=== PATIENT | female | born 1940 | race Caucasian/White ===

== ENCOUNTER 2017-10-28 13:43 | Inpatient (IN) | payer MEDICARE ==
[2017-10-28] MEDS ORDERED: SODIUM CHLORIDE 0.9% 1,000 ML IV STA (14:07)
--- NOTE | 2017-10-28 14:09 | ED ---
General Adult HPI - General Chief complaint: Recheck/Abnormal Lab/Rx Stated complaint: Ca PATIENT LOW BP, HIGH HEART RATE Time Seen by Provider: 10/28/17 14:01 Source: patient, family, RN notes reviewed Mode of arrival: wheelchair Limitations: no limitations - History of Present Illness Initial comments: Patient is a pleasant 76-year-old female presenting to the emergency department for hypotension. Patient went to her oncologist today and had blood pressure of 80. After fluids patient's blood pressure remained 90 systolic. Patient has been short of breath. Patient has been easily fatigued. No history of cardiac arrhythmia. Patient does have a history of CLL and is currently under treatment for this. - Related Data Home Medications Medication Instructions Recorded Confirmed Allopurinol [Allopurinol] 100 mg PO HS 07/20/14 10/28/17 Calcium Carbonate/Vitamin D3 1 tab PO DAILY 07/20/14 10/28/17 [Caltrate 600 Plus D3 Tablet] Cholecalciferol [Vitamin D3] 1,000 unit PO DAILY 07/20/14 10/28/17 Ferrous Sulfate [Feosol] 325 mg PO DAILY 07/20/14 10/28/17 LORazepam [Ativan] 0.5 mg PO BID PRN 07/20/14 10/28/17 Lutein 10 mg PO DAILY 07/20/14 10/28/17 Meclizine [Antivert] 25 mg PO TID PRN 07/20/14 10/28/17 Multivitamins, Thera [Multivitamin] 1 tab PO DAILY 07/20/14 10/28/17 Omeprazole [PriLOSEC] 20 mg PO DAILY 07/20/14 10/28/17 amLODIPine BESYLATE [Amlodipine 5 mg PO DAILY 07/20/14 10/28/17 Besylate] Citalopram Hydrobromide [CeleXA] 20 mg PO DAILY 10/28/17 10/28/17 Imbruvica 140mg 420 mg PO DAILY 10/28/17 10/28/17 Montelukast [Singulair] 10 mg PO HS 10/28/17 10/28/17 Allergies Allergy/AdvReac Type Severity Reaction Status Date / Time codeine Allergy Confusion Verified 10/28/17 15:03 morphine Allergy Confusion Verified 10/28/17 15:03 Penicillins AdvReac Rash/Hives Verified 10/28/17 15:03 Review of Systems ROS Statement: Those systems with pertinent positive or pertinent negative responses have been documented in the HPI. ROS Other: All systems not noted in ROS Statement are negative. Constitutional: Denies: fever Eyes: Denies: eye pain ENT: Denies: ear pain Respiratory: Reports: cough, dyspnea Cardiovascular: Denies: chest pain Endocrine: Reports: fatigue Gastrointestinal: Denies: abdominal pain Genitourinary: Denies: dysuria Musculoskeletal: Denies: back pain Skin: Denies: rash Neurological: Denies: weakness Past Medical History Past Medical History: Cancer, Hypertension, Osteoarthritis (OA) Additional Past Medical History / Comment(s): itp,cll History of Any Multi-Drug Resistant Organisms: None Reported Past Surgical History: Appendectomy, Bariatric Surgery, Cholecystectomy, Hernia Repair, Hysterectomy, Tubal Ligation Past Anesthesia/Blood Transfusion Reactions: No Reported Reaction Past Psychological History: Depression Smoking Status: Former smoker Past Alcohol Use History: None Reported Past Drug Use History: None Reported General Exam Limitations: no limitations General appearance: alert, in no apparent distress Head exam: Present: atraumatic Eye exam: Present: normal appearance, PERRL ENT exam: Present: normal oropharynx Neck exam: Present: normal inspection Respiratory exam: Present: decreased breath sounds (Right base) Cardiovascular Exam: Present: tachycardia, irregular rhythm Expanded Peripheral pulses: 2+: Radial (R), Radial (L), Posterior Tibialis (R), Posterior Tibialis (L) GI/Abdominal exam: Present: soft. Absent: tenderness Extremities exam: Present: normal inspection. Absent: pedal edema, calf tenderness Neurological exam: Present: alert Psychiatric exam: Present: normal affect, normal mood Skin exam: Present: normal color Course Vital Signs 10/28/17 10/28/17 10/28/17 13:44 14:36 14:40 Temperature 98.5 F Pulse Rate 132 H 122 H Respiratory 16 18 18 Rate Blood Pressure 131/83 123/75 O2 Sat by Pulse 95 97 Oximetry 10/28/17 15:42 Temperature Pulse Rate 125 H Respiratory 20 Rate Blood Pressure 137/84 O2 Sat by Pulse 96 Oximetry EKG Findings - EKG Comments: EKG Findings:: A. fib with RVR, rate 118. QRS 94. QT 336. QTc 470. Normal axis. T-wave inversion in inferior. Q wave in V1. Lateral ST depression. Medical Decision Making - Medical Decision Making Patient reevaluated and resting comfortably in bed. Patient and family updated on results and plan. Dr. Reyes has been paged for admission for Dr. Yuen. Cardiology will be consulted for new onset atrial fibrillation. - Lab Data Result diagrams: 10/28/17 14:30 10/28/17 14:30 Lab Results 10/28/17 10/28/17 10/28/17 Range/Units 14:30 14:30 14:30 WBC 14.1 H (3.8-10.6) k/uL RBC 3.19 L (3.80-5.40) m/uL Hgb 10.0 L (11.4-16.0) gm/dL Hct 32.0 L (34.0-46.0) % MCV 100.4 H (80.0-100.0) fL MCH 31.2 (25.0-35.0) pg MCHC 31.1 (31.0-37.0) g/dL RDW 14.8 (11.5-15.5) % Plt Count 172 (150-450) k/uL Neutrophils % (Manual) 16 % Lymphocytes % (Manual) 79 % Monocytes % (Manual) 5 % Neutrophils # (Manual) 2.26 (1.3-7.7) k/uL Lymphocytes # (Manual) 11.14 H (1.0-4.8) k/uL Monocytes # (Manual) 0.71 (0-1.0) k/uL Nucleated RBCs 0 (0-0) /100 WBC Polychromasia Present Hypochromasia Slight Poikilocytosis Slight Macrocytosis Slight PT (9.0-12.0) sec INR (<1.2) APTT (22.0-30.0) sec Sodium 143 (137-145) mmol/L Potassium 3.2 L (3.5-5.1) mmol/L Chloride 111 H (98-107) mmol/L Carbon Dioxide 25 (22-30) mmol/L Anion Gap 7 mmol/L BUN 23 H (7-17) mg/dL Creatinine 1.13 H (0.52-1.04) mg/dL Est GFR (MDRD) Af Amer 57 (>60 ml/min/1.73 sqM) Est GFR (MDRD) Non-Af 47 (>60 ml/min/1.73 sqM) Glucose 119 H (74-99) mg/dL Calcium 8.6 (8.4-10.2) mg/dL Total Bilirubin 2.4 H (0.2-1.3) mg/dL AST 16 (14-36) U/L ALT 19 (9-52) U/L Alkaline Phosphatase 71 (38-126) U/L Total Creatine Kinase <20 L (30-135) U/L CK-MB (CK-2) 0.4 (0.0-2.4) ng/mL CK-MB (CK-2) Rel Index Troponin I 0.016 (0.000-0.034) ng/mL NT-Pro-B Natriuret Pep pg/mL Total Protein 4.8 L (6.3-8.2) g/dL Albumin 2.9 L (3.5-5.0) g/dL 10/28/17 10/28/17 Range/Units 14:30 14:30 WBC (3.8-10.6) k/uL RBC (3.80-5.40) m/uL Hgb (11.4-16.0) gm/dL Hct (34.0-46.0) % MCV (80.0-100.0) fL MCH (25.0-35.0) pg MCHC (31.0-37.0) g/dL RDW (11.5-15.5) % Plt Count (150-450) k/uL Neutrophils % (Manual) % Lymphocytes % (Manual) % Monocytes % (Manual) % Neutrophils # (Manual) (1.3-7.7) k/uL Lymphocytes # (Manual) (1.0-4.8) k/uL Monocytes # (Manual) (0-1.0) k/uL Nucleated RBCs (0-0) /100 WBC Polychromasia Hypochromasia Poikilocytosis Macrocytosis PT 11.0 (9.0-12.0) sec INR 1.1 (<1.2) APTT 22.1 (22.0-30.0) sec Sodium (137-145) mmol/L Potassium (3.5-5.1) mmol/L Chloride (98-107) mmol/L Carbon Dioxide (22-30) mmol/L Anion Gap mmol/L BUN (7-17) mg/dL Creatinine (0.52-1.04) mg/dL Est GFR (MDRD) Af Amer (>60 ml/min/1.73 sqM) Est GFR (MDRD) Non-Af (>60 ml/min/1.73 sqM) Glucose (74-99) mg/dL Calcium (8.4-10.2) mg/dL Total Bilirubin (0.2-1.3) mg/dL AST (14-36) U/L ALT (9-52) U/L Alkaline Phosphatase (38-126) U/L Total Creatine Kinase (30-135) U/L CK-MB (CK-2) (0.0-2.4) ng/mL CK-MB (CK-2) Rel Index Troponin I (0.000-0.034) ng/mL NT-Pro-B Natriuret Pep 874 pg/mL Total Protein (6.3-8.2) g/dL Albumin (3.5-5.0) g/dL - Radiology Data Radiology results: image reviewed (Two-view chest x-ray shows moderate to large right-sided effusion.) Critical Care Time Critical Care Time: Yes Total Critical Care Time: 31 Disposition Clinical Impression: Atrial fibrillation with RVR Disposition: ADMITTED IP TO THIS [facility] Referrals: Jake Yuen MD [Primary Care Provider] - 1-2 days Decision Time: 15:48
--- NOTE | 2017-10-28 14:51 | XR ---
EXAMINATION TYPE: XR chest 2V DATE OF EXAM: 10/28/2017 COMPARISON: None HISTORY: 76-year-old female difficulty breathing TECHNIQUE: PA and lateral views FINDINGS: Right heart margin obscured by adjacent pleural parenchymal disease. There is a moderate to large rig ht-sided pleural effusion. Left lung and pleural space appear clear. IMPRESSION: Moderate to large right-sided pleural effusion. There could be underlying adjacent atelectasis and/or consolidation.
[2017-10-28 15:03] LABS: Hypochromasia Slight; MCH 31.2 pg (25.0-35.0); MCHC 31.1 g/dL (31.0-37.0); MCV 100.4 fL (80.0-100.0); Macrocytosis Slight; Platelet Count 172 k/uL (150-450); Poikilocytosis Slight; RBC 3.19 m/uL (3.80-5.40); RDW 14.8 % (11.5-15.5); WBC 14.1 k/uL (3.8-10.6)
[2017-10-28 15:07] LABS: Albumin 2.9 g/dL (3.5-5.0); Calcium 8.6 mg/dL (8.4-10.2); Potassium 3.2 mmol/L (3.5-5.1); Total Bilirubin 2.4 mg/dL (0.2-1.3); Total Protein 4.8 g/dL (6.3-8.2)
[2017-10-28 15:08] LABS: Creatine Kinase <20 U/L (30-135)
[2017-10-28 15:14] LABS: INR 1.1 (<1.2); Partial Thromboplastin Time 22.1 sec (22.0-30.0)
[2017-10-28 15:21] LABS: Creatine Kinase MB 0.4 ng/mL (0.0-2.4); Troponin I 0.016 ng/mL (0.000-0.034)
[2017-10-28 15:35] LABS: Lymphocytes # (M) 11.14 k/uL (1.0-4.8); Monocytes # (M) 0.71 k/uL (0-1.0); Neutrophils # (M) 2.26 k/uL (1.3-7.7); Neutrophils % (M) 16 %; Nucleated Red Blood Cells 0 /100 WBC (0-0); Polychromasia Present; Total Cells Counted 100
[2017-10-28] MEDS ORDERED: DILTIAZEM 125 MG in SODIUM CHLORIDE 0.9% 100 ML IV ONE (15:47)
[2017-10-28] MEDS ORDERED: NALOXONE 0.4 MG/ML 1 ML VIAL IV PRN (15:49)
[2017-10-28] MEDS: SODIUM CHLORIDE 0.9% 1,000 ML IV SCH (16:09)
[2017-10-28] MEDS ORDERED: MECLIZINE 25 MG TAB PO PRN (19:11)
[2017-10-28] MEDS ORDERED: Potassium Replacement Protocol 1 EACH MISC MISCELLANE PRN (19:21)
[2017-10-28] MEDS: MONTELUKAST 10 MG TAB PO SCH (20:10)
[2017-10-28] MEDS: LORazepam 0.5 MG TAB PO PRN (20:11)
[2017-10-28] MEDS: POTASSIUM CHLORIDE ER 20 MEQ TAB.ER PO SCH ×2 (20:11→22:36)
[2017-10-28] MEDS: ALLOPURINOL 100 MG TAB PO SCH (20:11)
[2017-10-29 03:47] LABS: Calcium 8.4 mg/dL (8.4-10.2); Potassium 3.3 mmol/L (3.5-5.1)
[2017-10-29] MEDS ORDERED: POTASSIUM CHLORIDE ER 20 MEQ TAB.ER PO ONE (05:30)
[2017-10-29] MEDS: PANTOPRAZOLE 40 MG TABLET PO SCH (06:19)
[2017-10-29] MEDS ORDERED: IMBRUVICA PO SCH (09:00)
[2017-10-29] MEDS ORDERED: NON-FORMULARY DRUG (Lutein [Lutein] 10 MG) PO SCH (09:00)
[2017-10-29] MEDS ORDERED: POTASSIUM CHLORIDE ER 20 MEQ TAB.ER PO STA (09:12)
--- NOTE | 2017-10-29 09:40 | US ---
EXAMINATION TYPE: US chest DATE OF EXAM: 10/29/2017 COMPARISON: 10/28/2017 CLINICAL HISTORY: Markings for thoracentesis by pulmonary staff. EXAM MEASUREMENTS: Right Pleural Effusion fluid pocket: 7.9 cm Right skin to fluid thickness: 2.0 cm Right side marked for possible thoracentesis outside the dept. Pulmonologists are able to review the images in the patient?s EMR. IMPRESSIONS: Redemonstration of a moderate to large right pleural effusion marked for thoracentesis.
[2017-10-29] MEDS: amLODIPine 5 MG TAB PO SCH (10:20)
[2017-10-29] MEDS: CITALOPRAM HYDROBROMIDE 20 MG TAB PO SCH (10:20)
--- NOTE | 2017-10-29 12:20 | P.CNPUL ---
History of Present Illness Consult date: 10/29/17 Requesting physician: Franck Reyes Reason for consult: dyspnea, abnormal CXR/CT Chief complaint: Shortness of breath, fatigue, weakness History of present illness: This is a very pleasant 76-year-old female patient who is with Dr. Yuen as her primary care physician. She has a history of hypertension, osteoarthritis, depression, previous smoking history. She also has a history of chronic lymphocytic leukemia and follows with Dr. Scherer for the same. She is on Imbruvica. She was seen yesterday at the oncology office and was found to be quite hypotensive. She was given a liter of fluid resuscitation without much improvement. She was quite fatigued and weak. She's also been having ongoing issues with shortness of breath. Her chest x-ray showed moderate to large right -sided pleural effusion with atelectasis. She was being set up for an outpatient thoracentesis along with IVIG treatment for next week however based on yesterday's finding she was admitted to the hospital. She was also found to be in atrial fibrillation with a rapid ventricular response which was new for the patient. She has since converted to sinus rhythm post-Cardizem drip. We are consulted for the large pleural effusion. An ultrasound of the chest shows a right-sided pocket of 7.9 cm. He is seen today in consultation on the active care unit. She is awake and alert in no acute distress. She is doing quite a bit better today as compared to yesterday. She is feeling stronger. She does have ongoing issues with shortness of breath on exertion. He is maintaining good O2 saturations in the 90s on 2 L/m per nasal cannula. Her blood pressure has recovered. She is hemodynamically stable. Afebrile. Results revealed WBC 14.1. Hemoglobin 10.0. Platelet count 172,000. Creatinine 1.20. ProBNP 874. Troponins negative 3. Review of Systems Constitutional: Reports fatigue, Reports malaise, Reports weakness Eyes: denies blurred vision, denies decreased vision Ears, nose, mouth and throat: Denies headache, Denies sore throat Cardiovascular: Reports irregular heart beat, Reports palpitations, Reports shortness of breath Respiratory: Reports congestion, Reports cough with sputum, Reports dyspnea Gastrointestinal: Denies abdominal pain, Denies diarrhea, Denies nausea, Denies vomiting Genitourinary: Denies dysuria, Denies hematuria Musculoskeletal: Denies myalgias Integumentary: Denies pruritus, Denies rash Neurological: Denies numbness, Denies weakness Psychiatric: Reports depression Past Medical History Past Medical History: Cancer, Hypertension, Osteoarthritis (OA) Additional Past Medical History / Comment(s): itp,cll, gastric bypass History of Any Multi-Drug Resistant Organisms: None Reported Past Surgical History: Appendectomy, Bariatric Surgery, Cholecystectomy, Hernia Repair, Tubal Ligation Past Anesthesia/Blood Transfusion Reactions: No Reported Reaction Past Psychological History: Depression Smoking Status: Former smoker Past Alcohol Use History: None Reported Past Drug Use History: None Reported - Past Family History Mother Family Medical History: Chest Pain / Angina, Myocardial Infarction (DC) Father Family Medical History: Chest Pain / Angina, Coronary Artery Disease (CAD), Myocardial Infarction (DC) Sister(s) Additional Family Medical History / Comment(s): kidney disease- hemodialysis Medications and Allergies Home Medications Medication Instructions Recorded Confirmed Type Allopurinol [Allopurinol] 100 mg PO HS 07/20/14 10/28/17 History Calcium Carbonate/Vitamin D3 1 tab PO DAILY 07/20/14 10/28/17 History [Caltrate 600 Plus D3 Tablet] Cholecalciferol [Vitamin D3] 1,000 unit PO DAILY 07/20/14 10/28/17 History Ferrous Sulfate [Feosol] 325 mg PO DAILY 07/20/14 10/28/17 History LORazepam [Ativan] 0.5 mg PO BID PRN 07/20/14 10/28/17 History Lutein 10 mg PO DAILY 07/20/14 10/28/17 History Meclizine [Antivert] 25 mg PO TID PRN 07/20/14 10/28/17 History Multivitamins, Thera [Multivitamin] 1 tab PO DAILY 07/20/14 10/28/17 History Omeprazole [PriLOSEC] 20 mg PO DAILY 07/20/14 10/28/17 History amLODIPine BESYLATE [Amlodipine 5 mg PO DAILY 07/20/14 10/28/17 History Besylate] Citalopram Hydrobromide [CeleXA] 20 mg PO DAILY 10/28/17 10/28/17 History Imbruvica 140mg 420 mg PO DAILY 10/28/17 10/28/17 History Montelukast [Singulair] 10 mg PO HS 10/28/17 10/28/17 History Allergies Allergy/AdvReac Type Severity Reaction Status Date / Time codeine Allergy Confusion Verified 10/28/17 15:03 morphine Allergy Confusion Verified 10/28/17 15:03 Penicillins AdvReac Rash/Hives Verified 10/28/17 15:03 Physical Exam Vitals: Vital Signs Temp Pulse Pulse Resp BP BP Pulse Ox 10/29/17 08:00 95 20 146/63 96 10/29/17 04:00 98.1 F 77 18 113/62 95 10/29/17 00:00 97.7 F 84 18 127/62 94 L 10/28/17 20:00 98.1 F 88 18 101/51 95 10/28/17 19:13 97.4 F L 106 H 18 117/64 96 10/28/17 16:45 97.8 F 110 H 20 125/63 96 10/28/17 15:42 125 H 20 137/84 96 10/28/17 14:40 18 10/28/17 14:36 122 H 18 123/75 97 10/28/17 13:44 98.5 F 132 H 16 131/83 95 Intake and Output 10/28/17 10/29/17 10/29/17 22:59 06:59 14:59 Intake Total 424.667 700 Output Total 300 225 Balance 124.667 475 Intake: Amount of Fluid Infused ( 300 ml) Intake, IV Titration 4.667 700 Amount Diltiazem 125 mg In 4.667 Sodium Chloride 0.9% 100 ml @ 5 MG/HR 5 mls/hr IV .Q24H [facility] Rx#:[id number] Sodium Chloride 0.9% 1, 700 000 ml @ 20 mls/hr IV . Q24H [facility] Rx#:[id number] Oral 120 Output: Urine 300 225 Other: Voiding Method Toilet Toilet Toilet # Bowel Movements 1 Weight 68 kg 70.1 kg GENERAL EXAM: Pale, cachectic. Alert, fairly comfortable in no apparent distress. HEAD: Normocephalic. EYES: Normal reaction of pupils, equal size. NOSE: Clear with pink turbinates. THROAT: No erythema or exudates. NECK: No masses, no JVD. CHEST: No chest wall deformity. LUNGS: Diminished in the right lung. CVS: S1 and S2 normal with no audible murmur, regular rhythm. ABDOMEN: No hepatosplenomegaly, normal bowel sounds, no guarding or rigidity. SPINE: Kyphoscoliosis SKIN: No rashes CENTRAL NERVOUS SYSTEM: No focal deficits, tone is normal in all 4 extremities. EXTREMITIES: There is no peripheral edema. No clubbing, no cyanosis. Peripheral pulses are intact. Results - Laboratory Findings CBC and BMP: 10/28/17 14:30 10/29/17 08:10 PT/INR, D-dimer PT 11.0 sec (9.0-12.0) 10/28/17 14:30 INR 1.1 (<1.2) 10/28/17 14:30 Abnormal lab findings: Abnormal Labs 10/28/17 10/28/17 10/28/17 14:30 14:30 14:30 WBC 14.1 H RBC 3.19 L Hgb 10.0 L Hct 32.0 L MCV 100.4 H Lymphocytes # (Manual) 11.14 H Potassium 3.2 L Chloride 111 H BUN 23 H Creatinine 1.13 H Glucose 119 H Total Bilirubin 2.4 H Total Creatine Kinase <20 L Total Protein 4.8 L Albumin 2.9 L 10/29/17 10/29/17 02:37 08:10 WBC RBC Hgb Hct MCV Lymphocytes # (Manual) Potassium 3.3 L 3.3 L Chloride 114 H BUN 23 H Creatinine 1.20 H Glucose Total Bilirubin Total Creatine Kinase Total Protein Albumin - Diagnostic Findings Chest x-ray: image reviewed Assessment and Plan Assessment: Impression: #1 Hypotension secondary to dehydration. Recovered. #2 Acute hypoxic respiratory failure secondary to large right pleural effusion. #3 Chronic lymphocytic leukemia currently receiving Imbruvica. #4 new-onset atrial fibrillation, currently in normal sinus rhythm. #5 History of arthritis. #6 History of hypertension. Plan: The patient was seen and evaluated by Dr. Chavez. We'll go ahead and plan for a right-sided thoracentesis. We'll send the fluid for cytology and analysis. She is otherwise stable from the pulmonary standpoint. We'll continue to follow and make further recommendations based on her clinical status. I, the cosigning physician, performed a history & physical examination of the patient. Lungs sounds are distant the right Maintaining good O2 saturations in the 90s on liters per minute per nasal cannula. I discussed the assessment and plan of care with my nurse practitioner, Rachel Rojas. I attest to the above note as dictated by her. Time with Patient: Greater than 30
--- NOTE | 2017-10-29 12:35 | P.CRDCN ---
History of Present Illness Consult date: 10/29/17 Requesting physician: Franck Reyes Reason for Consult (text): Atrial fibrillation Chief complaint: hypotension History of present illness: This is a pleasant 76-year-old female with history of CLL, hypertension and history of thrombocytopenia a few years ago. She has been apparently dealing with some pneumonia over the last several weeks and receiving antibiotics and steroids as an outpatient. Was sent to the emergency department after presenting to her oncologist's office and noted to have hypotension and elevated heart rate. She was bolused with normal saline while at her oncologist 's office with mild improvement in blood pressure. Upon arrival, she was found to be in atrial fibrillation with rapid ventricular response. Laboratory values are reviewed and showed a hemoglobin of 10, platelet count of 172,000, creatinine 1.2 and NT proBNP of 874 and troponins negative 3. Chest x-ray showed moderate to large right-sided pleural effusion. She subsequently underwent ultrasound of the chest that showed a 7.9 cm right sided fluid pocket which was marked for thoracentesis. She will likely be undergoing thoracentesis today by pulmonary. She's been on a Cardizem drip at 5 mg an hour. She has converted to sinus rhythm. Upon examination, patient complains of shortness of breath and difficulty taking a breath in. Her blood pressure has improved. She has no complaints of chest discomfort or palpitations at this time. She has noticed her heart racing over the last several weeks. Past Medical History Past Medical History: Cancer, Hypertension, Osteoarthritis (OA) Additional Past Medical History / Comment(s): itp,cll, gastric bypass History of Any Multi-Drug Resistant Organisms: None Reported Past Surgical History: Appendectomy, Bariatric Surgery, Cholecystectomy, Hernia Repair, Tubal Ligation Past Anesthesia/Blood Transfusion Reactions: No Reported Reaction Past Psychological History: Depression Smoking Status: Former smoker Past Alcohol Use History: None Reported Past Drug Use History: None Reported - Past Family History Mother Family Medical History: Chest Pain / Angina, Myocardial Infarction ([place]) Father Family Medical History: Chest Pain / Angina, Coronary Artery Disease (CAD), Myocardial Infarction ([place]) Sister(s) Additional Family Medical History / Comment(s): kidney disease- hemodialysis Medications and Allergies Home Medications Medication Instructions Recorded Confirmed Type Allopurinol [Allopurinol] 100 mg PO HS 07/20/14 10/28/17 History Calcium Carbonate/Vitamin D3 1 tab PO DAILY 07/20/14 10/28/17 History [Caltrate 600 Plus D3 Tablet] Cholecalciferol [Vitamin D3] 1,000 unit PO DAILY 07/20/14 10/28/17 History Ferrous Sulfate [Feosol] 325 mg PO DAILY 07/20/14 10/28/17 History LORazepam [Ativan] 0.5 mg PO BID PRN 07/20/14 10/28/17 History Lutein 10 mg PO DAILY 07/20/14 10/28/17 History Meclizine [Antivert] 25 mg PO TID PRN 07/20/14 10/28/17 History Multivitamins, Thera [Multivitamin] 1 tab PO DAILY 07/20/14 10/28/17 History Omeprazole [PriLOSEC] 20 mg PO DAILY 07/20/14 10/28/17 History amLODIPine BESYLATE [Amlodipine 5 mg PO DAILY 07/20/14 10/28/17 History Besylate] Citalopram Hydrobromide [CeleXA] 20 mg PO DAILY 10/28/17 10/28/17 History Imbruvica 140mg 420 mg PO DAILY 10/28/17 10/28/17 History Montelukast [Singulair] 10 mg PO HS 10/28/17 10/28/17 History Allergies Allergy/AdvReac Type Severity Reaction Status Date / Time codeine Allergy Confusion Verified 10/28/17 15:03 morphine Allergy Confusion Verified 10/28/17 15:03 Penicillins AdvReac Rash/Hives Verified 10/28/17 15:03 Physical Exam Vitals: Vital Signs Temp Pulse Pulse Resp BP BP Pulse Ox 10/29/17 08:00 95 20 146/63 96 10/29/17 04:00 98.1 F 77 18 113/62 95 10/29/17 00:00 97.7 F 84 18 127/62 94 L 10/28/17 20:00 98.1 F 88 18 101/51 95 10/28/17 19:13 97.4 F L 106 H 18 117/64 96 10/28/17 16:45 97.8 F 110 H 20 125/63 96 10/28/17 15:42 125 H 20 137/84 96 10/28/17 14:40 18 10/28/17 14:36 122 H 18 123/75 97 02/22/18 13:44 98.5 F 132 H 16 131/83 95 Intake and Output 10/28/17 10/29/17 10/29/17 22:59 06:59 14:59 Intake Total 424.667 700 Output Total 300 225 Balance 124.667 475 Intake: Amount of Fluid Infused ( 300 ml) Intake, IV Titration 4.667 700 Amount Diltiazem 125 mg In 4.667 Sodium Chloride 0.9% 100 ml @ 5 MG/HR 5 mls/hr IV .Q24H [facility] Rx#:[id number] Sodium Chloride 0.9% 1, 700 000 ml @ 20 mls/hr IV . Q24H [facility] Rx#:[id number] Oral 120 Output: Urine 300 225 Other: Voiding Method Toilet Toilet Toilet # Bowel Movements 1 Weight 68 kg 70.1 kg PHYSICAL EXAMINATION: HEENT: Head is atraumatic, normocephalic. Pupils equal, round. Neck is supple. There is no elevated jugular venous pressure. HEART EXAMINATION: Heart sounds regular, S1 and S2 normal. No murmur or gallop heard. CHEST EXAMINATION: Lungs reveal diminished air entry to right lower lobe. No chest wall tenderness is noted on palpation or with deep breathing. ABDOMEN: Soft, nontender. Bowel sounds are heard. No organomegaly noted. EXTREMITIES: 2+ peripheral pulses with no evidence of peripheral edema and no calf tenderness noted. NEUROLOGIC patient is awake, alert and oriented x3. . Results 10/28/17 14:30 10/29/17 08:10 Cardiac Enzymes 10/28/17 10/28/17 10/28/17 Range/Units 14:30 14:30 20:17 AST 16 (14-36) U/L CK-MB (CK-2) 0.4 (0.0-2.4) ng/mL Troponin I 0.016 0.015 (0.000-0.034) ng/mL 10/29/17 Range/Units 02:37 AST (14-36) U/L CK-MB (CK-2) (0.0-2.4) ng/mL Troponin I 0.016 (0.000-0.034) ng/mL Coagulation 10/28/17 Range/Units 14:30 PT 11.0 (9.0-12.0) sec APTT 22.1 (22.0-30.0) sec CBC 10/28/17 Range/Units 14:30 WBC 14.1 H (3.8-10.6) k/uL RBC 3.19 L (3.80-5.40) m/uL Hgb 10.0 L (11.4-16.0) gm/dL Hct 32.0 L (34.0-46.0) % Plt Count 172 (150-450) k/uL Comprehensive Metabolic Panel 10/28/17 10/29/17 10/29/17 Range/Units 14:30 02:37 08:10 Sodium 143 144 (137-145) mmol/L Potassium 3.2 L 3.3 L 3.3 L (3.5-5.1) mmol/L Chloride 111 H 114 H (98-107) mmol/L Carbon Dioxide 25 26 (22-30) mmol/L BUN 23 H 23 H (7-17) mg/dL Creatinine 1.13 H 1.20 H (0.52-1.04) mg/dL Glucose 119 H 82 (74-99) mg/dL Calcium 8.6 8.4 (8.4-10.2) mg/dL AST 16 (14-36) U/L ALT 19 (9-52) U/L Alkaline Phosphatase 71 (38-126) U/L Total Protein 4.8 L (6.3-8.2) g/dL Albumin 2.9 L (3.5-5.0) g/dL Current Medications Generic Name Dose Route Start Last Admin Trade Name Freq PRN Reason Stop Dose Admin Allopurinol 100 mg 10/28/17 21:00 10/28/17 20:11 Zyloprim PO 100 mg HS [facility] Administration Amlodipine Besylate 5 mg 10/29/17 09:00 10/29/17 10:20 Norvasc PO 5 mg DAILY [facility] Administration Calcium Carbonate 1 each 10/29/17 12:00 Oscal 500+D PO DAILY@1200 [facility] Cholecalciferol 1,000 unit 10/29/17 12:00 Vitamin D3 PO 1200 [facility] Citalopram Hydrobromide 20 mg 10/29/17 09:00 10/29/17 10:20 Celexa PO 20 mg DAILY [facility] Administration Ferrous Sulfate 325 mg 10/29/17 12:00 Feosol PO 1200 [facility] Sodium Chloride 1,000 mls @ 20 mls/hr 10/28/17 16:00 10/28/17 16:09 Saline 0.9% IV 20 mls/hr .Q24H [facility] Administration Lorazepam 0.5 mg 10/28/17 19:11 10/28/17 20:11 Ativan PO 0.5 mg BID PRN Administration Anxiety Meclizine HCl 25 mg 10/28/17 19:11 Antivert PO TID PRN Motion Sickness Miscellaneous Information 1 each 10/28/17 19:21 Potassium Per Protocol MISCELLANE DAILY PRN Per Protocol Protocol Montelukast Sodium 10 mg 10/28/17 21:00 10/28/17 20:10 Singulair PO 10 mg HS [facility] Administration Multivitamins 1 each 10/29/17 12:00 Theragran PO 1200 [facility] Naloxone HCl 0.2 mg 10/28/17 15:49 Narcan IV Q2M PRN Opioid Reversal Non-Formulary Medication 420 mg 10/29/17 09:00 10/29/17 10:25 Imbruvica 140mg PO Not Given DAILY [facility] Pantoprazole Sodium 40 mg 10/29/17 07:30 10/29/17 06:19 Protonix PO 40 mg [id number] [facility] Administration Intake and Output 10/28/17 10/29/17 10/29/17 22:59 06:59 14:59 Intake Total 424.667 700 Output Total 300 225 Balance 124.667 475 Intake: Amount of Fluid Infused ( 300 ml) Intake, IV Titration 4.667 700 Amount Diltiazem 125 mg In 4.667 Sodium Chloride 0.9% 100 ml @ 5 MG/HR 5 mls/hr IV .Q24H [facility] Rx#:[id number] Sodium Chloride 0.9% 1, 700 000 ml @ 20 mls/hr IV . Q24H [facility] Rx#:[id number] Oral 120 Output: Urine 300 225 Other: Voiding Method Toilet Toilet Toilet # Bowel Movements 1 Weight 68 kg 70.1 kg 10/28/17 14:30 10/29/17 08:10 EKG Interpretations (text) Initially showed atrial fibrillation with rapid ventricular response, subsequent EKG shows sinus rhythm with nonspecific ST-T wave abnormalities. Assessment and Plan Assessment: #1 new onset atrial fibrillation with rapid ventricular response, paroxysmal, currently maintaining sinus rhythm #2 hypotension, improved #3 acute hypoxic respiratory failure secondary to moderate to large right pleural effusion #4 chronic lymphocytic leukemia currently receiving treatment with imbruvica #5 history of hypertension Plan: From cardiology perspective, we'll discontinue IV Cardizem. We'll start the patient on metoprolol which is to be held if systolic blood pressures less than 100 mmHg. We will hold off on anticoagulation at this time due to pending thoracentesis. We will continue to follow the patient provide further recommendations accordingly. [facility] [employer] note has been reviewed, I agree with a documented findings and plan of care. Patient was seen and examined.
[2017-10-29] MEDS: CALCIUM CARB-VIT D 500MG-200UN 1 EACH TAB PO SCH (13:19)
[2017-10-29] MEDS: FERROUS SULFATE 325 MG TAB PO SCH (13:19)
[2017-10-29] MEDS: MULTIVITAMINS, THERA 1 EACH TAB PO SCH (13:19)
[2017-10-29] MEDS: CHOLECALCIFEROL 1,000 UNIT TAB PO SCH (13:19)
--- NOTE | 2017-10-29 14:53 | XR ---
EXAMINATION TYPE: XR chest 1V portable DATE OF EXAM: 10/29/2017 COMPARISON: 10/28/2017 HISTORY: Status post right-sided thoracentesis TECHNIQUE: Single frontal view of the chest is obtained. FINDINGS: There is elevation of the right minor fissure with intrafissural fluid and perifissural co nsolidation emanating from the right hilum. There is additionally elevation of the right hemidiaphrag m but improvement in the previously seen moderate pleural effusion, now small. Remainder the lungs ar e clear. No left-sided pleural effusion. No pneumothorax. Cardiac silhouette is within normal limits. Osseous structures appear intact. IMPRESSION: 1. No postprocedural pneumothorax. 2. Improved degree of right-sided pleural effusion, now small with right hemidiaphragm elevation. Com ponent of this could also relate to a subpulmonic effusion. 3. Right perihilar airspace disease with elevation of the right minor fissure favored to represent at electasis and interfissural fluid.
[2017-10-29 15:36] LABS: Appearance,BF Bloody; Nucleated Cells, Body Fluid 1300 /uL; RBC, Body Fluid 47700 /uL
--- NOTE | 2017-10-29 15:48 | P.HPIM ---
History of Present Illness H&P Date: 10/29/17 Chief Complaint: Weakness This is a 76-year-old female patient of Dr. Yuen and Dr. Garcia with past medical history significant for CLL, hypertension, osteoarthritis, ITP. A Chin gives history that she has been treated for pneumonia about [address] Yuen and placed on antibiotic. She underwent a CAT scan at [facility] and was then placed on another course of antibiotics and also steroids. During this time she also was started on water pills possibly by Dr. Garcia. She was known to have a right-sided pleural effusion. Patient was at Dr. Garcia's office yesterday and her blood pressure was low. She received IV fluids the blood pressure continued to be low and she was sent to emergency center for evaluation. Patient states that she did have a cough that was nonproductive but this is resolved. She does complain of weakness but no lightheadedness or dizziness. She denies any dysuria. She states that she cannot get enough air and she has been very short of breath. She had a chest x-ray that shows moderate to large right-sided pleural effusion. There could be underlying adjacent atelectasis and/or consolidation. White count was 14.1, hemoglobin 10, platelet count 172, potassium 3.2, BUN 23 and creatinine 1.13. Troponin was 0.016. Total bilirubin 2.4 and liver enzymes within normal limits. ProBNP 874. Patient was found to be in atrial fibrillation with RVR running in the 120s which is new onset. Daughter states the patient has had a 30 pound weight loss since August. She has not eating well and in general not feeling good. Ensure has been ordered. Patient is also scheduled for IVIG next week which she receives about 2 times per year. Review of Systems All systems: negative Constitutional: Reports anorexia, Reports fatigue, Reports poor appetite, Reports weakness, Reports weight loss, Denies chills, Denies fever, Denies weight gain Eyes: denies blurred vision, denies pain Ears, nose, mouth and throat: Denies headache, Denies sore throat Cardiovascular: Reports decreased exercise tolerance, Reports dyspnea on exertion, Reports shortness of breath, Denies chest pain, Denies leg edema, Denies lightheadedness, Denies syncope Respiratory: Reports cough, Reports dyspnea, Denies cough with sputum, Denies excessive sputum, Denies hemoptysis, Denies home oxygen, Denies wheezing Gastrointestinal: Denies abdominal pain, Denies diarrhea, Denies nausea, Denies vomiting Genitourinary: Denies dysuria, Denies hematuria Musculoskeletal: Denies myalgias Integumentary: Denies pruritus, Denies rash Neurological: Denies numbness, Denies weakness Psychiatric: Denies anxiety, Denies depression Endocrine: Denies fatigue, Denies weight change Past Medical History Past Medical History: Cancer, Hypertension, Osteoarthritis (OA) Additional Past Medical History / Comment(s): itp,cll, gastric bypass History of Any Multi-Drug Resistant Organisms: None Reported Past Surgical History: Appendectomy, Bariatric Surgery, Cholecystectomy, Hernia Repair, Tubal Ligation Past Anesthesia/Blood Transfusion Reactions: No Reported Reaction Past Psychological History: Depression Smoking Status: Former smoker Past Alcohol Use History: None Reported Additional Past Alcohol Use History / Comment(s): Patient was a smoker in the past and quit 20-30 years ago. No marijuana, street drug or alcohol use. She lives at home and her 2 adult sons live with her one has history of cerebral palsy. Past Drug Use History: None Reported - Past Family History Mother Family Medical History: Chest Pain / Angina, Myocardial Infarction ([place]) Additional Family Medical History / Comment(s): Mother at age 86 from heart failure. Father Family Medical History: Chest Pain / Angina, Coronary Artery Disease (CAD), Myocardial Infarction ([place]) Additional Family Medical History / Comment(s): Father at age 76 from a myocardial infarction. Sister(s) Additional Family Medical History / Comment(s): One sister from end-stage renal disease on hemodialysis. One sister from valvular cancer. Brother(s) Additional Family Medical History / Comment(s): Patient has one brother with coronary artery disease and Alzheimer's dementia. Medications and Allergies Home Medications Medication Instructions Recorded Confirmed Type Allopurinol [Allopurinol] 100 mg PO HS 07/20/14 10/28/17 History Calcium Carbonate/Vitamin D3 1 tab PO DAILY 07/20/14 10/28/17 History [Caltrate 600 Plus D3 Tablet] Cholecalciferol [Vitamin D3] 1,000 unit PO DAILY 07/20/14 10/28/17 History Ferrous Sulfate [Feosol] 325 mg PO DAILY 07/20/14 10/28/17 History LORazepam [Ativan] 0.5 mg PO BID PRN 07/20/14 10/28/17 History Lutein 10 mg PO DAILY 07/20/14 10/28/17 History Meclizine [Antivert] 25 mg PO TID PRN 07/20/14 10/28/17 History Multivitamins, Thera [Multivitamin] 1 tab PO DAILY 07/20/14 10/28/17 History Omeprazole [PriLOSEC] 20 mg PO DAILY 07/20/14 10/28/17 History amLODIPine BESYLATE [Amlodipine 5 mg PO DAILY 07/20/14 10/28/17 History Besylate] Citalopram Hydrobromide [CeleXA] 20 mg PO DAILY 10/28/17 10/28/17 History Imbruvica 140mg 420 mg PO DAILY 10/28/17 10/28/17 History Montelukast [Singulair] 10 mg PO HS 10/28/17 10/28/17 History Allergies Allergy/AdvReac Type Severity Reaction Status Date / Time codeine Allergy Confusion Verified 10/28/17 15:03 morphine Allergy Confusion Verified 10/28/17 15:03 Penicillins AdvReac Rash/Hives Verified 10/28/17 15:03 Physical Exam Vitals: Vital Signs Temp Pulse Pulse Resp BP BP Pulse Ox 10/29/17 08:00 95 20 146/63 96 10/29/17 04:00 98.1 F 77 18 113/62 95 10/29/17 00:00 97.7 F 84 18 127/62 94 L 10/28/17 20:00 98.1 F 88 18 101/51 95 10/28/17 19:13 97.4 F L 106 H 18 117/64 96 10/28/17 16:45 97.8 F 110 H 20 125/63 96 10/28/17 15:42 125 H 20 137/84 96 10/28/17 14:40 18 10/28/17 14:36 122 H 18 123/75 97 Intake and Output 10/28/17 10/29/17 10/29/17 22:59 06:59 14:59 Intake Total 424.667 700 240 Output Total 300 225 Balance 124.667 475 240 Intake: Amount of Fluid Infused ( 300 ml) Intake, IV Titration 4.667 700 Amount Diltiazem 125 mg In 4.667 Sodium Chloride 0.9% 100 ml @ 5 MG/HR 5 mls/hr IV .Q24H [facility] Rx#:[id number] Sodium Chloride 0.9% 1, 700 000 ml @ 20 mls/hr IV . Q24H [facility] Rx#:[id number] Oral 120 240 Output: Urine 300 225 Other: Voiding Method Toilet Toilet Toilet # Bowel Movements 1 Weight 68 kg 70.1 kg 70.1 kg Patient Weight 10/30/17 06:59 Weight 70.1 kg - Constitutional General appearance: average body habitus, cooperative, no disheveled, no mild distress, no morbidly obese, no acute distress, no obese, no severe distress, no thin - EENT Eyes: anicteric sclerae, PERRLA - Respiratory Respiratory: right: diminished, negative: wheezing - Cardiovascular Rhythm: regular Heart sounds: normal: S1, S2 Abnormal Heart Sounds: no systolic murmur, no diastolic murmur - Gastrointestinal General gastrointestinal: no absent bowel sounds, no decreased bowel sounds, no distended, no hepatomegaly, no hyperactive bowel sounds, normal bowel sounds, no organomegaly, no rigid, no scaphoid, soft, no splenomegaly, no tenderness, no umbilical hernia, no ventral hernia - Integumentary Integumentary: normal - Neurologic Neurologic: CNII-XII intact - Musculoskeletal Musculoskeletal: generalized weakness - Psychiatric Psychiatric: A&O x's 3, appropriate affect, intact judgment & insight Results CBC & Chem 7: 10/28/17 14:30 10/29/17 12:33 Labs: Abnormal Lab Results - Last 24 Hours (Table) 10/28/17 10/28/17 10/28/17 Range/Units 14:30 14:30 14:30 WBC 14.1 H (3.8-10.6) k/uL RBC 3.19 L (3.80-5.40) m/uL Hgb 10.0 L (11.4-16.0) gm/dL Hct 32.0 L (34.0-46.0) % MCV 100.4 H (80.0-100.0) fL Lymphocytes # (Manual) 11.14 H (1.0-4.8) k/uL Potassium 3.2 L (3.5-5.1) mmol/L Chloride 111 H (98-107) mmol/L BUN 23 H (7-17) mg/dL Creatinine 1.13 H (0.52-1.04) mg/dL Glucose 119 H (74-99) mg/dL Total Bilirubin 2.4 H (0.2-1.3) mg/dL Total Creatine Kinase <20 L (30-135) U/L Total Protein 4.8 L (6.3-8.2) g/dL Albumin 2.9 L (3.5-5.0) g/dL 10/29/17 10/29/17 Range/Units 02:37 08:10 WBC (3.8-10.6) k/uL RBC (3.80-5.40) m/uL Hgb (11.4-16.0) gm/dL Hct (34.0-46.0) % MCV (80.0-100.0) fL Lymphocytes # (Manual) (1.0-4.8) k/uL Potassium 3.3 L 3.3 L (3.5-5.1) mmol/L Chloride 114 H (98-107) mmol/L BUN 23 H (7-17) mg/dL Creatinine 1.20 H (0.52-1.04) mg/dL Glucose (74-99) mg/dL Total Bilirubin (0.2-1.3) mg/dL Total Creatine Kinase (30-135) U/L Total Protein (6.3-8.2) g/dL Albumin (3.5-5.0) g/dL Thrombosis Risk Factor Assmnt - DVT/VTE Prophylaxis DVT/VTE Prophylaxis: Pharmacologic Prophylaxis ordered - Choose All That Apply Each Risk Factor Represents 3 Points: Age 75 years or older Thrombosis Risk Factor Assessment Total Risk Factor Score: 3 Thrombosis Risk Factor Assessment Level: Moderate Risk Assessment and Plan Plan: 1. Hypotension secondary to a combination of dehydration and atrial fibrillation with RVR. 2. New onset atrial fibrillation with rapid ventricular response, converted to sinus rhythm. Cardiology consult is appreciated. IV Cardizem discontinued. Patient started on Lopressor. No anticoagulation in case patient needs thoracentesis.. 3. Acute hypoxic respiratory failure secondary to a large right-sided pleural effusion. Consult with Dr. Chavez. Patient underwent ultrasound for right- sided thoracentesis. Continue oxygen therapy. 4. Chronic lymphocytic leukemia under the care of Dr Garcia. Patient is on Imbruvica. 5. Gastroesophageal reflux disease and GI prophylaxis. Continue omeprazole. 6. Hypertension. Continue amlodipine 5 mg daily. 7. Anemia of chronic disease. Continue ferrous sulfate. 8. Gout. Continue allopurinol. 9. General anxiety disorder and recurrent depression. Continue Ativan as needed and Celexa 20 mg daily. 10. DVT prophylaxis. KAMERON estrada and SCDs. Patient will be admitted to the hospital for a minimum of 2 night stay. Discharge plan: Return home, patient may benefit from home care. Impression and plan of care have been directed as dictated by the signing physician. Maggi Watson nurse practitioner acting as scribe for signing physician.
[2017-10-29 16:01] LABS: Mononuclear WBC,Body Fluid 100 %; Total Cells Counted,Body Fluid 100
[2017-10-29] MEDS: IMBRUVICA PO SCH (17:20)
[2017-10-29] MEDS: SODIUM CHLORIDE 0.9% 1,000 ML IV SCH (17:27)
[2017-10-29 18:59] LABS: Total Protein, Body Fluid 2800 mg/dL
[2017-10-29] MEDS: ALLOPURINOL 100 MG TAB PO SCH (20:23)
[2017-10-29] MEDS: METOPROLOL TARTRATE 12.5 MG TAB PO SCH (20:23)
[2017-10-29] MEDS: LORazepam 0.5 MG TAB PO PRN (20:23)
[2017-10-29] MEDS: MONTELUKAST 10 MG TAB PO SCH (20:24)
--- NOTE | 2017-10-29 21:24 | PCN ---
PROCEDURE NOTE OPERATIVE REPORT: Right-sided thoracentesis. PREOPERATIVE DIAGNOSIS: Large right pleural effusion. POSTOPERATIVE DIAGNOSIS: Large right sided pleural effusion. ANESTHESIA: Used 3 mL 1% lidocaine. PROCEDURE: Patient was placed in a sitting upright position, the area below the right scapula was prepared in a sterile fashion and drapes were applied. The area at the level of the 8th intercostal space and tip of the scapula was locally anesthetized and it was earlier localized by ultrasound guidance. 26-gauge needle was inserted at the same site, advanced into the pleural space until the fluid was localized with the needle. Then a stab wound was made in the skin with a 11 scalpel. A standard thoracentesis catheter and needle were used, advanced into the same site in this stab wound area and advanced into the pleural space until fluid was obtained. Then, the catheter was advanced over the needle into the pleural space, and the needle was pulled out of the pleural space. The free-flowing fluid which was serosanguineous was removed, and a total of 2000 mL of serosanguineous fluid was removed from the right pleural space. A chest x-ray postoperatively showed no evidence of complications, there was evidence of a fluid in the right minor fissure or possibly atelectasis in the right upper lobe area. Again, no evidence of pneumothorax and no immediate complications. Procedure was well tolerated. Fluid was sent for different diagnostic studies. MMODL / IJN: [id number] /
[2017-10-30] MEDS: PANTOPRAZOLE 40 MG TABLET PO SCH (05:53)
[2017-10-30 06:09] LABS: HCT 27.7 % (34.0-46.0); Hypochromasia Marked; MCH 31.1 pg (25.0-35.0); MCHC 30.3 g/dL (31.0-37.0); MCV 102.8 fL (80.0-100.0); Macrocytosis Slight; Mean Platelet Volume 8.9; Platelet Count 139 k/uL (150-450); Poikilocytosis Slight; RDW 14.7 % (11.5-15.5); WBC 15.7 k/uL (3.8-10.6)
[2017-10-30 06:26] LABS: Anion Gap 3 mmol/L; Blood Urea Nitrogen 19 mg/dL (7-17); Calcium 8.5 mg/dL (8.4-10.2); Carbon Dioxide 25 mmol/L (22-30); Chloride 114 mmol/L (98-107); Glucose 80 mg/dL (74-99); Potassium 3.8 mmol/L (3.5-5.1); Sodium 142 mmol/L (137-145)
[2017-10-30 06:31] LABS: HGB 8.4 gm/dL (11.4-16.0)
[2017-10-30] MEDS: IMBRUVICA PO SCH (08:20)
[2017-10-30] MEDS: METOPROLOL TARTRATE 12.5 MG TAB PO SCH ×2 (08:20→21:12)
[2017-10-30] MEDS: CITALOPRAM HYDROBROMIDE 20 MG TAB PO SCH (08:20)
[2017-10-30] MEDS: amLODIPine 5 MG TAB PO SCH (08:20)
--- NOTE | 2017-10-30 08:46 | ECHOF ---
Referral Reason:atrial fibrillation MEASUREMENTS -------- HEIGHT: 167.6 cm WEIGHT: 69.9 kg BP: 146/63 RVIDd: 3.1 cm (< 3.3) IVSd: 1.2 cm (0.6 - 1.1) LVIDd: 4.0 cm (3.9 - 5.3) LVPWd: 1.0 cm (0.6 - 1.1) IVSs: 1.5 cm LVIDs: 2.6 cm LVPWs: 1.5 cm LA Diam: 3.2 cm (2.7 - 3.8) LAESV Index (A-L): 19.32 ml/m Ao Diam: 2.9 cm (2.0 - 3.7) AV Cusp: 2.1 cm (1.5 - 2.6) MV EXCURSION: 14.577 mm (> 18.000) MV EF SLOPE: 46 mm/s (70 - 150) EPSS: 0.4 cm MV E Glen: 0.96 m/s MV DecT: 233 ms MV A Glen: 1.01 m/s MV E/A Ratio: 0.95 RAP: 5.00 mmHg RVSP: 41.00 mmHg FINDINGS -------- Sinus rhythm. This was a technically good study. The left ventricular size is normal. There is borderline concentric left ventricular hypertrophy. Overall left ventricular systolic function is normal with, an EF between 60 - 65 %. The right ventricle is normal in size. Normal LA size by volume 22+/-6 ml/m2. The right atrium is normal in size. There is mild aortic valve sclerosis. Moderate mitral annular calcification present. There is trace mitral regurgitation. Mild tricuspid regurgitation present. There is mild pulmonary hypertension. The right ventricular systolic pressure, as measured by Doppler, is 41.00mmHg. Trace/mild (physiologic) pulmonic regurgitation. The aortic root size is normal. Normal inferior vena cava with normal inspiratory collapse consistent with estimated right atrial pre ssure of 5 mmHg. There is no pericardial effusion. Pleural effusion noted CONCLUSIONS -------- 1. Sinus rhythm. 2. This was a technically good study. 3. The left ventricular size is normal. 4. There is borderline concentric left ventricular hypertrophy. 5. Overall left ventricular systolic function is normal with, an EF between 60 - 65 %. 6. The right ventricle is normal in size. 7. Normal LA size by volume 22+/-6 ml/m2. 8. The right atrium is normal in size. 9. There is mild aortic valve sclerosis. 10. Moderate mitral annular calcification present. 11. There is trace mitral regurgitation. 12. Mild tricuspid regurgitation present. 13. There is mild pulmonary hypertension. 14. The right ventricular systolic pressure, as measured by Doppler, is 41.00mmHg. 15. Trace/mild (physiologic) pulmonic regurgitation. 16. The aortic root size is normal. 17. Normal inferior vena cava with normal inspiratory collapse consistent with estimated right atrial pressure of 5 mmHg. 18. There is no pericardial effusion. 19. Pleural effusion noted RETAIL CUSTOMER SERVICE SPECIALIST: Sultana Monsivais RDCS
[2017-10-30] MEDS: CHOLECALCIFEROL 1,000 UNIT TAB PO SCH (11:24)
[2017-10-30] MEDS: FERROUS SULFATE 325 MG TAB PO SCH (11:24)
[2017-10-30] MEDS: CALCIUM CARB-VIT D 500MG-200UN 1 EACH TAB PO SCH (11:24)
[2017-10-30] MEDS: MULTIVITAMINS, THERA 1 EACH TAB PO SCH (11:24)
--- NOTE | 2017-10-30 12:05 | P.CONS ---
History of Present Illness - Reason for Consult Consult date: 10/29/17 On Imbruvica Requesting physician: Nael Pantoja - Chief Complaint SOB, Tachycardia - History of Present Illness This is a very nice lady who diagnosed with CLL in 2003,she was initially on observation untill February of 2008 when she had progressive leukocytosis and was treated with 6 cycles of CVP.She did well until ,when she had worsening lymphocytosis and was treated with fludarabine and Cytoxan for 3 cycles only,last treatment was in (had Rituxan the first cycle then was discontinued due to infusion reaction,however,she received the full dose of it after medicating her and reducing the infusion rate of rituxan)).She had a very good response to it,her CBC in were normal. She had repeat CBC in which revealed total white cells of 42K, normal hemoglobin and mild stable thrombocytopenia. 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 However,repeat CBC on 02/14/2013 revealed platelets counts of 73K and on 2012 were 41K. She started teanda/rituxan on 03/14/2013,we had to slow down the rituxan infusion due to infusion reaction which was managed by slowing down the infusion rate and steroids. No more infusion reaction with further rituxan therapy. She completed 6 cycles on 07/31/2013,tolerating them well and her platelets counts significantly improved. She started ibrutinib on 07/03/2014. On 10/28/17 Se presesnted to office for follow-up, She was seen by the DIGITAL MEDIA PLANNER in office. She was subsequently sent to the ED with tachycardia, increased respiratory effort, fevers, hypotension. Review of Systems A 14 point review of systems assessed and completed and all negative except HPI Constitutional: Reports fatigue, Reports weakness Past Medical History Past Medical History: Cancer, Hypertension, Osteoarthritis (OA) Additional Past Medical History / Comment(s): itp,cll, gastric bypass History of Any Multi-Drug Resistant Organisms: None Reported Past Surgical History: Appendectomy, Bariatric Surgery, Cholecystectomy, Hernia Repair, Tubal Ligation Past Anesthesia/Blood Transfusion Reactions: No Reported Reaction Past Psychological History: Depression Smoking Status: Former smoker Past Alcohol Use History: None Reported Past Drug Use History: None Reported - Past Family History Mother Family Medical History: Chest Pain / Angina, Myocardial Infarction ([place]) Father Family Medical History: Chest Pain / Angina, Coronary Artery Disease (CAD), Myocardial Infarction ([place]) Sister(s) Additional Family Medical History / Comment(s): kidney disease- hemodialysis Brother(s) Additional Family Medical History / Comment(s): Patient has one brother with coronary artery disease and Alzheimer's dementia. Medications and Allergies Home Medications Medication Instructions Recorded Confirmed Type Allopurinol [Allopurinol] 100 mg PO HS 07/20/14 10/28/17 History Calcium Carbonate/Vitamin D3 1 tab PO DAILY 07/20/14 10/28/17 History [Caltrate 600 Plus D3 Tablet] Cholecalciferol [Vitamin D3] 1,000 unit PO DAILY 07/20/14 10/28/17 History Ferrous Sulfate [Feosol] 325 mg PO DAILY 07/20/14 10/28/17 History LORazepam [Ativan] 0.5 mg PO BID PRN 07/20/14 10/28/17 History Lutein 10 mg PO DAILY 07/20/14 10/28/17 History Meclizine [Antivert] 25 mg PO TID PRN 07/20/14 10/28/17 History Multivitamins, Thera [Multivitamin] 1 tab PO DAILY 07/20/14 10/28/17 History Omeprazole [PriLOSEC] 20 mg PO DAILY 07/20/14 10/28/17 History amLODIPine BESYLATE [Amlodipine 5 mg PO DAILY 07/20/14 10/28/17 History Besylate] Citalopram Hydrobromide [CeleXA] 20 mg PO DAILY 10/28/17 10/28/17 History Imbruvica 140mg 420 mg PO DAILY 10/28/17 10/28/17 History Montelukast [Singulair] 10 mg PO HS 10/28/17 10/28/17 History Allergies Allergy/AdvReac Type Severity Reaction Status Date / Time codeine Allergy Confusion Verified 10/28/17 15:03 morphine Allergy Confusion Verified 10/28/17 15:03 Penicillins AdvReac Rash/Hives Verified 10/28/17 15:03 Physical Exam Vitals: Vital Signs Temp Pulse Pulse Resp BP BP Pulse Ox 10/29/17 08:00 95 20 146/63 96 10/29/17 04:00 98.1 F 77 18 113/62 95 10/29/17 00:00 97.7 F 84 18 127/62 94 L 10/28/17 20:00 98.1 F 88 18 101/51 95 10/28/17 19:13 97.4 F L 106 H 18 117/64 96 10/28/17 16:45 97.8 F 110 H 20 125/63 96 10/28/17 15:42 125 H 20 137/84 96 10/28/17 14:40 18 10/28/17 14:36 122 H 18 123/75 97 Intake and Output 10/28/17 10/29/17 10/29/17 22:59 06:59 14:59 Intake Total 424.667 700 480 Output Total 300 225 Balance 124.667 475 480 Intake: Amount of Fluid Infused ( 300 ml) Intake, IV Titration 4.667 700 Amount Diltiazem 125 mg In 4.667 Sodium Chloride 0.9% 100 ml @ 5 MG/HR 5 mls/hr IV .Q24H ONE Rx#:[id number] Sodium Chloride 0.9% 1, 700 000 ml @ 20 mls/hr IV . Q24H FRANCK Rx#:[id number] Oral 120 480 Output: Urine 300 225 Other: Voiding Method Toilet Toilet Toilet # Bowel Movements 1 Weight 68 kg 70.1 kg 70.1 kg Patient Weight 10/30/17 06:59 Weight 70.1 kg - Constitutional General appearance: cooperative, obese - EENT Eyes: EOMI, PERRLA, dentition normal, normal appearance ENT: hearing grossly normal, normal oropharynx - Neck Supple, Trachea midline, Cervical lymphadenopathy, small shotty nodes, also inguinal nodes on palpation Neck: lymphadenopathy (somewhat diffuse, b/l cervical chains, sc areas, R > L, largest 1 cm. ) Thyroid: bilateral: normal size - Respiratory Mild increased respiratory effort Respiratory: right: diminished - Cardiovascular Rhythm: regular Heart sounds: normal: S1, S2 leg Peripheral Edema: bilateral: Trace - Gastrointestinal General gastrointestinal: normal bowel sounds, soft - Integumentary Integumentary: normal, pale - Neurologic No Focal Defects, strength even Neurologic: CNII-XII intact (b/l shotty inguinal nodes) - Musculoskeletal Musculoskeletal: gait normal, generalized weakness - Psychiatric Psychiatric: A&O x's 3, appropriate affect, intact judgment & insight Results CBC & Chem 7: 10/30/17 05:24 10/30/17 05:24 Labs: Abnormal Lab Results - Last 24 Hours (Table) 10/28/17 10/28/17 10/28/17 Range/Units 14:30 14:30 14:30 WBC 14.1 H (3.8-10.6) k/uL RBC 3.19 L (3.80-5.40) m/uL Hgb 10.0 L (11.4-16.0) gm/dL Hct 32.0 L (34.0-46.0) % MCV 100.4 H (80.0-100.0) fL Lymphocytes # (Manual) 11.14 H (1.0-4.8) k/uL Potassium 3.2 L (3.5-5.1) mmol/L Chloride 111 H (98-107) mmol/L BUN 23 H (7-17) mg/dL Creatinine 1.13 H (0.52-1.04) mg/dL Glucose 119 H (74-99) mg/dL Total Bilirubin 2.4 H (0.2-1.3) mg/dL Total Creatine Kinase <20 L (30-135) U/L Total Protein 4.8 L (6.3-8.2) g/dL Albumin 2.9 L (3.5-5.0) g/dL 10/29/17 10/29/17 Range/Units 02:37 08:10 WBC (3.8-10.6) k/uL RBC (3.80-5.40) m/uL Hgb (11.4-16.0) gm/dL Hct (34.0-46.0) % MCV (80.0-100.0) fL Lymphocytes # (Manual) (1.0-4.8) k/uL Potassium 3.3 L 3.3 L (3.5-5.1) mmol/L Chloride 114 H (98-107) mmol/L BUN 23 H (7-17) mg/dL Creatinine 1.20 H (0.52-1.04) mg/dL Glucose (74-99) mg/dL Total Bilirubin (0.2-1.3) mg/dL Total Creatine Kinase (30-135) U/L Total Protein (6.3-8.2) g/dL Albumin (3.5-5.0) g/dL Comments: chest US report reviewed Chest x-ray: report reviewed Assessment and Plan (1) CLL (chronic lymphocytic leukemia) Narrative/Plan: 1. With evidence of new increased areas of lymphadenopathy on exam and large right pleural effusion there is concern for progressed disease. 2. Hold imbruvica at this time 3. If any concern for active infection IVIG can be given as her immune IGG levels are low 4. Await Cytology, Flow, LDH, ALbumin, And other pleural fluid studies to result. 5. She will follow-up once stable to discuss plan for continued therapy, depending on CLL status Current Visit: Yes Status: Acute Code(s): C91.90 - LYMPHOID LEUKEMIA, UNSPECIFIED NOT HAVING ACHIEVED REMISSION SNOMED Code(s): 01872918 (2) Pleural effusion Narrative/Plan: S/p thoracentesis of 2.2 L. This is concerning for CLL progression. This is likely the cause of her presenting symptoms, which have improved markedly with thoracentesis. - await results of pleural fluid studies - Flow cytometry will be added on the pleural fluid. Pathology lab was contacted - monitor for recurrence. Current Visit: Yes Status: Acute Code(s): J90 - PLEURAL EFFUSION, NOT ELSEWHERE CLASSIFIED SNOMED Code(s): 16615108 (3) Anemia Narrative/Plan: Etiology is not definite at this time. There is no evidence of bleeding. This could be due to CLL progression. I will check labs to r/o hemolysis. Hgb is in a safe range. Monitor Hhgb and transfuse if needed Current Visit: Yes Status: Acute Code(s): D64.9 - ANEMIA, UNSPECIFIED SNOMED Code(s): 643141235
--- NOTE | 2017-10-30 12:51 | P.PN ---
Subjective Progress Note Date: 10/30/17 Principal diagnosis: Right pleural effusion, paroxysmal atrial fibrillation with RVR This is a pleasant 76-year-old female with history of CLL, hypertension and history of thrombocytopenia a few years ago. She has been apparently dealing with some pneumonia over the last several weeks and receiving antibiotics and steroids as an outpatient. Was sent to the emergency department after presenting to her oncologist's office and noted to have hypotension and elevated heart rate. She was bolused with normal saline while at her oncologist 's office with mild improvement in blood pressure. Upon arrival, she was found to be in atrial fibrillation with rapid ventricular response. Laboratory values are reviewed and showed a hemoglobin of 10, platelet count of 172,000, creatinine 1.2 and NT proBNP of 874 and troponins negative 3. Chest x-ray showed moderate to large right-sided pleural effusion. She subsequently underwent ultrasound of the chest that showed a 7.9 cm right sided fluid pocket which was marked for thoracentesis. She will likely be undergoing thoracentesis today by pulmonary. She was initially initiated on a Cardizem drip which has been discontinued. She is currently on metoprolol 12.5mg BID. She is maintaining sinus rhythm. She underwent right thoracentesis yesterday with 2000 mL serosanguinous fluid drained. Echocardiogram with Doppler completed yesterday showed normal LV systolic function with ejection fraction between 60-65%, mild aortic valve sclerosis, moderate mitral annular calcification, mild tricuspid regurgitation and mild pulmonary hypertension. Upon examination, patient feels she is breathing quite a bit better. Her blood pressure is better. Laboratory values today show a hemoglobin of 8.4 and a platelet count of 139,000. Objective - Vital Signs Vital signs: Vital Signs Temp 98.8 F 10/30/17 08:00 Pulse 87 10/30/17 08:00 Resp 16 10/30/17 08:00 BP 134/63 10/30/17 08:00 Pulse Ox 90 L 10/30/17 08:00 Intake & Output 10/29/17 10/30/17 10/30/17 18:59 06:59 18:59 Intake Total 480 200 360 Balance 480 200 360 Weight 70.1 kg 70.5 kg Intake: Oral 480 200 360 Other: Voiding Method Toilet Toilet # Voids 1 3 - Exam PHYSICAL EXAMINATION: HEENT: Head is atraumatic, normocephalic. Pupils equal, round. Neck is supple. There is no elevated jugular venous pressure. HEART EXAMINATION: Heart sounds regular, S1 and S2 normal. No murmur or gallop heard. CHEST EXAMINATION: Lungs reveal diminished air entry to right lower lobe. No chest wall tenderness is noted on palpation or with deep breathing. ABDOMEN: Soft, nontender. Bowel sounds are heard. No organomegaly noted. EXTREMITIES: 2+ peripheral pulses with no evidence of peripheral edema and no calf tenderness noted. NEUROLOGIC patient is awake, alert and oriented x3. - Labs CBC & Chem 7: 10/30/17 05:24 10/30/17 05:24 Labs: Abnormal Lab Results - Last 24 Hours (Table) 10/30/17 10/30/17 Range/Units 05:24 05:24 WBC 15.7 H (3.8-10.6) k/uL RBC 2.70 L (3.80-5.40) m/uL Hgb 8.4 L D (11.4-16.0) gm/dL Hct 27.7 L (34.0-46.0) % MCV 102.8 H (80.0-100.0) fL MCHC 30.3 L (31.0-37.0) g/dL Plt Count 139 L (150-450) k/uL Chloride 114 H (98-107) mmol/L BUN 19 H (7-17) mg/dL Microbiology - Last 24 Hours (Table) 10/29/17 14:10 Gram Stain - Preliminary Pleural Fluid Body Fluid Culture - Preliminary 10/29/17 14:10 Acid Fast Bacilli Culture - Preliminary Pleural Fluid 10/29/17 14:10 Fungal Culture - Preliminary Pleural Fluid 10/29/17 14:10 Anaerobic Culture - Preliminary Pleural Fluid Assessment and Plan Assessment: #1 new onset atrial fibrillation with rapid ventricular response, paroxysmal, currently maintaining sinus rhythm #2 hypotension, improved #3 acute hypoxic respiratory failure secondary to moderate to large right pleural effusion #4 chronic lymphocytic leukemia currently receiving treatment with imbruvica #5 history of hypertension #6 Right pleural effusion, s/p thoracentesis with 2000 mL serosanguinous fluid #7 anemia with 1.6 g drop in hemoglobin since yesterday Plan: From engine dispatcher perspective, medications were reviewed and we will continue the same. We will defer anticoagulation to hematology due to patient's drop in hemoglobin and history of CLL as well as history of thrombocytopenia. We will follow the patient on an as-needed basis. Please do not hesitate to contact us with questions. ALUMNI SECRETARY note has been reviewed, I agree with a documented findings and plan of care. Patient was seen and examined.
--- NOTE | 2017-10-30 12:54 | P.PN ---
Subjective Progress Note Date: 10/30/17 Principal diagnosis: Large right-sided pleural effusion This is a very pleasant 76-year-old female patient who is with Dr. Yuen as her primary care physician. She has a history of hypertension, osteoarthritis, depression, previous smoking history. She also has a history of chronic lymphocytic leukemia and follows with Dr. Scherer for the same. She is on Imbruvica. She was seen yesterday at the oncology office and was found to be quite hypotensive. She was given a liter of fluid resuscitation without much improvement. She was quite fatigued and weak. She's also been having ongoing issues with shortness of breath. Her chest x-ray showed moderate to large right -sided pleural effusion with atelectasis. She was being set up for an outpatient thoracentesis along with IVIG treatment for next week however based on yesterday's finding she was admitted to the hospital. She was also found to be in atrial fibrillation with a rapid ventricular response which was new for the patient. She has since converted to sinus rhythm post-Cardizem drip. We are consulted for the large pleural effusion. An ultrasound of the chest shows a right-sided pocket of 7.9 cm. He is seen today in consultation on the active care unit. She is awake and alert in no acute distress. She is doing quite a bit better today as compared to yesterday. She is feeling stronger. She does have ongoing issues with shortness of breath on exertion. He is maintaining good O2 saturations in the 90s on 2 L/m per nasal cannula. Her blood pressure has recovered. She is hemodynamically stable. Afebrile. Results revealed WBC 14.1. Hemoglobin 10.0. Platelet count 172,000. Creatinine 1.20. ProBNP 874. Troponins negative 3. Reevaluated today on 10/30/2017, patient seems to be doing better, breathing a lot easier, the pleural effusion has a relatively high protein, this is more likely an exudative effusion. LDH is 139, remaining workup on the pleural effusion is pending. I did send the pleural effusion for cytology and flow cytometry. Objective - Vital Signs Vital signs: Vital Signs Temp 98.8 F 10/30/17 08:00 Pulse 87 10/30/17 08:00 Resp 16 10/30/17 08:00 BP 134/63 10/30/17 08:00 Pulse Ox 90 L 10/30/17 08:00 Intake & Output 10/29/17 10/30/17 10/30/17 18:59 06:59 18:59 Intake Total 480 200 360 Balance 480 200 360 Weight 70.1 kg 70.5 kg Intake: Oral 480 200 360 Other: Voiding Method Toilet Toilet # Voids 1 3 - Exam GENERAL EXAM: Pale, cachectic. Alert, fairly comfortable in no apparent distress. HEAD: Normocephalic. EYES: Normal reaction of pupils, equal size. NOSE: Clear with pink turbinates. THROAT: No erythema or exudates. NECK: No masses, no JVD. CHEST: No chest wall deformity. LUNGS: Good breath sound bilaterally no crackles or rhonchi or wheezes, CVS: S1 and S2 normal with no audible murmur, regular rhythm. ABDOMEN: No hepatosplenomegaly, normal bowel sounds, no guarding or rigidity. SPINE: Kyphoscoliosis SKIN: No rashes CENTRAL NERVOUS SYSTEM: No focal deficits, tone is normal in all 4 extremities. EXTREMITIES: There is no peripheral edema. No clubbing, no cyanosis. Peripheral pulses are intact. - Labs CBC & Chem 7: 10/30/17 05:24 10/30/17 05:24 Labs: Abnormal Lab Results - Last 24 Hours (Table) 10/30/17 10/30/17 Range/Units 05:24 05:24 WBC 15.7 H (3.8-10.6) k/uL RBC 2.70 L (3.80-5.40) m/uL Hgb 8.4 L D (11.4-16.0) gm/dL Hct 27.7 L (34.0-46.0) % MCV 102.8 H (80.0-100.0) fL MCHC 30.3 L (31.0-37.0) g/dL Plt Count 139 L (150-450) k/uL Chloride 114 H (98-107) mmol/L BUN 19 H (7-17) mg/dL Microbiology - Last 24 Hours (Table) 10/29/17 14:10 Gram Stain - Preliminary Pleural Fluid Body Fluid Culture - Preliminary 10/29/17 14:10 Acid Fast Bacilli Culture - Preliminary Pleural Fluid 10/29/17 14:10 Fungal Culture - Preliminary Pleural Fluid 10/29/17 14:10 Anaerobic Culture - Preliminary Pleural Fluid Assessment and Plan Assessment: #1 Hypotension secondary to dehydration. Recovered. #2 Acute hypoxic respiratory failure secondary to large right pleural effusion. #3 Chronic lymphocytic leukemia currently receiving Imbruvica. #4 new-onset atrial fibrillation, currently in normal sinus rhythm. #5 History of arthritis. #6 History of hypertension. Recommendation: Continue present treatment plan, await final report on the pleural effusion including flow cytometry, we'll continue to follow. Time with Patient: Less than 30
[2017-10-30] MEDS: SODIUM CHLORIDE 0.9% 1,000 ML IV SCH (15:28)
--- NOTE | 2017-10-30 17:17 | P.PN ---
Subjective This is a 76-year-old female patient of Dr. Yuen and Dr. Garcia with past medical history significant for CLL, hypertension, osteoarthritis, ITP. A Chin gives history that she has been treated for pneumonia about [address] Yuen and placed on antibiotic. She underwent a CAT scan at [facility] and was then placed on another course of antibiotics and also steroids. During this time she also was started on water pills possibly by Dr. Garcia. She was known to have a right-sided pleural effusion. Patient was at Dr. Garcia's office yesterday and her blood pressure was low. She received IV fluids the blood pressure continued to be low and she was sent to [facility] emergency center for evaluation. Patient states that she did have a cough that was nonproductive but this is resolved. She does complain of weakness but no lightheadedness or dizziness. She denies any dysuria. She states that she cannot get enough air and she has been very short of breath. She had a chest x-ray that shows moderate to large right-sided pleural effusion. There could be underlying adjacent atelectasis and/or consolidation. White count was 14.1, hemoglobin 10, platelet count 172, potassium 3.2, BUN 23 and creatinine 1.13. Troponin was 0.016. Total bilirubin 2.4 and liver enzymes within normal limits. ProBNP 874. Patient was found to be in atrial fibrillation with RVR running in the 120s which is new onset. Daughter states the patient has had a 30 pound weight loss since August. She has not eating well and in general not feeling good. Ensure has been ordered. Patient is also scheduled for IVIG next week which she receives about 2 times per year.\ 10/30: Patient underwent large-volume thoracenteses of over 2 L on the right lung on 10/29/2017, patient has improved dyspnea, dyspnea improving, patient denies any chest discomfort or palpitations. Oxygen saturations improving, Pleural effusion sent for cytology and cultures, exudative effusion is suspected anticoagulation for A. fib is still on hold, awaiting final plans for possible repeat thoracentesis in the future Objective - Vital Signs Vital signs: Vital Signs Temp 98.7 F 10/30/17 16:00 Pulse 88 10/30/17 16:00 Resp 16 10/30/17 16:00 BP 120/58 10/30/17 16:00 Pulse Ox 91 L 10/30/17 16:00 Intake & Output 10/29/17 10/30/17 10/30/17 18:59 06:59 18:59 Intake Total 480 200 720 Balance 480 200 720 Weight 70.1 kg 70.5 kg Intake: Oral 480 200 720 Other: Voiding Method Toilet Toilet # Voids 1 3 3 - Constitutional General appearance: Present: average body habitus, cooperative, no acute distress - EENT Eyes: Present: EOMI, PERRLA, dentition normal, normal appearance ENT: Present: NA/AT, normal oropharynx - Neck Neck: Present: normal ROM. Absent: lymphadenopathy, other, rigidity, stridor, thyromegaly - Respiratory Respiratory: bilateral: CTA, diminished, negative: dullness, rales, rhonchi, wheezing, prolonged expiration - Cardiovascular Rhythm: irregularly irregular Heart sounds: normal: S1, S2 Abnormal Heart Sounds: Absent: systolic murmur, diastolic murmur, rub, S3 Gallop , S4 Gallop, click, other - Gastrointestinal General gastrointestinal: Present: normal bowel sounds, soft - Integumentary Integumentary: Present: normal, normal turgor - Neurologic Neurologic: Present: CNII-XII intact - Musculoskeletal Musculoskeletal: Present: gait normal, strength equal bilaterally - Psychiatric Psychiatric: Present: A&O x's 3, appropriate affect, intact judgment & insight - Labs CBC & Chem 7: 10/30/17 05:24 10/30/17 05:24 Labs: Abnormal Lab Results - Last 24 Hours (Table) 10/30/17 10/30/17 Range/Units 05:24 05:24 WBC 15.7 H (3.8-10.6) k/uL RBC 2.70 L (3.80-5.40) m/uL Hgb 8.4 L D (11.4-16.0) gm/dL Hct 27.7 L (34.0-46.0) % MCV 102.8 H (80.0-100.0) fL MCHC 30.3 L (31.0-37.0) g/dL Plt Count 139 L (150-450) k/uL Chloride 114 H (98-107) mmol/L BUN 19 H (7-17) mg/dL Microbiology - Last 24 Hours (Table) 10/29/17 14:10 Gram Stain - Preliminary Pleural Fluid Body Fluid Culture - Preliminary 10/29/17 14:10 Acid Fast Bacilli Culture - Preliminary Pleural Fluid 10/29/17 14:10 Fungal Culture - Preliminary Pleural Fluid 10/29/17 14:10 Anaerobic Culture - Preliminary Pleural Fluid Laboratory Results - last 24 hr 10/29/17 10/30/17 10/30/17 14:10 05:24 05:24 WBC 15.7 H RBC 2.70 L Hgb 8.4 L D Hct 27.7 L MCV 102.8 H MCH 31.1 MCHC 30.3 L RDW 14.7 Plt Count 139 L Hypochromasia Marked Poikilocytosis Slight Macrocytosis Slight Sodium 142 Potassium 3.8 Chloride 114 H Carbon Dioxide 25 Anion Gap 3 BUN 19 H Creatinine 1.00 Est GFR (MDRD) Af Amer >60 Est GFR (MDRD) Non-Af 54 Glucose 80 Calcium 8.5 Body Fluid Glucose Source Pleural Fluid Fluid Glucose 102 Body Fluid Protein Source Pleural Fluid Fluid Total Protein 2800 Body Fluid LDH Source Pleural Fluid Fluid LDH 139 Assessment and Plan Plan: 1. Hypotension secondary to a combination of dehydration and atrial fibrillation with RVR., Improved 2. New onset atrial fibrillation with rapid ventricular response, converted to sinus rhythm. Cardiology consult is appreciated. IV Cardizem discontinued. Patient started on Lopressor. Anticoagulation on hold, oncology to decide secondary to recent thrombocytopenia, awaiting formal recommendation from pulmonary for stability of pleural effusion, patient might require a repeat thoracentesis and T2 monitor 3. Acute hypoxic respiratory failure secondary to a large right-sided pleural effusion. Consult with Dr. Chavez. Patient underwent ultrasound for right- sided thoracentesis. Continue oxygen therapy. Thoracentesis performed 2017, large-volume at least over 2 L, pending cytology and culture, exudative pattern suspected 4. Chronic lymphocytic leukemia under the care of Dr Garcia. Patient is on Imbruvica. 5. Gastroesophageal reflux disease and GI prophylaxis. Continue omeprazole. 6. Hypertension. Continue amlodipine 5 mg daily. 7. Anemia of chronic disease. Continue ferrous sulfate. 8. Gout. Continue allopurinol. 9. General anxiety disorder and recurrent depression. Continue Ativan as needed and Celexa 20 mg daily. 10. Chemotherapy induced Bicytopenia megalocytosis, oncology following 11. Acute kidney failure with CK D stage 2-3, creatinine is improving with IV hydration 10. DVT prophylaxis. KAMERON estrada and DEANNEs. Patient will be admitted to the hospital for a minimum of 2 night stay. Discharge plan: Return home, patient may benefit from home care.
[2017-10-30] MEDS: MONTELUKAST 10 MG TAB PO SCH (21:12)
[2017-10-30] MEDS: ALLOPURINOL 100 MG TAB PO SCH (21:12)
[2017-10-30] MEDS: LORazepam 0.5 MG TAB PO PRN (21:12)
[2017-10-31] MEDS: PANTOPRAZOLE 40 MG TABLET PO SCH (06:10)
[2017-10-31 06:22] LABS: HCT 28.5 % (34.0-46.0); HGB 8.6 gm/dL (11.4-16.0); Hypochromasia Marked; MCH 31.9 pg (25.0-35.0); MCHC 30.3 g/dL (31.0-37.0); MCV 105.2 fL (80.0-100.0); Macrocytosis Moderate; Mean Platelet Volume 8.7; Platelet Count 128 k/uL (150-450); RBC 2.71 m/uL (3.80-5.40); RDW 14.6 % (11.5-15.5); Reticulocyte % 2.5 % (0.5-2.0); WBC 16.2 k/uL (3.8-10.6)
[2017-10-31 06:32] LABS: ALT 20 U/L (9-52); AST 12 U/L (14-36); Albumin 2.2 g/dL (3.5-5.0); Alkaline Phosphatase 59 U/L (38-126); Anion Gap 4 mmol/L; Blood Urea Nitrogen 14 mg/dL (7-17); Calcium 8.3 mg/dL (8.4-10.2); Carbon Dioxide 26 mmol/L (22-30); Chloride 114 mmol/L (98-107); Glucose 73 mg/dL (74-99); Potassium 3.7 mmol/L (3.5-5.1); Sodium 144 mmol/L (137-145); Total Bilirubin 1.8 mg/dL (0.2-1.3)
--- NOTE | 2017-10-31 07:23 | XR ---
EXAMINATION TYPE: XR chest 1V portable DATE OF EXAM: 10/31/2017 HISTORY: pleural effusion. REFERENCE: Previous study dated 10/29/2017. FINDINGS: There is a worsening right-sided effusion. There is right basilar airspace disease. Right u pper lobe aeration has improved. The left lung remains clear. Heart size is obscured. IMPRESSION: 1. WORSENING RIGHT-SIDED EFFUSION. 2. RIGHT BASILAR AIRSPACE DISEASE.
[2017-10-31] MEDS: CITALOPRAM HYDROBROMIDE 20 MG TAB PO SCH (08:03)
[2017-10-31] MEDS: METOPROLOL TARTRATE 12.5 MG TAB PO SCH (08:03)
[2017-10-31] MEDS: IMBRUVICA PO SCH (08:03)
[2017-10-31] MEDS: amLODIPine 5 MG TAB PO SCH (08:03)
[2017-10-31] MEDS ORDERED: METOPROLOL TARTRATE 12.5 MG TAB PO ONE (10:15)
[2017-10-31] MEDS: CHOLECALCIFEROL 1,000 UNIT TAB PO SCH (12:05)
[2017-10-31] MEDS: FERROUS SULFATE 325 MG TAB PO SCH (12:05)
[2017-10-31] MEDS: MULTIVITAMINS, THERA 1 EACH TAB PO SCH (12:05)
[2017-10-31] MEDS: CALCIUM CARB-VIT D 500MG-200UN 1 EACH TAB PO SCH (12:05)
--- NOTE | 2017-10-31 12:23 | P.PN ---
Subjective Progress Note Date: 10/31/17 Principal diagnosis: Large right-sided pleural effusion This is a very pleasant 76-year-old female patient who is with Dr. Yuen as her primary care physician. She has a history of hypertension, osteoarthritis, depression, previous smoking history. She also has a history of chronic lymphocytic leukemia and follows with Dr. Scherer for the same. She is on Imbruvica. She was seen yesterday at the oncology office and was found to be quite hypotensive. She was given a liter of fluid resuscitation without much improvement. She was quite fatigued and weak. She's also been having ongoing issues with shortness of breath. Her chest x-ray showed moderate to large right -sided pleural effusion with atelectasis. She was being set up for an outpatient thoracentesis along with IVIG treatment for next week however based on yesterday's finding she was admitted to the hospital. She was also found to be in atrial fibrillation with a rapid ventricular response which was new for the patient. She has since converted to sinus rhythm post-Cardizem drip. We are consulted for the large pleural effusion. An ultrasound of the chest shows a right-sided pocket of 7.9 cm. He is seen today in consultation on the active care unit. She is awake and alert in no acute distress. She is doing quite a bit better today as compared to yesterday. She is feeling stronger. She does have ongoing issues with shortness of breath on exertion. He is maintaining good O2 saturations in the 90s on 2 L/m per nasal cannula. Her blood pressure has recovered. She is hemodynamically stable. Afebrile. Results revealed WBC 14.1. Hemoglobin 10.0. Platelet count 172,000. Creatinine 1.20. ProBNP 874. Troponins negative 3. Reevaluated today on 10/30/2017, patient seems to be doing better, breathing a lot easier, the pleural effusion has a relatively high protein, this is more likely an exudative effusion. LDH is 139, remaining workup on the pleural effusion is pending. I did send the pleural effusion for cytology and flow cytometry. Reevaluated today on 10/31/2017, patient feels generally weak and tired, however not short of breath, not having any chest pain. Chest x-ray is showing reaccumulation of right pleural effusion, cardiology is addressing her intermittent episodes of atrial fibrillation with RVR. The cytology on the fluid is still pending, patient may require another thoracentesis, however based on the cytology, the patient may actually require a Pleurx catheter placement. Hence we'll wait until the cytology report comes back on this patient before any decision will be made regarding another thoracentesis or Pleurx catheter placement. Again the patient is not in any form of respiratory distress at this point, and no casas to repeat thoracentesis at this point yet. Objective - Vital Signs Vital signs: Vital Signs Temp 98.5 F 10/31/17 08:00 Pulse 125 H 10/31/17 08:00 Resp 16 10/31/17 08:00 BP 125/81 10/31/17 08:00 Pulse Ox 93 L 10/31/17 08:00 Intake & Output 10/30/17 10/31/17 10/31/17 18:59 06:59 18:59 Intake Total 720 240 Balance 720 240 Weight 68.5 kg Intake: Oral 720 240 Other: Voiding Method Toilet # Voids 3 1 2 # Bowel Movements 1 - Exam GENERAL EXAM: Pale, cachectic. Alert, fairly comfortable in no apparent distress. HEAD: Normocephalic. EYES: Normal reaction of pupils, equal size. NOSE: Clear with pink turbinates. THROAT: No erythema or exudates. NECK: No masses, no JVD. CHEST: No chest wall deformity. LUNGS: Diminished breath sounds and dullness at the right base, left side is relatively clear. CVS: Irregular irregular rhythm, S1 and S2 normal with no audible murmur, regular rhythm. ABDOMEN: No hepatosplenomegaly, normal bowel sounds, no guarding or rigidity. SPINE: Kyphoscoliosis SKIN: No rashes CENTRAL NERVOUS SYSTEM: No focal deficits, tone is normal in all 4 extremities. EXTREMITIES: There is no peripheral edema. No clubbing, no cyanosis. Peripheral pulses are intact. - Labs CBC & Chem 7: 10/31/17 05:18 10/31/17 05:18 Labs: Abnormal Lab Results - Last 24 Hours (Table) 10/31/17 10/31/17 Range/Units 05:18 05:18 WBC 16.2 H (3.8-10.6) k/uL RBC 2.71 L (3.80-5.40) m/uL Hgb 8.6 L (11.4-16.0) gm/dL Hct 28.5 L (34.0-46.0) % MCV 105.2 H (80.0-100.0) fL MCHC 30.3 L (31.0-37.0) g/dL Plt Count 128 L (150-450) k/uL Retic Count 2.5 H (0.5-2.0) % Chloride 114 H (98-107) mmol/L Glucose 73 L (74-99) mg/dL Calcium 8.3 L (8.4-10.2) mg/dL Total Bilirubin 1.8 H (0.2-1.3) mg/dL AST 12 L (14-36) U/L Total Protein 4.0 L (6.3-8.2) g/dL Albumin 2.2 L (3.5-5.0) g/dL Microbiology - Last 24 Hours (Table) 10/29/17 14:10 Acid Fast Bacilli Smear - Final Pleural Fluid Acid Fast Bacilli Culture - Preliminary 10/29/17 14:10 Gram Stain - Preliminary Pleural Fluid Body Fluid Culture - Preliminary Assessment and Plan Assessment: #1 Hypotension secondary to dehydration. Recovered. #2 Acute hypoxic respiratory failure secondary to large right pleural effusion. #3 Chronic lymphocytic leukemia currently receiving Imbruvica. #4 new-onset atrial fibrillation, currently in normal sinus rhythm. #5 History of arthritis. #6 History of hypertension. Recommendation: Continue present treatment plan, await final report on the pleural effusion including flow cytometry, may need to repeat thoracentesis or possibly Pleurx catheter placement in the next 24-48 hours. Time with Patient: Less than 30
--- NOTE | 2017-10-31 15:03 | PN ---
PROGRESS NOTE This lady has a right-sided pleural effusion and atrial fibrillation, paroxysmal in nature. She was in a sinus rhythm earlier today, but she went into atrial fibrillation with moderate rate. I am recommending rate control, but defer anticoagulation since there is reaccumulation of pleural fluid and she may require further additional thoracentesis. Vital signs are stable S1-S2 heard normally. Breath sounds are diminished on the right side. Abdomen and lower exam unchanged. Continue rate control. Avoid anticoagulation. Await input from pulmonology for possible repeat thoracentesis. MMODL / IJN: [id number] /
[2017-10-31] MEDS: METOPROLOL TARTRATE 25 MG TAB PO SCH ×2 (16:06→21:16)
[2017-10-31] MEDS: SODIUM CHLORIDE 0.9% 1,000 ML IV SCH (16:07)
--- NOTE | 2017-10-31 19:31 | P.PN ---
Subjective This is a 76-year-old female patient of Dr. Yuen and Dr. Garcia with past medical history significant for CLL, hypertension, osteoarthritis, ITP. A Chin gives history that she has been treated for pneumonia about [address] Yuen and placed on antibiotic. She underwent a CAT scan at [facility] and was then placed on another course of antibiotics and also steroids. During this time she also was started on water pills possibly by Dr. Garcia. She was known to have a right-sided pleural effusion. Patient was at Dr. Garcia's office yesterday and her blood pressure was low. She received IV fluids the blood pressure continued to be low and she was sent to [facility] emergency center for evaluation. Patient states that she did have a cough that was nonproductive but this is resolved. She does complain of weakness but no lightheadedness or dizziness. She denies any dysuria. She states that she cannot get enough air and she has been very short of breath. She had a chest x-ray that shows moderate to large right-sided pleural effusion. There could be underlying adjacent atelectasis and/or consolidation. White count was 14.1, hemoglobin 10, platelet count 172, potassium 3.2, BUN 23 and creatinine 1.13. Troponin was 0.016. Total bilirubin 2.4 and liver enzymes within normal limits. ProBNP 874. Patient was found to be in atrial fibrillation with RVR running in the 120s which is new onset. Daughter states the patient has had a 30 pound weight loss since August. She has not eating well and in general not feeling good. Ensure has been ordered. Patient is also scheduled for IVIG next week which she receives about 2 times per year.\ 10/30: Patient underwent large-volume thoracenteses of over 2 L on the right lung on 10/29/2017, patient has improved dyspnea, dyspnea improving, patient denies any chest discomfort or palpitations. Oxygen saturations improving, Pleural effusion sent for cytology and cultures, exudative effusion is suspected anticoagulation for A. fib is still on hold, awaiting final plans for possible repeat thoracentesis in the future 10/31: Patient is clinically better without any significant shortness of breath, patient did not have any PND last night,events, no hypoxemia, patient's chest x- ray seems to be worse compared to previous, pulmonary is following closely, awaiting final cytologies, patient might need repeat thoracenteses vs pleurx catheter placement Objective - Vital Signs Vital signs: Vital Signs Temp 98.5 F 10/31/17 16:00 Pulse 84 10/31/17 16:00 Resp 16 10/31/17 16:00 BP 114/70 10/31/17 16:00 Pulse Ox 84 L 10/31/17 16:00 Intake & Output 10/31/17 10/31/17 11/01/17 06:59 18:59 06:59 Intake Total 600 Balance 600 Weight 68.5 kg Intake: Oral 600 Other: Voiding Method Toilet # Voids 1 3 # Bowel Movements 1 - Constitutional General appearance: Present: average body habitus, cooperative, no acute distress. Absent: disheveled, mild distress, morbidly obese, obese, severe distress, thin - EENT Eyes: Present: anicteric sclerae, EOMI, PERRLA, dentition normal, normal appearance. Absent: abnormal pupil, disc margins sharp, edentulous, fundus normal, photophobia, poor dentition, ptosis, scleral icterus ENT: Present: NA/AT, normal oropharynx - Neck Neck: Present: normal ROM - Respiratory Respiratory: right: diminished, dullness, left: CTA, negative: rales, rhonchi, wheezing, prolonged expiration, prolonged inspiration - Cardiovascular Rhythm: regular Heart sounds: normal: S1, S2 - Gastrointestinal General gastrointestinal: Present: normal bowel sounds, soft - Integumentary Integumentary: Present: normal, normal turgor - Neurologic Neurologic: Present: CNII-XII intact - Psychiatric Psychiatric: Present: A&O x's 3, appropriate affect, intact judgment & insight - Labs CBC & Chem 7: 10/31/17 05:18 10/31/17 05:18 Labs: Abnormal Lab Results - Last 24 Hours (Table) 10/31/17 10/31/17 10/31/17 Range/Units 05:18 05:18 05:18 WBC 16.2 H (3.8-10.6) k/uL RBC 2.71 L (3.80-5.40) m/uL Hgb 8.6 L (11.4-16.0) gm/dL Hct 28.5 L (34.0-46.0) % MCV 105.2 H (80.0-100.0) fL MCHC 30.3 L (31.0-37.0) g/dL Plt Count 128 L (150-450) k/uL Retic Count 2.5 H (0.5-2.0) % Haptoglobin <8.0 L (31.2-198.0) mg/dL Chloride 114 H (98-107) mmol/L Glucose 73 L (74-99) mg/dL Calcium 8.3 L (8.4-10.2) mg/dL Total Bilirubin 1.8 H (0.2-1.3) mg/dL AST 12 L (14-36) U/L Total Protein 4.0 L (6.3-8.2) g/dL Albumin 2.2 L (3.5-5.0) g/dL Microbiology - Last 24 Hours (Table) 10/29/17 14:10 Gram Stain - Preliminary Pleural Fluid Body Fluid Culture - Preliminary 10/29/17 14:10 Acid Fast Bacilli Smear - Final Pleural Fluid Acid Fast Bacilli Culture - Preliminary Assessment and Plan Plan: 1. Hypotension secondary to a combination of dehydration and atrial fibrillation with RVR., Improved 2. New onset atrial fibrillation with rapid ventricular response, converted to sinus rhythm. Cardiology consult is appreciated. IV Cardizem discontinued. Patient started on Lopressor. Anticoagulation on hold for possible future thoracentesis, oncology to decide secondary to recent thrombocytopenia, awaiting formal recommendation from pulmonary for stability of pleural effusion , patient might require a repeat thoracentesis monitor 3. Acute hypoxic respiratory failure secondary to a large right-sided pleural effusion. Consult with Dr. Chavez. Patient underwent ultrasound for right- sided thoracentesis. Continue oxygen therapy. Thoracentesis performed 2017, large-volume at least over 2 L, pending cytology and culture, exudative pattern suspected 4. Chronic lymphocytic leukemia under the care of Dr Garcia. Patient is on Imbruvica. 5. Gastroesophageal reflux disease and GI prophylaxis. Continue omeprazole. 6. Hypertension. Continue amlodipine 5 mg daily. 7. Anemia of chronic disease. Continue ferrous sulfate. 8. Gout. Continue allopurinol. 9. General anxiety disorder and recurrent depression. Continue Ativan as needed and Celexa 20 mg daily. 10. Chemotherapy induced Bicytopenia megalocytosis, oncology following 11. Acute kidney failure with CK D stage 2-3, creatinine is improving with IV hydration 10. DVT prophylaxis. KAMERON estrada and DEANNEs. Patient will be admitted to the hospital for a minimum of 2 night stay. Discharge plan: Return home, patient may benefit from home care.
[2017-10-31] MEDS: ALLOPURINOL 100 MG TAB PO SCH (20:07)
[2017-10-31] MEDS: MONTELUKAST 10 MG TAB PO SCH (20:07)
[2017-10-31] MEDS: LORazepam 0.5 MG TAB PO PRN (21:27)
[2017-11-01 04:55] LABS: HCT 27.4 % (34.0-46.0); HGB 8.3 gm/dL (11.4-16.0); Hypochromasia Moderate; MCH 31.3 pg (25.0-35.0); MCHC 30.2 g/dL (31.0-37.0); MCV 103.7 fL (80.0-100.0); Macrocytosis Moderate; Mean Platelet Volume 9.1; Platelet Count 120 k/uL (150-450); Poikilocytosis Slight; RBC 2.64 m/uL (3.80-5.40); RDW 15.4 % (11.5-15.5); WBC 13.5 k/uL (3.8-10.6)
[2017-11-01 05:06] LABS: Anion Gap 3 mmol/L; Blood Urea Nitrogen 15 mg/dL (7-17); Calcium 8.6 mg/dL (8.4-10.2); Carbon Dioxide 25 mmol/L (22-30); Chloride 115 mmol/L (98-107); Glucose 76 mg/dL (74-99); Potassium 3.6 mmol/L (3.5-5.1); Sodium 143 mmol/L (137-145)
[2017-11-01 06:07] LABS: Eosinophils # (M) 0.14 k/uL (0-0.7); Lymphocytes # (M) 12.29 k/uL (1.0-4.8); Monocytes # (M) 0.54 k/uL (0-1.0); Neutrophils # (M) 0.68 k/uL (1.3-7.7); Neutrophils % (M) 5 %; Nucleated Red Blood Cells 0 /100 WBC (0-0); Total Cells Counted 200
[2017-11-01] MEDS ORDERED: methylPREDNISolone SOD SUCCI 125 MG/2 ML VIAL IV STA (06:23)
[2017-11-01] MEDS: PANTOPRAZOLE 40 MG TABLET PO SCH (06:40)
[2017-11-01] MEDS: diphenhydrAMINE 25 MG CAP PO PRN ×2 (07:34→22:28)
[2017-11-01] MEDS: METOPROLOL TARTRATE 25 MG TAB PO SCH ×3 (08:14→20:15)
[2017-11-01] MEDS: CITALOPRAM HYDROBROMIDE 20 MG TAB PO SCH (08:14)
[2017-11-01] MEDS: amLODIPine 5 MG TAB PO SCH (08:14)
[2017-11-01] MEDS: IMBRUVICA PO SCH (08:15)
[2017-11-01] MEDS: ACETAMINOPHEN TAB 500 MG TAB PO PRN (09:59)
[2017-11-01] MEDS: CALCIUM CARB-VIT D 500MG-200UN 1 EACH TAB PO SCH (11:37)
[2017-11-01] MEDS: CHOLECALCIFEROL 1,000 UNIT TAB PO SCH (11:37)
[2017-11-01] MEDS: MULTIVITAMINS, THERA 1 EACH TAB PO SCH (12:00)
[2017-11-01] MEDS: FERROUS SULFATE 325 MG TAB PO SCH (12:00)
--- NOTE | 2017-11-01 14:22 | XR ---
EXAMINATION TYPE: XR chest 1V DATE OF EXAM: 11/01/2017 COMPARISON: 10/31/2017 HISTORY: Pleural effusion TECHNIQUE: Single frontal view of the chest is obtained. FINDINGS: There is a similar appearing moderate to large right pleural effusion with improved aerati on of the right upper lung. Left lung remains clear. Cardiac silhouette is within normal limits. Mild acromioclavicular arthropathy is noted. IMPRESSION: Stable size of the moderate to large right pleural effusion with improved aeration of th e right upper lung.
--- NOTE | 2017-11-01 14:59 | P.PN ---
Subjective Progress Note Date: 11/01/17 Principal diagnosis: Large right-sided pleural effusion This is a very pleasant 76-year-old female patient who is with Dr. Yuen as her primary care physician. She has a history of hypertension, osteoarthritis, depression, previous smoking history. She also has a history of chronic lymphocytic leukemia and follows with Dr. Scherer for the same. She is on Imbruvica. She was seen yesterday at the oncology office and was found to be quite hypotensive. She was given a liter of fluid resuscitation without much improvement. She was quite fatigued and weak. She's also been having ongoing issues with shortness of breath. Her chest x-ray showed moderate to large right -sided pleural effusion with atelectasis. She was being set up for an outpatient thoracentesis along with IVIG treatment for next week however based on yesterday's finding she was admitted to the hospital. She was also found to be in atrial fibrillation with a rapid ventricular response which was new for the patient. She has since converted to sinus rhythm post-Cardizem drip. We are consulted for the large pleural effusion. An ultrasound of the chest shows a right-sided pocket of 7.9 cm. He is seen today in consultation on the active care unit. She is awake and alert in no acute distress. She is doing quite a bit better today as compared to yesterday. She is feeling stronger. She does have ongoing issues with shortness of breath on exertion. He is maintaining good O2 saturations in the 90s on 2 L/m per nasal cannula. Her blood pressure has recovered. She is hemodynamically stable. Afebrile. Results revealed WBC 14.1. Hemoglobin 10.0. Platelet count 172,000. Creatinine 1.20. ProBNP 874. Troponins negative 3. Reevaluated today on 10/30/2017, patient seems to be doing better, breathing a lot easier, the pleural effusion has a relatively high protein, this is more likely an exudative effusion. LDH is 139, remaining workup on the pleural effusion is pending. I did send the pleural effusion for cytology and flow cytometry. Reevaluated today on 10/31/2017, patient feels generally weak and tired, however not short of breath, not having any chest pain. Chest x-ray is showing reaccumulation of right pleural effusion, cardiology is addressing her intermittent episodes of atrial fibrillation with RVR. The cytology on the fluid is still pending, patient may require another thoracentesis, however based on the cytology, the patient may actually require a Pleurx catheter placement. Hence we'll wait until the cytology report comes back on this patient before any decision will be made regarding another thoracentesis or Pleurx catheter placement. Again the patient is not in any form of respiratory distress at this point, and no casas to repeat thoracentesis at this point yet. On 11/01/2017 patient seen in follow-up. She states her breathing is easier, denies any chest pain. She does feel that the fluid on the right is reaccumulating, but states the dyspnea, and the pressure not as severe as it was on presentation, she felt a rocklike sensation sitting on the chest. Today' s chest x-ray shows moderate to large right pleural effusion. Pleural fluid cytology from 10/29/2017 is still pending. She had 2000 mL of pleural fluid removed from the right pleural effusion on 10/29/[address] Roger. Pleural fluid analysis showed LDH of 139, fluid total protein was 2800, and the fluid is transudative. Pleural fluid cultures are still pending. She remains hemodynamically stable, she is on room air, with O2 sat at 92-93%. There are absent breath sounds over right lower lobe, clear breath sounds on the left. She remains afebrile. He was discussed with her that fluid cytology results will help determine course of further treatment. It is likely that she will need a Pleurx catheter view of rapid reaccumulation of right pleural fluid. Objective - Vital Signs Vital signs: Vital Signs Temp 98.2 F 11/01/17 12:00 Pulse 64 11/01/17 12:00 Resp 18 11/01/17 12:00 BP 131/62 11/01/17 12:00 Pulse Ox 92 L 11/01/17 12:00 Intake & Output 10/31/17 11/01/17 11/01/17 18:59 06:59 18:59 Intake Total 600 200 Balance 600 200 Weight 68.2 kg Intake: Oral 600 200 Other: Voiding Method Toilet Toilet # Voids 3 2 # Bowel Movements 1 - Exam GENERAL EXAM: Pale, cachectic. Alert, fairly comfortable in no apparent distress. HEAD: Normocephalic. EYES: Normal reaction of pupils, equal size. NOSE: Clear with pink turbinates. THROAT: No erythema or exudates. NECK: No masses, no JVD. CHEST: No chest wall deformity. LUNGS: Absent breath sounds and dullness at the right base, left side is relatively clear. CVS: Irregular irregular rhythm, S1 and S2 normal with no audible murmur, regular rhythm. ABDOMEN: No hepatosplenomegaly, normal bowel sounds, no guarding or rigidity. SPINE: Kyphoscoliosis SKIN: No rashes CENTRAL NERVOUS SYSTEM: No focal deficits, tone is normal in all 4 extremities. EXTREMITIES: There is no peripheral edema. No clubbing, no cyanosis. Peripheral pulses are intact. - Labs CBC & Chem 7: 11/01/17 04:14 11/01/17 04:14 Labs: Abnormal Lab Results - Last 24 Hours (Table) 10/31/17 11/01/17 11/01/17 Range/Units 05:18 04:14 04:14 WBC 13.5 H (3.8-10.6) k/uL RBC 2.64 L (3.80-5.40) m/uL Hgb 8.3 L (11.4-16.0) gm/dL Hct 27.4 L (34.0-46.0) % MCV 103.7 H (80.0-100.0) fL MCHC 30.2 L (31.0-37.0) g/dL Plt Count 120 L (150-450) k/uL Neutrophils # (Manual) 0.68 L (1.3-7.7) k/uL Lymphocytes # (Manual) 12.29 H (1.0-4.8) k/uL Haptoglobin <8.0 L (31.2-198.0) mg/dL Chloride 115 H (98-107) mmol/L Microbiology - Last 24 Hours (Table) 10/29/17 14:10 Anaerobic Culture - Preliminary Pleural Fluid 10/29/17 14:10 Gram Stain - Preliminary Pleural Fluid Body Fluid Culture - Preliminary Assessment and Plan Plan: Assessment: #1 Hypotension secondary to dehydration. Recovered. #2 Acute hypoxic respiratory failure secondary to large right pleural effusion. #3 Chronic lymphocytic leukemia currently receiving Imbruvica. #4 new-onset atrial fibrillation, currently in normal sinus rhythm. #5 History of arthritis. #6 History of hypertension. Recommendation: Chest x-ray shows reaccumulation of the right pleural effusion fluid. Patient is currently stable, remains on room air, denies any acute dyspnea, she does feel however that the fluid is reaccumulating on the right. Will await the results of the pleural fluid cytology, fluid cultures are pending, the fluid is transudate of in nature. There is a high possibility that Pleurx catheter will be needed in view of rapid reaccumulation of the right pleural fluid. This was discussed with the patient and her daughter, and they are in agreement with the plan. I performed a history & physical examination of the patient and discussed their management with my nurse practitioner, Yue Rodriguez. I reviewed the nurse practitioner's note and agree with the documented findings and plan of care. Lung sounds are positive for absent breath sounds over right lower lobe, clear lung sounds on the left. The findings and the impression was discussed with the patient. I attest to the documentation by the nurse practitioner. Time with Patient: Less than 30
[2017-11-01] MEDS: SODIUM CHLORIDE 0.9% 1,000 ML IV SCH (15:38)
--- NOTE | 2017-11-01 15:43 | P.GSCN ---
History of Present Illness Consult date: 11/01/17 Reason for Consult: Recurrent right pleural effusion, evaluation for possible Pleurx catheter placement. Requesting physician: Tommy Ratliff History of present illness: This is a 76-year-old female patient who is followed by Dr. Jake Yuen on an outpatient basis. Patient has a past medical history significant for chronic lymphocytic leukemia which she follows with Dr. Gallegos, hypertension, osteoarthritis, depression, remote history of smoking, history of kidney stones , vitamin D deficiency, GERD and ITP. Since about 08/30/2017 the patient has had complaints of decreased appetite, worsening cough, sinus drainage and progressive weakness. Patient denies any fever, chills, diarrhea, nausea or vomiting. The patient reports that her cough and decrease appetite progressed through the month of September and she developed some shortness of breath. On the patient underwent a chest x-ray at Dr. Yuen's office with a flu swab which was negative according to the patient's daughter. She was subsequently started on Levaquin for treatment of a right lower lobe pneumonia which she did finish that course of antibiotic treatment. On 10/14/2017 the patient followed up with emely the nurse practitioner for oncology, she remained complaining of cough and was found to have a blood pressure which was 90/50 according to the patient's daughter. The patient underwent a computed tomography scan of her chest and was started on azithromycin and prednisone taper for a right lower lobe pneumonia. Subsequently on October 29 the patient was following up with emely the nurse practitioner for oncology, she remained having complaints of shortness of breath and progressive weakness. During her office visit she was found to have a blood pressure of 80/50, she was given IV fluids for fluid resuscitation and was transported to the emergency department here at [facility] for further workup and evaluation. A 12-lead EKG was completed which showed her to be in atrial fibrillation with RVR heart rate 118. A chest x-ray was completed which showed a moderate to large right-sided pleural effusion. Her lab work demonstrated a WBC of 14.1, Hgb 10.0, PLT of 172, BUN 23, and creatinine 1.13. She was admitted to the hospital and after obtaining consent underwent a right-sided thoracentesis performed by Dr. Chavez with 2000 mL of serosanguineous fluid removed from her right pleural space. Due to the above-mentioned symptoms, chest x-ray results, and recurrent right sided pleural fluid collection a consult was placed for Dr. Bee his from cardiothoracic surgery for evaluation of Pleurx catheter placement. Review of Systems A 14 point review of systems was completed and is negative except as mentioned in the HPI. Past Medical History Past Medical History: Atrial Fibrillation (New-onset paroxysmal), Cancer (CLL), Eye Disorder, GERD/Reflux, Hearing Disorder / Deafness, Hypertension, Osteoarthritis (OA) Additional Past Medical History / Comment(s): CLL, ITP, history of kidney stones , vitamin D deficiency, new-onset paroxysmal atrial fibrillation, macular degeneration. History of Any Multi-Drug Resistant Organisms: None Reported Past Surgical History: Appendectomy, Bariatric Surgery, Cholecystectomy, Heart Catheterization, Hernia Repair, Tubal Ligation Additional Past Surgical History / Comment(s): Lithotripsy for kidney stones around 10 years ago, history of heart catheterization in 1991. Past Anesthesia/Blood Transfusion Reactions: No Reported Reaction Past Psychological History: Depression Smoking Status: Former smoker (With 30 years ago.) Past Alcohol Use History: Rare Past Drug Use History: None Reported - Past Family History Mother Family Medical History: Congestive Heart Failure (CHF), Myocardial Infarction ( OR) Additional Family Medical History / Comment(s): Mother at age 86 from heart failure. Father Family Medical History: Chest Pain / Angina, Coronary Artery Disease (CAD), Myocardial Infarction (OR) Additional Family Medical History / Comment(s): Father at age 79 from a myocardial infarction. Sister(s) Family Medical History: CVA/TIA Additional Family Medical History / Comment(s): kidney disease- hemodialysis Brother(s) Additional Family Medical History / Comment(s): Patient has one brother with coronary artery disease and Alzheimer's dementia. Early onset coronary artery disease her brother was diagnosed in his early 50s with coronary artery disease. Medications and Allergies Home Medications Medication Instructions Recorded Confirmed Type Allopurinol [Allopurinol] 100 mg PO HS 07/20/14 10/28/17 History Calcium Carbonate/Vitamin D3 1 tab PO DAILY 07/20/14 10/28/17 History [Caltrate 600 Plus D3 Tablet] Cholecalciferol [Vitamin D3] 1,000 unit PO DAILY 07/20/14 10/28/17 History Ferrous Sulfate [Feosol] 325 mg PO DAILY 07/20/14 10/28/17 History LORazepam [Ativan] 0.5 mg PO BID PRN 07/20/14 10/28/17 History Lutein 10 mg PO DAILY 07/20/14 10/28/17 History Meclizine [Antivert] 25 mg PO TID PRN 07/20/14 10/28/17 History Multivitamins, Thera [Multivitamin] 1 tab PO DAILY 07/20/14 10/28/17 History Omeprazole [PriLOSEC] 20 mg PO DAILY 07/20/14 10/28/17 History amLODIPine BESYLATE [Amlodipine 5 mg PO DAILY 07/20/14 10/28/17 History Besylate] Citalopram Hydrobromide [CeleXA] 20 mg PO DAILY 10/28/17 10/28/17 History Imbruvica 140mg 420 mg PO DAILY 10/28/17 10/28/17 History Montelukast [Singulair] 10 mg PO HS 10/28/17 10/28/17 History Allergies Allergy/AdvReac Type Severity Reaction Status Date / Time codeine Allergy Confusion Verified 10/28/17 15:03 morphine Allergy Confusion Verified 10/28/17 15:03 Penicillins AdvReac Rash/Hives Verified 10/28/17 15:03 Surgical - Exam Vital Signs Temp Pulse Resp BP Pulse Ox 98.5 F 132 H 16 131/83 95 10/28/17 13:44 10/28/17 13:44 10/28/17 13:44 10/28/17 13:44 10/28/17 13:44 - General well developed, well nourished, no distress, no pain, cachectic - Eyes PERRL, normal ocular movement - ENT normal pinna, normal nares, normal mucosa, no congestion, decreased hearing, dentures - Neck Neck is supple, no lymphadenopathy, no thyromegaly. no masses, no bruits, trachea midline, no venous distension - Respiratory Lung sounds are essentially clear throughout, diminished her right lower lobe. Respirations are symmetrical and nonlabored. Oxygen saturation are 92% on room air. - Cardiovascular Regular rhythm and rate. S1 and S2 present, negative for S3, gallop or murmur. Remote telemetry showing normal sinus rhythm heart rate 80. - Abdomen Abdomen is soft, nontender and nondistended. Active bowel sounds to all 4 abdominal quadrants. No organomegaly. No guarding or rigidity. - Integumentary no rash, no growths, no abnormal pigmentation - Neurologic normal coordination, normal sensation - Musculoskeletal normal gait, normal posture - Psychiatric oriented to time, oriented to person, oriented to place, speech is normal, memory intact Results - Labs 11/01/17 04:14 11/01/17 04:14 Abnormal Lab Results - Last 24 Hours (Table) 10/31/17 11/01/17 11/01/17 Range/Units 05:18 04:14 04:14 WBC 13.5 H (3.8-10.6) k/uL RBC 2.64 L (3.80-5.40) m/uL Hgb 8.3 L (11.4-16.0) gm/dL Hct 27.4 L (34.0-46.0) % MCV 103.7 H (80.0-100.0) fL MCHC 30.2 L (31.0-37.0) g/dL Plt Count 120 L (150-450) k/uL Neutrophils # (Manual) 0.68 L (1.3-7.7) k/uL Lymphocytes # (Manual) 12.29 H (1.0-4.8) k/uL Haptoglobin <8.0 L (31.2-198.0) mg/dL Chloride 115 H (98-107) mmol/L Microbiology - Last 24 Hours (Table) 10/29/17 14:10 Anaerobic Culture - Preliminary Pleural Fluid 10/29/17 14:10 Gram Stain - Preliminary Pleural Fluid Body Fluid Culture - Preliminary Diabetes panel 11/01/17 Range/Units 04:14 Sodium 143 (137-145) mmol/L Potassium 3.6 (3.5-5.1) mmol/L Chloride 115 H (98-107) mmol/L Carbon Dioxide 25 (22-30) mmol/L BUN 15 (7-17) mg/dL Creatinine 0.90 (0.52-1.04) mg/dL Glucose 76 (74-99) mg/dL Calcium 8.6 (8.4-10.2) mg/dL Calcium panel 11/01/17 Range/Units 04:14 Calcium 8.6 (8.4-10.2) mg/dL Pituitary panel 11/01/17 Range/Units 04:14 Sodium 143 (137-145) mmol/L Potassium 3.6 (3.5-5.1) mmol/L Chloride 115 H (98-107) mmol/L Carbon Dioxide 25 (22-30) mmol/L BUN 15 (7-17) mg/dL Creatinine 0.90 (0.52-1.04) mg/dL Glucose 76 (74-99) mg/dL Calcium 8.6 (8.4-10.2) mg/dL Adrenal panel 11/01/17 Range/Units 04:14 Sodium 143 (137-145) mmol/L Potassium 3.6 (3.5-5.1) mmol/L Chloride 115 H (98-107) mmol/L Carbon Dioxide 25 (22-30) mmol/L BUN 15 (7-17) mg/dL Creatinine 0.90 (0.52-1.04) mg/dL Glucose 76 (74-99) mg/dL Calcium 8.6 (8.4-10.2) mg/dL - Imaging Chest x-ray: report reviewed, image reviewed Assessment and Plan (1) Pleural effusion, right Current Visit: Yes Status: Acute Code(s): J90 - PLEURAL EFFUSION, NOT ELSEWHERE CLASSIFIED SNOMED Code(s): 99202141 (2) History of ITP Current Visit: Yes Status: Acute Code(s): Z86.2 - PRSNL HISTORY OF DIS OF THE BLD/BLD-FORM ORG/IMMUN [facility] SNOMED Code(s): 806113075 (3) History of hypertension Current Visit: Yes Status: Acute Code(s): Z86.79 - PERSONAL HISTORY OF OTHER DISEASES OF THE CIRCULATORY SYSTEM SNOMED Code(s): 913840354 (4) Anemia Current Visit: Yes Status: Acute Code(s): D64.9 - ANEMIA, UNSPECIFIED SNOMED Code(s): 430890620 (5) Atrial fibrillation with RVR Current Visit: Yes Status: Acute Code(s): I48.91 - UNSPECIFIED ATRIAL FIBRILLATION SNOMED Code(s): 489974912096188 (6) CLL (chronic lymphocytic leukemia) Current Visit: Yes Status: Acute Code(s): C91.90 - LYMPHOID LEUKEMIA, UNSPECIFIED NOT HAVING ACHIEVED REMISSION SNOMED Code(s): 27050587 (7) Weakness Current Visit: Yes Status: Acute Code(s): R53.1 - WEAKNESS SNOMED Code(s) : 78587675 Plan: The patient was seen and examined. Her chart diagnostics were reviewed. Her case was discussed with Dr. Romo from cardiothoracic surgery. We are awaiting her cytology results from her right thoracentesis on 10/29/2017. Depending on her cytology results, symptoms and reaccumulation of her right pleural fluid further treatment recommendations will follow. Pulmonary management recommendations per Dr. Rouse. Atrial fibrillation management per cardiology recommendations. Thank you Dr. Ratliff for this consult and we look forward to working with you in the care of your patient. Time with Patient: Greater than 30
--- NOTE | 2017-11-01 16:11 | P.PN ---
Subjective Progress Note Date: 11/01/17 This is a 76-year-old female patient of Dr. Yuen and Dr. Garcia with past medical history significant for CLL, hypertension, osteoarthritis, ITP. A Chin gives history that she has been treated for pneumonia about [address] Yuen and placed on antibiotic. She underwent a CAT scan at [facility] and was then placed on another course of antibiotics and also steroids. During this time she also was started on water pills possibly by Dr. Garcia. She was known to have a right-sided pleural effusion. Patient was at Dr. Garcia's office yesterday and her blood pressure was low. She received IV fluids the blood pressure continued to be low and she was sent to [facility] emergency center for evaluation. Patient states that she did have a cough that was nonproductive but this is resolved. She does complain of weakness but no lightheadedness or dizziness. She denies any dysuria. She states that she cannot get enough air and she has been very short of breath. She had a chest x-ray that shows moderate to large right-sided pleural effusion. There could be underlying adjacent atelectasis and/or consolidation. White count was 14.1, hemoglobin 10, platelet count 172, potassium 3.2, BUN 23 and creatinine 1.13. Troponin was 0.016. Total bilirubin 2.4 and liver enzymes within normal limits. ProBNP 874. Patient was found to be in atrial fibrillation with RVR running in the 120s which is new onset. Daughter states the patient has had a 30 pound weight loss since August. She has not eating well and in general not feeling good. Ensure has been ordered. Patient is also scheduled for IVIG next week which she receives about 2 times per year.\ 10/30: Patient underwent large-volume thoracenteses of over 2 L on the right lung on 10/29/2017, patient has improved dyspnea, dyspnea improving, patient denies any chest discomfort or palpitations. Oxygen saturations improving, Pleural effusion sent for cytology and cultures, exudative effusion is suspected anticoagulation for A. fib is still on hold, awaiting final plans for possible repeat thoracentesis in the future 10/31: Patient is clinically better without any significant shortness of breath, patient did not have any PND last night,events, no hypoxemia, patient's chest x- ray seems to be worse compared to previous, pulmonary is following closely, awaiting final cytologies, patient might need repeat thoracenteses vs pleurx catheter placement 11/01: Chest x-ray from yesterday showed worsening effusion. Will ask for cardiothoracic consult to evaluate for Pleurx catheter. Repeat chest x-ray ordered today. Prescription has been signed for walker for home. Objective - Vital Signs Vital signs: Vital Signs Temp 98.2 F 11/01/17 12:00 Pulse 64 11/01/17 12:00 Resp 18 11/01/17 12:00 BP 131/62 11/01/17 12:00 Pulse Ox 92 L 11/01/17 12:00 Intake & Output 10/31/17 11/01/17 11/01/17 18:59 06:59 18:59 Intake Total 600 200 Balance 600 200 Weight 68.2 kg Intake: Oral 600 200 Other: Voiding Method Toilet Toilet # Voids 3 2 # Bowel Movements 1 - Exam General appearance: Present: average body habitus, cooperative, no acute distress. Absent: disheveled, mild distress, morbidly obese, obese, severe distress, thin - EENT Eyes: Present: anicteric sclerae, EOMI, PERRLA, dentition normal, normal appearance. Absent: abnormal pupil, disc margins sharp, edentulous, fundus normal, photophobia, poor dentition, ptosis, scleral icterus ENT: Present: NA/AT, normal oropharynx - Neck Neck: Present: normal ROM - Respiratory Respiratory: right: diminished, dullness, left: CTA, negative: rales, rhonchi, wheezing, prolonged expiration, prolonged inspiration - Cardiovascular Rhythm: regular Heart sounds: normal: S1, S2 - Gastrointestinal General gastrointestinal: Present: normal bowel sounds, soft - Integumentary Integumentary: Present: normal, normal turgor - Neurologic Neurologic: Present: CNII-XII intact - Psychiatric Psychiatric: Present: A&O x's 3, appropriate affect, intact judgment & insight - Labs CBC & Chem 7: 11/01/17 04:14 11/01/17 04:14 Labs: Abnormal Lab Results - Last 24 Hours (Table) 11/01/17 11/01/17 Range/Units 04:14 04:14 WBC 13.5 H (3.8-10.6) k/uL RBC 2.64 L (3.80-5.40) m/uL Hgb 8.3 L (11.4-16.0) gm/dL Hct 27.4 L (34.0-46.0) % MCV 103.7 H (80.0-100.0) fL MCHC 30.2 L (31.0-37.0) g/dL Plt Count 120 L (150-450) k/uL Neutrophils # (Manual) 0.68 L (1.3-7.7) k/uL Lymphocytes # (Manual) 12.29 H (1.0-4.8) k/uL Chloride 115 H (98-107) mmol/L Microbiology - Last 24 Hours (Table) 10/29/17 14:10 Anaerobic Culture - Preliminary Pleural Fluid 10/29/17 14:10 Gram Stain - Preliminary Pleural Fluid Body Fluid Culture - Preliminary Assessment and Plan Plan: 1. Hypotension secondary to a combination of dehydration and atrial fibrillation with RVR. 2. New onset atrial fibrillation with rapid ventricular response, converted to sinus rhythm. Cardiology consult is appreciated. IV Cardizem discontinued. Patient started on Lopressor. No anticoagulation in case patient needs thoracentesis.. 3. Acute hypoxic respiratory failure secondary to a large right-sided pleural effusion. Consult with Dr. Chavez. Status post right-sided thoracentesis. Continue oxygen therapy. Consult with cardiothoracic surgery for Pleurx catheter placement. 4. Chronic lymphocytic leukemia under the care of Dr Garcia. Patient is on Imbruvica. 5. Gastroesophageal reflux disease and GI prophylaxis. Continue omeprazole. 6. Hypertension. Continue amlodipine 5 mg daily. 7. Anemia of chronic disease. Continue ferrous sulfate. 8. Gout. Continue allopurinol. 9. General anxiety disorder and recurrent depression. Continue Ativan as needed and Celexa 20 mg daily. 10. Acute kidney failure with chronic kidney disease stage II. 11. Chemotherapy-induced bicytopenia, megalocytosis. Oncology is following. 12. DVT prophylaxis. KAMERON hose and SCDs. Discharge plan: Return home, patient may benefit from home care. Walker ordered by case management. Impression and plan of care have been directed as dictated by the signing physician. Maggi Watson nurse practitioner acting as scribe for signing physician.
--- NOTE | 2017-11-01 16:39 | P.PN ---
Progress Note - Text Progress Note Date: 11/01/17 Pt not seen but, orders for IVIg were sched outpatient so, will be ordered for infusion. IgG levels were checked in office on 10/15 and the level was 380. 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
[2017-11-01] MEDS ORDERED: IMMUNE GLOBULIN (HUMAN-IGG) 1 GM/10 ML VIAL IV ONE (16:45)
[2017-11-01] MEDS ORDERED: IMMUNE GLOBULIN (HUMAN-IGG) 20 GM in EMPTY BAG 1 BAG IV ONE (18:00)
[2017-11-01] MEDS ORDERED: IMMUNE GLOBULIN (HUMAN-IGG) 5 GM in EMPTY BAG 1 BAG IV ONE (18:00)
[2017-11-01] MEDS ORDERED: POTASSIUM CHLORIDE ER 20 MEQ TAB.ER PO SCH (20:00)
[2017-11-01] MEDS: ALLOPURINOL 100 MG TAB PO SCH (20:14)
[2017-11-01] MEDS: MONTELUKAST 10 MG TAB PO SCH (20:15)
[2017-11-02 06:40] LABS: HCT 26.9 % (34.0-46.0); HGB 8.3 gm/dL (11.4-16.0); Hypochromasia Moderate; MCH 31.3 pg (25.0-35.0); MCHC 30.6 g/dL (31.0-37.0); Macrocytosis Slight; Platelet Count 132 k/uL (150-450); RBC 2.64 m/uL (3.80-5.40); RDW 15.3 % (11.5-15.5); WBC 16.8 k/uL (3.8-10.6)
[2017-11-02] MEDS: PANTOPRAZOLE 40 MG TABLET PO SCH (06:47)
[2017-11-02 08:04] LABS: Lymphocytes # (M) 15.79 k/uL (1.0-4.8); Metamyelocytes # (M) 0.17 k/uL (0); Metamyelocytes % 1 %; Neutrophils # (M) 1.01 k/uL (1.3-7.7); Neutrophils % (M) 6 %; Nucleated Red Blood Cells 0 /100 WBC (0-0); Total Cells Counted 200
[2017-11-02 08:06] LABS: Anisocytosis (M) Present; Poikilocytosis (M) Present
[2017-11-02] MEDS: METOPROLOL TARTRATE 25 MG TAB PO SCH ×3 (08:13→20:45)
[2017-11-02] MEDS: amLODIPine 5 MG TAB PO SCH (08:13)
[2017-11-02] MEDS: CITALOPRAM HYDROBROMIDE 20 MG TAB PO SCH (08:13)
[2017-11-02] MEDS: CALCIUM CARB-VIT D 500MG-200UN 1 EACH TAB PO SCH (08:13)
[2017-11-02] MEDS: FERROUS SULFATE 325 MG TAB PO SCH (08:13)
[2017-11-02] MEDS: CHOLECALCIFEROL 1,000 UNIT TAB PO SCH (08:14)
[2017-11-02] MEDS: MULTIVITAMINS, THERA 1 EACH TAB PO SCH (08:14)
--- NOTE | 2017-11-02 08:38 | XR ---
EXAMINATION TYPE: XR chest 2V DATE OF EXAM: 11/02/2017 COMPARISON: 11/01/2017 HISTORY: Pleural effusion TECHNIQUE: Frontal and lateral views of the chest are obtained. FINDINGS: There is a persistent moderate right pleural effusion appearing minimally smaller than on the prior exam with right basilar airspace disease. Remainder the lungs are clear. Cardiomediastinal silhouette is within normal limits. Osseous structures are intact with acromioclavicular arthropathy. IMPRESSION: Minimal improvement in the moderate right pleural effusion and right-sided airspace dise ase, likely compressive atelectasis.
[2017-11-02 11:38] VITALS: BMI 24.3
--- NOTE | 2017-11-02 11:56 | P.PN ---
Subjective Progress Note Date: 11/02/17 Principal diagnosis: Large right-sided pleural effusion This is a very pleasant 76-year-old female patient who is with Dr. Yuen as her primary care physician. She has a history of hypertension, osteoarthritis, depression, previous smoking history. She also has a history of chronic lymphocytic leukemia and follows with Dr. Scherer for the same. She is on Imbruvica. She was seen yesterday at the oncology office and was found to be quite hypotensive. She was given a liter of fluid resuscitation without much improvement. She was quite fatigued and weak. She's also been having ongoing issues with shortness of breath. Her chest x-ray showed moderate to large right -sided pleural effusion with atelectasis. She was being set up for an outpatient thoracentesis along with IVIG treatment for next week however based on yesterday's finding she was admitted to the hospital. She was also found to be in atrial fibrillation with a rapid ventricular response which was new for the patient. She has since converted to sinus rhythm post-Cardizem drip. We are consulted for the large pleural effusion. An ultrasound of the chest shows a right-sided pocket of 7.9 cm. He is seen today in consultation on the active care unit. She is awake and alert in no acute distress. She is doing quite a bit better today as compared to yesterday. She is feeling stronger. She does have ongoing issues with shortness of breath on exertion. He is maintaining good O2 saturations in the 90s on 2 L/m per nasal cannula. Her blood pressure has recovered. She is hemodynamically stable. Afebrile. Results revealed WBC 14.1. Hemoglobin 10.0. Platelet count 172,000. Creatinine 1.20. ProBNP 874. Troponins negative 3. Reevaluated today on 10/30/2017, patient seems to be doing better, breathing a lot easier, the pleural effusion has a relatively high protein, this is more likely an exudative effusion. LDH is 139, remaining workup on the pleural effusion is pending. I did send the pleural effusion for cytology and flow cytometry. Reevaluated today on 10/31/2017, patient feels generally weak and tired, however not short of breath, not having any chest pain. Chest x-ray is showing reaccumulation of right pleural effusion, cardiology is addressing her intermittent episodes of atrial fibrillation with RVR. The cytology on the fluid is still pending, patient may require another thoracentesis, however based on the cytology, the patient may actually require a Pleurx catheter placement. Hence we'll wait until the cytology report comes back on this patient before any decision will be made regarding another thoracentesis or Pleurx catheter placement. Again the patient is not in any form of respiratory distress at this point, and no casas to repeat thoracentesis at this point yet. On 11/01/2017 patient seen in follow-up. She states her breathing is easier, denies any chest pain. She does feel that the fluid on the right is reaccumulating, but states the dyspnea, and the pressure not as severe as it was on presentation, she felt a rocklike sensation sitting on the chest. Today' s chest x-ray shows moderate to large right pleural effusion. Pleural fluid cytology from 10/29/2017 is still pending. She had 2000 mL of pleural fluid removed from the right pleural effusion on 10/29/[address] Roger. Pleural fluid analysis showed LDH of 139, fluid total protein was 2800, and the fluid is transudative. Pleural fluid cultures are still pending. She remains hemodynamically stable, she is on room air, with O2 sat at 92-93%. There are absent breath sounds over right lower lobe, clear breath sounds on the left. She remains afebrile. He was discussed with her that fluid cytology results will help determine course of further treatment. It is likely that she will need a Pleurx catheter view of rapid reaccumulation of right pleural fluid. On 11/02/2017 patient seen in follow-up. She states that she is slightly more dyspneic today compared to yesterday. Chest x-ray was reviewed, there is very minimal improvement in the moderate-sized right pleural effusion. Cytology of the pleural fluid is still pending at this time. Pleural fluid cultures are pending as well. She remains on room air, with O2 sat at 95%. Hemodynamically stable. She is afebrile. Lung sounds are positive for absent breath sounds over right lower lobe, clear on the left. Denies any chest pain, does have an occasional nonproductive dry cough. Today's lab work shows WBC of 16.8, hemoglobin is 8.3. She is awaiting to be seen by the cardiothoracic surgery in regards to placement of the right Pleurx catheter. Objective - Vital Signs Vital signs: Vital Signs Temp 98.2 F 11/02/17 08:00 Pulse 76 11/02/17 08:00 Resp 18 11/02/17 08:00 BP 124/61 11/02/17 08:00 Pulse Ox 95 11/02/17 08:00 Intake & Output 11/01/17 11/02/17 11/02/17 18:59 06:59 18:59 Output Total 200 Balance -200 Weight 68.5 kg 68.5 kg Output: Urine 200 Other: Voiding Method Toilet Toilet Toilet # Voids 3 1 # Bowel Movements 1 - Exam GENERAL EXAM: Pale, cachectic. Alert, fairly comfortable in no apparent distress. HEAD: Normocephalic. EYES: Normal reaction of pupils, equal size. NOSE: Clear with pink turbinates. THROAT: No erythema or exudates. NECK: No masses, no JVD. CHEST: No chest wall deformity. LUNGS: Absent breath sounds and dullness at the right base, clear breath sounds on the left CVS: Irregular irregular rhythm, S1 and S2 normal with no audible murmur, regular rhythm. ABDOMEN: No hepatosplenomegaly, normal bowel sounds, no guarding or rigidity. SPINE: Kyphoscoliosis SKIN: No rashes CENTRAL NERVOUS SYSTEM: No focal deficits, tone is normal in all 4 extremities. EXTREMITIES: There is no peripheral edema. No clubbing, no cyanosis. Peripheral pulses are intact. - Labs CBC & Chem 7: 11/02/17 05:26 11/01/17 04:14 Labs: Abnormal Lab Results - Last 24 Hours (Table) 11/02/17 Range/Units 05:26 WBC 16.8 H (3.8-10.6) k/uL RBC 2.64 L (3.80-5.40) m/uL Hgb 8.3 L (11.4-16.0) gm/dL Hct 26.9 L (34.0-46.0) % MCV 102.0 H (80.0-100.0) fL MCHC 30.6 L (31.0-37.0) g/dL Plt Count 132 L (150-450) k/uL Neutrophils # (Manual) 1.01 L (1.3-7.7) k/uL Lymphocytes # (Manual) 15.79 H (1.0-4.8) k/uL Metamyelocytes # (Man) 0.17 H (0) k/uL Microbiology - Last 24 Hours (Table) 10/29/17 14:10 Gram Stain - Preliminary Pleural Fluid Body Fluid Culture - Preliminary Assessment and Plan Plan: Assessment: #1 Hypotension secondary to dehydration. Recovered. #2 Acute hypoxic respiratory failure secondary to large right pleural effusion, recovered, currently on room air, maintaining O2 sat at 95%. #3 Chronic lymphocytic leukemia currently receiving Imbruvica. #4 new-onset atrial fibrillation, currently in normal sinus rhythm. #5 History of arthritis. #6 History of hypertension. Recommendation: Patient is feeling slightly more dyspneic today, especially on exertion. But otherwise remains stable, she is on room air, maintaining O2 sat at 95%. Vital signs are stable. Awaiting to be seen by cardiothoracic surgery in regards to placement of right pleural catheter. Pleural fluid cytology still pending at this time. Chest x-ray from today was reviewed, and shows slight improvement in the moderate right pleural effusion and right-sided airspace disease, likely compressive atelectasis. Continue with all other medical treatments. I performed a history & physical examination of the patient and discussed their management with my nurse practitioner, Yue Rodriguez. I reviewed the nurse practitioner's note and agree with the documented findings and plan of care. Lung sounds are positive for absent breath sounds over right lower lobe, clear lung sounds on the left. The findings and the impression was discussed with the patient. I attest to the documentation by the nurse practitioner. Time with Patient: Less than 30
--- NOTE | 2017-11-02 12:17 | P.PN ---
Subjective Progress Note Date: 11/02/17 Principal diagnosis: a-fib with RVR Pt seen today in follow up. She looks much better today, she states feeling much better, more alert, less weak, no longer has a sense of "dying". She is breathing more comfortably after thoracentesis, flow and cytology pending, she did receive her IVIG for hypogammaglobulinemia, no fevers, sore throat, tolerating oral intake without nausea, she has had BM, no bleeding or pain to report. Objective - Vital Signs Vital signs: Vital Signs Temp 98.2 F 11/02/17 08:00 Pulse 76 11/02/17 08:00 Resp 18 11/02/17 08:00 BP 124/61 11/02/17 08:00 Pulse Ox 95 11/02/17 08:00 Intake & Output 11/01/17 11/02/17 11/02/17 18:59 06:59 18:59 Output Total 200 Balance -200 Weight 68.5 kg 68.5 kg Output: Urine 200 Other: Voiding Method Toilet Toilet Toilet # Voids 3 1 # Bowel Movements 1 - Constitutional General appearance: Present: average body habitus, cooperative, no acute distress - EENT Eyes: Present: anicteric sclerae - Neck Neck: Present: lymphadenopathy - Respiratory Respiratory: right: other (absent breath sounds lower 2/3 of lung posteriorly), left: CTA - Cardiovascular Rhythm: irregularly irregular - Peripheral edema leg Peripheral Edema: bilateral: Trace - Gastrointestinal General gastrointestinal: Present: normal bowel sounds, soft - Neurologic Neurologic: Present: CNII-XII intact - Musculoskeletal Musculoskeletal: Present: generalized weakness, strength equal bilaterally - Psychiatric Psychiatric: Present: A&O x's 3, appropriate affect, intact judgment & insight - Labs CBC & Chem 7: 11/02/17 05:26 11/01/17 04:14 Labs: Abnormal Lab Results - Last 24 Hours (Table) 11/02/17 Range/Units 05:26 WBC 16.8 H (3.8-10.6) k/uL RBC 2.64 L (3.80-5.40) m/uL Hgb 8.3 L (11.4-16.0) gm/dL Hct 26.9 L (34.0-46.0) % MCV 102.0 H (80.0-100.0) fL MCHC 30.6 L (31.0-37.0) g/dL Plt Count 132 L (150-450) k/uL Neutrophils # (Manual) 1.01 L (1.3-7.7) k/uL Lymphocytes # (Manual) 15.79 H (1.0-4.8) k/uL Metamyelocytes # (Man) 0.17 H (0) k/uL Microbiology - Last 24 Hours (Table) 10/29/17 14:10 Gram Stain - Preliminary Pleural Fluid Body Fluid Culture - Preliminary Assessment and Plan (1) Pleural effusion, right Narrative/Plan: Suspect r/t chronic leukemia, thoracentesis cytology and flow pending. Cardiothoracic and Pulmonary following pt, monitoring and managing at this time. Pt respiratory status is significantly improved. Pt will cont to be monitored, PRN intervention. Current Visit: Yes Status: Acute Priority: High Code(s): J90 - PLEURAL EFFUSION, NOT ELSEWHERE CLASSIFIED SNOMED Code(s): 75376585 (2) CLL (chronic lymphocytic leukemia) Narrative/Plan: Pleural effusion and shotty adenopathy on exam in neck and supraclavicular area highly suspect CLL recurrence. No evidence of an acute leukemia or blast crisis but, labs are being monitored closely for any acute changes. Current therapy with ibrutinib is being held for now, pt may require change in therapy. Treatment decisions will be made once pending results available. Current Visit: Yes Status: Acute Priority: High Code(s): C91.90 - LYMPHOID LEUKEMIA, UNSPECIFIED NOT HAVING ACHIEVED REMISSION SNOMED Code(s): 27549180 (3) Hypogammaglobulinemia Narrative/Plan: Pt has required IVIG infusions in the past, her immunoglobulin levels were evaluated in the office prior to admission and she was to receive infusion. Gammaguard was ordered and infused. Current Visit: Yes Status: Chronic Priority: Medium Code(s): D80.1 - NONFAMILIAL HYPOGAMMAGLOBULINEMIA SNOMED Code(s): 698808406 (4) Anemia Narrative/Plan: No acute intervention, likely a combination of factors contributing including marrow suppression from CLL, treatment of CLL and acute illness/stress. No transfusion at this time, cont to monitor CBC. Current Visit: Yes Status: Acute Priority: Medium Code(s): D64.9 - ANEMIA , UNSPECIFIED SNOMED Code(s): 239465477 (5) Weakness Narrative/Plan: PT/OT eval and treat Current Visit: Yes Status: Acute Priority: Medium Code(s): R53.1 - WEAKNESS SNOMED Code(s): 17255551
--- NOTE | 2017-11-02 12:47 | P.PN ---
Subjective Progress Note Date: 11/02/17 Principal diagnosis: Right pleural effusion, chronic lymphocytic leukemia, hypertension, osteoarthritis, depression, remote history of smoking, history of kidney stones , vitamin D deficiency, GERD, macular degeneration, new onset paroxysmal atrial fibrillation and ITP. This is 76-year-old female patient who is followed by Dr. Jake Yuen on outpatient basis. Recently the patient has had complaints of decreased appetite , worsening cough, sinus drainage and progressive weakness. Subsequent she underwent a chest x-ray which showed a right lower lobe pneumonia which was treated with a course of Levaquin. For further evaluation the patient underwent a computed tomography scan of her chest which redemonstrated a right lower lobe pneumonia and was treated with a course of azithromycin and prednisone. The patient continued to have progressive weakness, shortness of breath, decreased appetite, weight loss and cough. Upon follow-up with oncology she was found to be hypotensive with a blood pressure 80/50, a liter of normal saline was given for fluid resuscitation and she was directed to the emergency department here at [facility]. A 12-lead EKG showed her to be in atrial fibrillation with RVR heart rate in the 120's, a chest x- ray was completed which showed her to have a right pleural effusion. Subsequently on 10/30/2017 patient underwent a right thoracentesis performed by Dr. Chavez with 2000 mL of serosanguineous fluid removed. The patient is currently sitting up to bedside chair. She is in no acute distress. She denies any complaints of cough, shortness of breath or pain this time. She continues on room air with oxygen saturations of 98%. Objective - Vital Signs Vital signs: Vital Signs Temp 98.7 F 11/02/17 04:00 Pulse 73 11/02/17 04:00 Resp 18 11/02/17 04:00 BP 121/59 11/02/17 04:00 Pulse Ox 98 11/02/17 04:00 Intake & Output 11/01/17 11/02/17 11/02/17 18:59 06:59 18:59 Output Total 200 Balance -200 Weight 68.5 kg Output: Urine 200 Other: Voiding Method Toilet Toilet # Voids 3 1 # Bowel Movements 1 - Constitutional General appearance: Present: cooperative, no acute distress - EENT ENT: Present: hard of hearing - Neck Details: Neck is supple, no JVD, no lymphadenopathy. - Respiratory Details: Lung sounds essentially clear throughout, diminished her right lower lobe. Respirations are symmetrical and nonlabored. Oxygen saturation are 98% on room air. - Cardiovascular Details: Regular rhythm and rate. S1 and S2 present, negative for S3, gallop or murmur. Remote telemetry showing normal sinus rhythm heart rate 78. No edema present. - Gastrointestinal Gastrointestinal Comment(s): Abdomen is soft, nontender and nondistended. Active bowel sounds to all 4 abdominal quadrants. Tolerating oral intake. - Genitourinary Genitourinary Comment(s): Urine output adequate. Clear yellow urine. - Integumentary Integumentary Comment(s): Skin is warm, dry and pink. No rashes. - Neurologic Neurologic: Present: CNII-XII intact - Musculoskeletal Musculoskeletal: Present: gait normal, generalized weakness, strength equal bilaterally - Psychiatric Psychiatric: Present: A&O x's 3, appropriate affect, intact judgment & insight - Allied health notes Allied health notes reviewed: nursing - Labs CBC & Chem 7: 11/02/17 05:26 11/01/17 04:14 Labs: Abnormal Lab Results - Last 24 Hours (Table) 11/02/17 Range/Units 05:26 WBC 16.8 H (3.8-10.6) k/uL RBC 2.64 L (3.80-5.40) m/uL Hgb 8.3 L (11.4-16.0) gm/dL Hct 26.9 L (34.0-46.0) % MCV 102.0 H (80.0-100.0) fL MCHC 30.6 L (31.0-37.0) g/dL Plt Count 132 L (150-450) k/uL Neutrophils # (Manual) 1.01 L (1.3-7.7) k/uL Lymphocytes # (Manual) 15.79 H (1.0-4.8) k/uL Metamyelocytes # (Man) 0.17 H (0) k/uL Microbiology - Last 24 Hours (Table) 10/29/17 14:10 Gram Stain - Preliminary Pleural Fluid Body Fluid Culture - Preliminary - Imaging and Cardiology Chest x-ray: report reviewed, image reviewed Assessment and Plan (1) Pleural effusion, right Current Visit: Yes Status: Acute Code(s): J90 - PLEURAL EFFUSION, NOT ELSEWHERE CLASSIFIED SNOMED Code(s): 07499617 (2) History of ITP Current Visit: Yes Status: Acute Code(s): Z86.2 - PRSNL HISTORY OF DIS OF THE BLD/BLD-FORM ORG/IMMUN [facility] SNOMED Code(s): 989598227 (3) History of hypertension Current Visit: Yes Status: Acute Code(s): Z86.79 - PERSONAL HISTORY OF OTHER DISEASES OF THE CIRCULATORY SYSTEM SNOMED Code(s): 055020053 (4) Anemia Current Visit: Yes Status: Acute Code(s): D64.9 - ANEMIA, UNSPECIFIED SNOMED Code(s): 279169260 (5) Atrial fibrillation with RVR Current Visit: Yes Status: Acute Code(s): I48.91 - UNSPECIFIED ATRIAL FIBRILLATION SNOMED Code(s): 707566510605901 (6) CLL (chronic lymphocytic leukemia) Current Visit: Yes Status: Acute Code(s): C91.90 - LYMPHOID LEUKEMIA, UNSPECIFIED NOT HAVING ACHIEVED REMISSION SNOMED Code(s): 27245014 (7) Weakness Current Visit: Yes Status: Acute Code(s): R53.1 - WEAKNESS SNOMED Code(s) : 56425582 Plan: 1. Atrial fibrillation management per cardiology. 2. Chronic lymphocytic leukemia management per oncology. 3. DVT and GI prophylaxis. 4. We will continue to monitor her chest x-ray closely for recurrence of right pleural effusion and possible Pleurx catheter placement versus pigtail catheter placement. 5. More recommendations to follow as patient progresses in her care. Time with Patient: Greater than 30
[2017-11-02] MEDS: SODIUM CHLORIDE 0.9% 1,000 ML IV SCH (15:11)
[2017-11-02] MEDS: ALLOPURINOL 100 MG TAB PO SCH (20:44)
[2017-11-02] MEDS: MONTELUKAST 10 MG TAB PO SCH (20:44)
[2017-11-02] MEDS: diphenhydrAMINE 25 MG CAP PO PRN (20:48)
[2017-11-02] MEDS: LORazepam 0.5 MG TAB PO PRN (20:48)
[2017-11-03 06:03] LABS: HCT 28.1 % (34.0-46.0); HGB 8.5 gm/dL (11.4-16.0); Hypochromasia Moderate; MCHC 30.3 g/dL (31.0-37.0); MCV 102.4 fL (80.0-100.0); Macrocytosis Slight; Mean Platelet Volume 9.4; Platelet Count 100 k/uL (150-450); Poikilocytosis Slight; RBC 2.75 m/uL (3.80-5.40); RDW 15.3 % (11.5-15.5); WBC 6.7 k/uL (3.8-10.6)
[2017-11-03 06:27] LABS: Lymphocytes # (M) 6.43 k/uL (1.0-4.8); Monocytes # (M) 0.07 k/uL (0-1.0); Neutrophils % (M) 3 %; Nucleated Red Blood Cells 0 /100 WBC (0-0); Total Cells Counted 100
[2017-11-03 06:28] LABS: Ovalocytes Present
[2017-11-03] MEDS: PANTOPRAZOLE 40 MG TABLET PO SCH (07:14)
--- NOTE | 2017-11-03 07:22 | XR ---
EXAMINATION TYPE: XR chest 2V DATE OF EXAM: 11/03/2017 COMPARISON: 11/02/2017 HISTORY: Shortness of breath TECHNIQUE: Frontal and lateral views of the chest are obtained. FINDINGS: Scattered senescent parenchymal changes noted. Hyperinflation compatible with COPD. Moderate right-sided pleural effusion persists and is essentially unchanged. Underlying infiltrate, m ass or atelectasis not excluded. Heart size is stable. Mediastinal structures are stable and grossly unremarkable. No evidence for hilar prominence. Degenerative changes dorsal spine. IMPRESSION: 1. Moderate right-sided pleural effusion persists and is essentially unchanged. Underlying infiltrate , mass or atelectasis not excluded.
[2017-11-03] MEDS: ACETAMINOPHEN TAB 500 MG TAB PO PRN ×3 (07:34→22:09)
[2017-11-03] MEDS: METOPROLOL TARTRATE 25 MG TAB PO SCH ×3 (09:11→19:41)
[2017-11-03] MEDS: amLODIPine 5 MG TAB PO SCH (09:11)
[2017-11-03] MEDS: CITALOPRAM HYDROBROMIDE 20 MG TAB PO SCH (09:11)
--- NOTE | 2017-11-03 10:20 | P.PN ---
Subjective Progress Note Date: 11/03/17 Principal diagnosis: Right pleural effusion. History of chronic lymphocytic leukemia, hypertension, osteoarthritis, depression, remote tobacco dependence, vitamin D deficiency, GERD, macular degeneration, ITP. New onset paroxysmal atrial fibrillation. Patient's currently sitting up in the bed in no acute distress. Remains on room air and states she feels significantly better than when she came in. Denies any pain. Objective - Vital Signs Vital signs: Vital Signs Temp 98.2 F 11/03/17 04:00 Pulse 86 11/03/17 04:00 Resp 17 11/03/17 04:00 BP 117/56 11/03/17 04:00 Pulse Ox 92 L 11/03/17 04:00 Intake & Output 11/02/17 11/03/17 11/03/17 18:59 06:59 18:59 Intake Total 540 980 Output Total 650 Balance -110 980 Weight 68.5 kg 68.3 kg Intake: Intake, IV Titration 20 Amount Sodium Chloride 0.9% 1, 20 000 ml @ 20 mls/hr IV . Q24H [facility] Rx#:[id number] Oral 540 960 Output: Urine 650 Other: Voiding Method Toilet Toilet # Voids 2 - Constitutional General appearance: Present: cooperative, no acute distress - Respiratory Details: Lungs sounds clear bilaterally, diminished on the right. Respirations even, nonlabored. Currently on room air with oxygen saturation 92-95%. - Cardiovascular Details: S1, S2 present. Regular rate and rhythm, sinus rhythm on telemetry. Palpable peripheral pulses bilaterally. No edema present. No calf pain or tenderness noted. - Gastrointestinal Gastrointestinal Comment(s): Abdomen soft, nontender, nondistended. Active bowel sounds 4 quadrants. Tolerating diet. - Genitourinary Genitourinary Comment(s): Continues to void. - Integumentary Integumentary Comment(s): Skin is warm and dry with evidence of good perfusion. - Neurologic Neurologic: Present: CNII-XII intact - Musculoskeletal Musculoskeletal: Present: gait normal, strength equal bilaterally - Psychiatric Psychiatric: Present: A&O x's 3, appropriate affect, intact judgment & insight - Allied health notes Allied health notes reviewed: nursing - Labs CBC & Chem 7: 11/03/17 05:32 11/01/17 04:14 Labs: Abnormal Lab Results - Last 24 Hours (Table) 11/02/17 11/03/17 Range/Units 05:26 05:32 RBC 2.75 L (3.80-5.40) m/uL Hgb 8.5 L (11.4-16.0) gm/dL Hct 28.1 L (34.0-46.0) % MCV 102.4 H (80.0-100.0) fL MCHC 30.3 L (31.0-37.0) g/dL Plt Count 100 L (150-450) k/uL Neutrophils # (Manual) 1.01 L 0.20 L (1.3-7.7) k/uL Lymphocytes # (Manual) 15.79 H 6.43 H (1.0-4.8) k/uL Metamyelocytes # (Man) 0.17 H (0) k/uL Microbiology - Last 24 Hours (Table) 10/29/17 14:10 Anaerobic Culture - Final Pleural Fluid 10/29/17 14:10 Gram Stain - Final Pleural Fluid Body Fluid Culture - Final - Imaging and Cardiology Chest x-ray: report reviewed, image reviewed Assessment and Plan (1) CLL (chronic lymphocytic leukemia) Current Visit: Yes Status: Chronic Priority: High Code(s): C91.90 - LYMPHOID LEUKEMIA, UNSPECIFIED NOT HAVING ACHIEVED REMISSION SNOMED Code(s): 30686387 (2) History of ITP Current Visit: No Status: Chronic Code(s): Z86.2 - PRSNL HISTORY OF DIS OF THE BLD/BLD-FORM ORG/IMMUN [facility] SNOMED Code(s): 121880974 (3) History of hypertension Current Visit: Yes Status: Chronic Code(s): Z86.79 - PERSONAL HISTORY OF OTHER DISEASES OF THE CIRCULATORY SYSTEM SNOMED Code(s): 813585782 (4) Pleural effusion, right Current Visit: Yes Status: Acute Priority: High Code(s): J90 - PLEURAL EFFUSION, NOT ELSEWHERE CLASSIFIED SNOMED Code(s): 75323847 Plan: 1. We will continue to monitor her chest x-rays for increase in right pleural effusion to make sure there is enough fluid to be up to capture with a drainage tube without the increased risk of sticking the lung. 2. Await cytology results. 3. Rhythm, rate management per cardiology. 4. CLL management per oncology. 5. Medical management per primary, pulmonology. 6. Patient does not need to remain in the hospital from our standpoint. If she is determined to be stable for discharge by other consultants she may have follow-up x-rays along with symptomatology and cytology results to determine appropriateness and timing of drainage tube placement. Time with Patient: Greater than 30
--- NOTE | 2017-11-03 11:12 | P.PN ---
Subjective Progress Note Date: 11/02/17 This is a 76-year-old female patient of Dr. Yeun and Dr. Garcia with past medical history significant for CLL, hypertension, osteoarthritis, ITP. A Chin gives history that she has been treated for pneumonia about [address] Yuen and placed on antibiotic. She underwent a CAT scan at [facility] and was then placed on another course of antibiotics and also steroids. During this time she also was started on water pills possibly by Dr. Garcia. She was known to have a right-sided pleural effusion. Patient was at Dr. Garcia's office yesterday and her blood pressure was low. She received IV fluids the blood pressure continued to be low and she was sent to [facility] emergency center for evaluation. Patient states that she did have a cough that was nonproductive but this is resolved. She does complain of weakness but no lightheadedness or dizziness. She denies any dysuria. She states that she cannot get enough air and she has been very short of breath. She had a chest x-ray that shows moderate to large right-sided pleural effusion. There could be underlying adjacent atelectasis and/or consolidation. White count was 14.1, hemoglobin 10, platelet count 172, potassium 3.2, BUN 23 and creatinine 1.13. Troponin was 0.016. Total bilirubin 2.4 and liver enzymes within normal limits. ProBNP 874. Patient was found to be in atrial fibrillation with RVR running in the 120s which is new onset. Daughter states the patient has had a 30 pound weight loss since August. She has not eating well and in general not feeling good. Ensure has been ordered. Patient is also scheduled for IVIG next week which she receives about 2 times per year.\ 10/30: Patient underwent large-volume thoracenteses of over 2 L on the right lung on 10/29/2017, patient has improved dyspnea, dyspnea improving, patient denies any chest discomfort or palpitations. Oxygen saturations improving, Pleural effusion sent for cytology and cultures, exudative effusion is suspected anticoagulation for A. fib is still on hold, awaiting final plans for possible repeat thoracentesis in the future 10/31: Patient is clinically better without any significant shortness of breath, patient did not have any PND last night,events, no hypoxemia, patient's chest x- ray seems to be worse compared to previous, pulmonary is following closely, awaiting final cytologies, patient might need repeat thoracenteses vs pleurx catheter placement 11/01: Chest x-ray from yesterday showed worsening effusion. Will ask for cardiothoracic consult to evaluate for Pleurx catheter. Repeat chest x-ray ordered today. Prescription has been signed for walker for home. 11/02: Repeat chest x-ray shows minimal improvement in the moderate right pleural effusion and right-sided airspace disease likely compressive atelectasis. Patient has been seen by cardiothoracic surgery. Cytology report remains pending. Patient is scheduled for IVIG by oncology. Patient feels like her breathing is a little better from yesterday. Objective - Vital Signs Vital signs: Vital Signs Temp 98.2 F 11/02/17 08:00 Pulse 76 11/02/17 08:00 Resp 18 11/02/17 08:00 BP 124/61 11/02/17 08:00 Pulse Ox 95 11/02/17 08:00 Intake & Output 11/01/17 11/02/17 11/02/17 18:59 06:59 18:59 Output Total 200 Balance -200 Weight 68.5 kg Output: Urine 200 Other: Voiding Method Toilet Toilet Toilet # Voids 3 1 # Bowel Movements 1 - Exam General appearance: Present: average body habitus, cooperative, no acute distress. Absent: disheveled, mild distress, morbidly obese, obese, severe distress, thin - EENT Eyes: Present: anicteric sclerae, EOMI, PERRLA, dentition normal, normal appearance. Absent: abnormal pupil, disc margins sharp, edentulous, fundus normal, photophobia, poor dentition, ptosis, scleral icterus ENT: Present: NA/AT, normal oropharynx - Neck Neck: Present: normal ROM - Respiratory Respiratory: right: diminished, dullness, left: CTA, negative: rales, rhonchi, wheezing, prolonged expiration, prolonged inspiration - Cardiovascular Rhythm: regular Heart sounds: normal: S1, S2 - Gastrointestinal General gastrointestinal: Present: normal bowel sounds, soft - Integumentary Integumentary: Present: normal, normal turgor - Neurologic Neurologic: Present: CNII-XII intact - Psychiatric Psychiatric: Present: A&O x's 3, appropriate affect, intact judgment & insight - Labs CBC & Chem 7: 11/03/17 05:32 11/01/17 04:14 Labs: Abnormal Lab Results - Last 24 Hours (Table) 11/02/17 Range/Units 05:26 WBC 16.8 H (3.8-10.6) k/uL RBC 2.64 L (3.80-5.40) m/uL Hgb 8.3 L (11.4-16.0) gm/dL Hct 26.9 L (34.0-46.0) % MCV 102.0 H (80.0-100.0) fL MCHC 30.6 L (31.0-37.0) g/dL Plt Count 132 L (150-450) k/uL Neutrophils # (Manual) 1.01 L (1.3-7.7) k/uL Lymphocytes # (Manual) 15.79 H (1.0-4.8) k/uL Metamyelocytes # (Man) 0.17 H (0) k/uL Microbiology - Last 24 Hours (Table) 10/29/17 14:10 Gram Stain - Preliminary Pleural Fluid Body Fluid Culture - Preliminary Assessment and Plan Plan: 1. Hypotension secondary to a combination of dehydration and atrial fibrillation with RVR. 2. New onset atrial fibrillation with rapid ventricular response, converted to sinus rhythm. Cardiology consult is appreciated. IV Cardizem discontinued. Patient started on Lopressor. No anticoagulation in case patient needs thoracentesis.. 3. Acute hypoxic respiratory failure secondary to a large right-sided pleural effusion. Consult with Dr. Chavez. Status post right-sided thoracentesis. Continue oxygen therapy. Consult with cardiothoracic surgery for Pleurx catheter placement. 4. Chronic lymphocytic leukemia under the care of Dr Garcia. Patient is on Imbruvica. 5. Gastroesophageal reflux disease and GI prophylaxis. Continue omeprazole. 6. Hypertension. Continue amlodipine 5 mg daily. 7. Anemia of chronic disease. Continue ferrous sulfate. 8. Gout. Continue allopurinol. 9. General anxiety disorder and recurrent depression. Continue Ativan as needed and Celexa 20 mg daily. 10. Acute kidney failure with chronic kidney disease stage II. 11. Chemotherapy-induced bicytopenia, megalocytosis. Oncology is following. 12. DVT prophylaxis. KAMERON hose and SCDs. 13. 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 IVIG ordered by oncology. Discharge plan: Return home, patient may benefit from home care. Walker ordered by case management. Impression and plan of care have been directed as dictated by the signing physician. Maggi Watson nurse practitioner acting as scribe for signing physician.
[2017-11-03] MEDS: CHOLECALCIFEROL 1,000 UNIT TAB PO SCH ×2 (11:42→14:45)
[2017-11-03] MEDS: MULTIVITAMINS, THERA 1 EACH TAB PO SCH (11:43)
[2017-11-03] MEDS: FERROUS SULFATE 325 MG TAB PO SCH (11:43)
[2017-11-03] MEDS: CALCIUM CARB-VIT D 500MG-200UN 1 EACH TAB PO SCH (11:43)
--- NOTE | 2017-11-03 13:38 | P.PN ---
Subjective Progress Note Date: 11/03/17 Principal diagnosis: Large right-sided pleural effusion This is a very pleasant 76-year-old female patient who is with Dr. Yuen as her primary care physician. She has a history of hypertension, osteoarthritis, depression, previous smoking history. She also has a history of chronic lymphocytic leukemia and follows with Dr. Scherer for the same. She is on Imbruvica. She was seen yesterday at the oncology office and was found to be quite hypotensive. She was given a liter of fluid resuscitation without much improvement. She was quite fatigued and weak. She's also been having ongoing issues with shortness of breath. Her chest x-ray showed moderate to large right -sided pleural effusion with atelectasis. She was being set up for an outpatient thoracentesis along with IVIG treatment for next week however based on yesterday's finding she was admitted to the hospital. She was also found to be in atrial fibrillation with a rapid ventricular response which was new for the patient. She has since converted to sinus rhythm post-Cardizem drip. We are consulted for the large pleural effusion. An ultrasound of the chest shows a right-sided pocket of 7.9 cm. He is seen today in consultation on the active care unit. She is awake and alert in no acute distress. She is doing quite a bit better today as compared to yesterday. She is feeling stronger. She does have ongoing issues with shortness of breath on exertion. He is maintaining good O2 saturations in the 90s on 2 L/m per nasal cannula. Her blood pressure has recovered. She is hemodynamically stable. Afebrile. Results revealed WBC 14.1. Hemoglobin 10.0. Platelet count 172,000. Creatinine 1.20. ProBNP 874. Troponins negative 3. Reevaluated today on 10/30/2017, patient seems to be doing better, breathing a lot easier, the pleural effusion has a relatively high protein, this is more likely an exudative effusion. LDH is 139, remaining workup on the pleural effusion is pending. I did send the pleural effusion for cytology and flow cytometry. Reevaluated today on 10/31/2017, patient feels generally weak and tired, however not short of breath, not having any chest pain. Chest x-ray is showing reaccumulation of right pleural effusion, cardiology is addressing her intermittent episodes of atrial fibrillation with RVR. The cytology on the fluid is still pending, patient may require another thoracentesis, however based on the cytology, the patient may actually require a Pleurx catheter placement. Hence we'll wait until the cytology report comes back on this patient before any decision will be made regarding another thoracentesis or Pleurx catheter placement. Again the patient is not in any form of respiratory distress at this point, and no casas to repeat thoracentesis at this point yet. On 11/01/2017 patient seen in follow-up. She states her breathing is easier, denies any chest pain. She does feel that the fluid on the right is reaccumulating, but states the dyspnea, and the pressure not as severe as it was on presentation, she felt a rocklike sensation sitting on the chest. Today' s chest x-ray shows moderate to large right pleural effusion. Pleural fluid cytology from 10/29/2017 is still pending. She had 2000 mL of pleural fluid removed from the right pleural effusion on 10/29/[address] Roger. Pleural fluid analysis showed LDH of 139, fluid total protein was 2800, and the fluid is transudative. Pleural fluid cultures are still pending. She remains hemodynamically stable, she is on room air, with O2 sat at 92-93%. There are absent breath sounds over right lower lobe, clear breath sounds on the left. She remains afebrile. He was discussed with her that fluid cytology results will help determine course of further treatment. It is likely that she will need a Pleurx catheter view of rapid reaccumulation of right pleural fluid. On 11/02/2017 patient seen in follow-up. She states that she is slightly more dyspneic today compared to yesterday. Chest x-ray was reviewed, there is very minimal improvement in the moderate-sized right pleural effusion. Cytology of the pleural fluid is still pending at this time. Pleural fluid cultures are pending as well. She remains on room air, with O2 sat at 95%. Hemodynamically stable. She is afebrile. Lung sounds are positive for absent breath sounds over right lower lobe, clear on the left. Denies any chest pain, does have an occasional nonproductive dry cough. Today's lab work shows WBC of 16.8, hemoglobin is 8.3. She is awaiting to be seen by the cardiothoracic surgery in regards to placement of the right Pleurx catheter. On 11/03/2017 patient seen in follow-up. She states she had an episode of A. fib this morning and she was very symptomatic with it, she became very diaphoretic, felt very poorly, twelve-lead EKG showed sinus rhythm with bursts of A. fib. The episode was short-lived, and patient has spontaneously to return to his normal sinus rhythm. Today's chest x-ray showed moderate right- sided pleural effusion which is unchanged from previous exam. Pleural fluid flowing cytology are still pending. Patient is being evaluated for possible placement of Pleurx catheter by the CT surgery. Otherwise patient remains stable from prominent standpoint, she was placed on 2 L per nasal cannula, in view of this morning's episode, but on room air her O2 sat is 94%. She is afebrile, and hemodynamically stable. Her pleural fluid cultures remain negative so far. Today's labs showed a CBC of 6.7, hemoglobin is 8.5. Patient is sitting up in the chair, tolerating activity well. Lung sounds are positive for absent breath sounds over right lower lobe, clear on the left. Objective - Vital Signs Vital signs: Vital Signs Temp 97.7 F 11/03/17 11:40 Pulse 81 11/03/17 11:40 Resp 18 11/03/17 11:40 BP 91/55 11/03/17 11:40 Pulse Ox 94 L 11/03/17 08:00 Intake & Output 11/02/17 11/03/17 11/03/17 18:59 06:59 18:59 Intake Total 540 980 480 Output Total 650 Balance -110 980 480 Weight 68.5 kg 68.3 kg Intake: Intake, IV Titration 20 Amount Sodium Chloride 0.9% 1, 20 000 ml @ 20 mls/hr IV . Q24H [facility] Rx#:[id number] Oral 540 960 480 Output: Urine 650 Other: Voiding Method Toilet Toilet # Voids 2 - Exam GENERAL EXAM: Pale, cachectic. Alert, fairly comfortable in no apparent distress. HEAD: Normocephalic. EYES: Normal reaction of pupils, equal size. NOSE: Clear with pink turbinates. THROAT: No erythema or exudates. NECK: No masses, no JVD. CHEST: No chest wall deformity. LUNGS: Absent breath sounds and dullness at the right base, clear breath sounds on the left CVS: Irregular irregular rhythm, S1 and S2 normal with no audible murmur, regular rhythm. ABDOMEN: No hepatosplenomegaly, normal bowel sounds, no guarding or rigidity. SPINE: Kyphoscoliosis SKIN: No rashes CENTRAL NERVOUS SYSTEM: No focal deficits, tone is normal in all 4 extremities. EXTREMITIES: There is no peripheral edema. No clubbing, no cyanosis. Peripheral pulses are intact. - Labs CBC & Chem 7: 11/03/17 05:32 11/01/17 04:14 Labs: Abnormal Lab Results - Last 24 Hours (Table) 11/03/17 Range/Units 05:32 RBC 2.75 L (3.80-5.40) m/uL Hgb 8.5 L (11.4-16.0) gm/dL Hct 28.1 L (34.0-46.0) % MCV 102.4 H (80.0-100.0) fL MCHC 30.3 L (31.0-37.0) g/dL Plt Count 100 L (150-450) k/uL Neutrophils # (Manual) 0.20 L (1.3-7.7) k/uL Lymphocytes # (Manual) 6.43 H (1.0-4.8) k/uL Microbiology - Last 24 Hours (Table) 10/29/17 14:10 Anaerobic Culture - Final Pleural Fluid 10/29/17 14:10 Gram Stain - Final Pleural Fluid Body Fluid Culture - Final Assessment and Plan Plan: Assessment: #1 Hypotension secondary to dehydration. Recovered. #2 Acute hypoxic respiratory failure secondary to recurrent right pleural effusion status post right thoracentesis on 10/29/2017 with removal of 2000 mL of serosanguineous pleural fluid. Patient recovered, currently on room air, maintaining O2 sat at 95%. #3 Chronic lymphocytic leukemia currently receiving Imbruvica. #4 new-onset atrial fibrillation, currently in normal sinus rhythm. #5 History of arthritis. #6 History of hypertension. Recommendation: Patient did have an episode of A. fib RVR this a.m. during which patient was very symptomatic, diaphoretic, short of breath, and overall feeling very poorly. This has spontaneously resolved, patient is back in sinus rhythm. She denies any acute dyspnea, although she does feel that the right pleural fluid is reaccumulating. Still awaiting the results of pleural fluid cytology and flow. Patient did receive a dose of Gammagard for hypogammaglobulinimea. Otherwise continue with current medical treatment. I performed a history & physical examination of the patient and discussed their management with my nurse practitioner, Yue Rodriguez. I reviewed the nurse practitioner's note and agree with the documented findings and plan of care. Lung sounds are positive for absent breath sounds over right lower lobe, clear lung sounds on the left. The findings and the impression was discussed with the patient. I attest to the documentation by the nurse practitioner. Time with Patient: Less than 30
--- NOTE | 2017-11-03 14:00 | P.PN ---
Subjective Progress Note Date: 11/03/17 This is a 76-year-old female patient of Dr. Yuen and Dr. Garcia with past medical history significant for CLL, hypertension, osteoarthritis, ITP. A Chin gives history that she has been treated for pneumonia about [address] Yuen and placed on antibiotic. She underwent a CAT scan at [facility] and was then placed on another course of antibiotics and also steroids. During this time she also was started on water pills possibly by Dr. Garcia. She was known to have a right-sided pleural effusion. Patient was at Dr. Garcia's office yesterday and her blood pressure was low. She received IV fluids the blood pressure continued to be low and she was sent to [facility] emergency center for evaluation. Patient states that she did have a cough that was nonproductive but this is resolved. She does complain of weakness but no lightheadedness or dizziness. She denies any dysuria. She states that she cannot get enough air and she has been very short of breath. She had a chest x-ray that shows moderate to large right-sided pleural effusion. There could be underlying adjacent atelectasis and/or consolidation. White count was 14.1, hemoglobin 10, platelet count 172, potassium 3.2, BUN 23 and creatinine 1.13. Troponin was 0.016. Total bilirubin 2.4 and liver enzymes within normal limits. ProBNP 874. Patient was found to be in atrial fibrillation with RVR running in the 120s which is new onset. Daughter states the patient has had a 30 pound weight loss since August. She has not eating well and in general not feeling good. Ensure has been ordered. Patient is also scheduled for IVIG next week which she receives about 2 times per year.\ 10/30: Patient underwent large-volume thoracenteses of over 2 L on the right lung on 10/29/2017, patient has improved dyspnea, dyspnea improving, patient denies any chest discomfort or palpitations. Oxygen saturations improving, Pleural effusion sent for cytology and cultures, exudative effusion is suspected anticoagulation for A. fib is still on hold, awaiting final plans for possible repeat thoracentesis in the future 10/31: Patient is clinically better without any significant shortness of breath, patient did not have any PND last night,events, no hypoxemia, patient's chest x- ray seems to be worse compared to previous, pulmonary is following closely, awaiting final cytologies, patient might need repeat thoracenteses vs pleurx catheter placement 11/01: Chest x-ray from yesterday showed worsening effusion. Will ask for cardiothoracic consult to evaluate for Pleurx catheter. Repeat chest x-ray ordered today. Prescription has been signed for walker for home. 11/02: Repeat chest x-ray shows minimal improvement in the moderate right pleural effusion and right-sided airspace disease likely compressive atelectasis. Patient has been seen by cardiothoracic surgery. Cytology report remains pending. Patient is scheduled for IVIG by oncology. Patient feels like her breathing is a little better from yesterday. 11/03: Repeat chest x-ray shows moderate right-sided pleural effusion persists and is essentially unchanged. Underlying infiltrate, mass or atelectasis not excluded. Cytology report remains pending. Pulse ox is 94% on room air. Heart rate this morning was elevated at 152 the patient remains in a sinus rhythm and repeat HR improved. Patient states that she feels the lung is siu again as she has an odd sensation when she swallows. No dysphagia or choking. Objective - Vital Signs Vital signs: Vital Signs Temp 98.2 F 11/03/17 04:00 Pulse 152 H 11/03/17 08:00 Resp 18 11/03/17 08:00 BP 114/63 11/03/17 08:00 Pulse Ox 94 L 11/03/17 08:00 Intake & Output 11/02/17 11/03/17 11/03/17 18:59 06:59 18:59 Intake Total 540 980 240 Output Total 650 Balance -110 980 240 Weight 68.5 kg 68.3 kg Intake: Intake, IV Titration 20 Amount Sodium Chloride 0.9% 1, 20 000 ml @ 20 mls/hr IV . Q24H [facility] Rx#:[id number] Oral 540 960 240 Output: Urine 650 Other: Voiding Method Toilet Toilet # Voids 2 - Exam General appearance: Present: average body habitus, cooperative, no acute distress. Absent: disheveled, mild distress, morbidly obese, obese, severe distress, thin - EENT Eyes: Present: anicteric sclerae, EOMI, PERRLA, dentition normal, normal appearance. Absent: abnormal pupil, disc margins sharp, edentulous, fundus normal, photophobia, poor dentition, ptosis, scleral icterus ENT: Present: NA/AT, normal oropharynx - Neck Neck: Present: normal ROM - Respiratory Respiratory: right: diminished, dullness, left: CTA, negative: rales, rhonchi, wheezing, prolonged expiration, prolonged inspiration - Cardiovascular Rhythm: regular Heart sounds: normal: S1, S2 - Gastrointestinal General gastrointestinal: Present: normal bowel sounds, soft - Integumentary Integumentary: Present: normal, normal turgor - Neurologic Neurologic: Present: CNII-XII intact - Psychiatric Psychiatric: Present: A&O x's 3, appropriate affect, intact judgment & insight - Labs CBC & Chem 7: 11/03/17 05:32 11/01/17 04:14 Labs: Abnormal Lab Results - Last 24 Hours (Table) 11/03/17 Range/Units 05:32 RBC 2.75 L (3.80-5.40) m/uL Hgb 8.5 L (11.4-16.0) gm/dL Hct 28.1 L (34.0-46.0) % MCV 102.4 H (80.0-100.0) fL MCHC 30.3 L (31.0-37.0) g/dL Plt Count 100 L (150-450) k/uL Neutrophils # (Manual) 0.20 L (1.3-7.7) k/uL Lymphocytes # (Manual) 6.43 H (1.0-4.8) k/uL Microbiology - Last 24 Hours (Table) 10/29/17 14:10 Anaerobic Culture - Final Pleural Fluid 10/29/17 14:10 Gram Stain - Final Pleural Fluid Body Fluid Culture - Final Assessment and Plan Plan: 1. Hypotension secondary to a combination of dehydration and atrial fibrillation with RVR. 2. New onset atrial fibrillation with rapid ventricular response, converted to sinus rhythm. Cardiology consult is appreciated. IV Cardizem discontinued. Patient started on Lopressor. No anticoagulation in case patient needs thoracentesis.. 3. Acute hypoxic respiratory failure secondary to a large right-sided pleural effusion. Consult with Dr. Chavez. Status post right-sided thoracentesis. Continue oxygen therapy. Consult with cardiothoracic surgery for Pleurx catheter placement. 4. Chronic lymphocytic leukemia under the care of Dr Garcia. Patient is on Imbruvica. 5. Gastroesophageal reflux disease and GI prophylaxis. Continue omeprazole. 6. Hypertension. Continue amlodipine 5 mg daily. 7. Anemia of chronic disease. Continue ferrous sulfate. 8. Gout. Continue allopurinol. 9. General anxiety disorder and recurrent depression. Continue Ativan as needed and Celexa 20 mg daily. 10. Acute kidney failure with chronic kidney disease stage II. 11. Chemotherapy-induced bicytopenia, megalocytosis. Oncology is following. 12. DVT prophylaxis. KAMERON hose and SCDs. 13. 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 IVIG ordered by oncology. Discharge plan: Return home, patient may benefit from home care. Walker ordered by case management. Impression and plan of care have been directed as dictated by the signing physician. Maggi Watson nurse practitioner acting as scribe for signing physician.
[2017-11-03] MEDS: SODIUM CHLORIDE 0.9% 1,000 ML IV SCH (17:42)
[2017-11-03] MEDS: diphenhydrAMINE 25 MG CAP PO PRN (19:40)
[2017-11-03] MEDS: MONTELUKAST 10 MG TAB PO SCH (19:41)
[2017-11-03] MEDS: ALLOPURINOL 100 MG TAB PO SCH (19:41)
[2017-11-03] MEDS: LORazepam 0.5 MG TAB PO PRN (22:04)
[2017-11-04 06:21] LABS: HCT 30.2 % (34.0-46.0); HGB 9.1 gm/dL (11.4-16.0); Hypochromasia Moderate; MCH 30.7 pg (25.0-35.0); MCV 102.1 fL (80.0-100.0); Macrocytosis Slight; Mean Platelet Volume 9.2; Platelet Count 106 k/uL (150-450); Poikilocytosis Slight; RBC 2.95 m/uL (3.80-5.40); RDW 15.4 % (11.5-15.5); WBC 5.8 k/uL (3.8-10.6)
[2017-11-04 06:28] LABS: Anion Gap 8 mmol/L; Blood Urea Nitrogen 15 mg/dL (7-17); Calcium 8.7 mg/dL (8.4-10.2); Carbon Dioxide 20 mmol/L (22-30); Chloride 114 mmol/L (98-107); Glucose 113 mg/dL (74-99); Potassium 3.5 mmol/L (3.5-5.1); Sodium 142 mmol/L (137-145)
[2017-11-04] MEDS: PANTOPRAZOLE 40 MG TABLET PO SCH (06:31)
--- NOTE | 2017-11-04 06:36 | XR ---
EXAMINATION TYPE: XR chest 2V DATE OF EXAM: 11/04/2017 COMPARISON: Chest x-ray from yesterday and older studies. Ultrasound October 29, 2017 HISTORY: Diminished breath sounds. Fluid on lungs. TECHNIQUE: Frontal and lateral views of the chest are obtained. FINDINGS: There is persistent moderate to large size right pleural effusion with associated right mi dlung atelectasis. Left lung remains clear. No mediastinal shift is present. The cardiac silhouette size remains within normal limits with atherosclerotic thoracic aorta. Underlying scoliosis is redemo nstrated. IMPRESSION: Persistent moderate to large size right pleural effusion. No significant change from one day earlier.
[2017-11-04 06:41] LABS: Eosinophils # (M) 0.06 k/uL (0-0.7); Lymphocytes # (M) 4.76 k/uL (1.0-4.8); Monocytes # (M) 0.17 k/uL (0-1.0); Neutrophils # (M) 0.87 k/uL (1.3-7.7); Neutrophils % (M) 15 %; Nucleated Red Blood Cells 0 /100 WBC (0-0); Total Cells Counted 200
[2017-11-04] MEDS: CALCIUM CARB-VIT D 500MG-200UN 1 EACH TAB PO SCH (09:17)
[2017-11-04] MEDS: CHOLECALCIFEROL 1,000 UNIT TAB PO SCH (09:17)
[2017-11-04] MEDS: FERROUS SULFATE 325 MG TAB PO SCH (09:17)
[2017-11-04] MEDS: MULTIVITAMINS, THERA 1 EACH TAB PO SCH (09:17)
[2017-11-04] MEDS: amLODIPine 5 MG TAB PO SCH (09:17)
[2017-11-04] MEDS: METOPROLOL TARTRATE 25 MG TAB PO SCH ×3 (09:17→20:34)
[2017-11-04] MEDS: CITALOPRAM HYDROBROMIDE 20 MG TAB PO SCH (09:18)
--- NOTE | 2017-11-04 10:41 | P.PN ---
Subjective Progress Note Date: 11/04/17 Principal diagnosis: Right pleural effusion Progress note dated 11/04/2017 This is a 76-year-old female who was initially admitted with a diagnosis of hypotension, secondary to dehydration. That has improved. In addition, she has a history of acute hypoxemic respiratory failure secondary to a large right- sided pleural effusion which has been recurrent. She did have a large-volume thoracentesis performed on the in 2 L was removed. The fluid was sent for cytologic evaluation and did get back positive showing lymphocytes consistent with her diagnosis of chronic lymphocytic leukemia. Hence, I think the proper treatment for her would include a Pleurx catheter. Thoracentesis would only solved to palliate the problem and the fluid will return each time. We'll make sure that cardiothoracic know about that. In addition, the patient does have a history of atrial fibrillation and arthritis and hypertension. Objective - Vital Signs Vital signs: Vital Signs Temp 97.7 F 11/04/17 09:21 Pulse 94 11/04/17 09:21 Resp 19 11/04/17 09:21 BP 107/54 11/04/17 09:21 Pulse Ox 92 L 11/04/17 09:21 Intake & Output 11/03/17 11/04/17 11/04/17 18:59 06:59 18:59 Intake Total 720 520 Output Total 800 100 Balance -80 420 Weight 68 kg Intake: Intake, IV Titration 40 Amount Sodium Chloride 0.9% 1, 40 000 ml @ 20 mls/hr IV . Q24H COUNT INCLUDES THE [facility] Rx#:[id number] Oral 720 480 Output: Urine 800 100 Other: Voiding Method Toilet Toilet # Voids 1 - Exam No acute distress, oriented 3. HEENT examination is grossly unremarkable. Mucous membranes are moist. No oral lesions. Neck supple. Full range of motion. No adenopathy thyromegaly or neck vein distention. Cardiovascular examination reveals irregular rhythm rate. S1-S2 normal. No S3 or S4. No discernible murmur noted. Lungs reveal diminished breath sounds and dullness at the right lung base. Abdomen soft bowel sounds are heard. No masses or tenderness. Extremities are intact. No cyanosis clubbing or edema. Skin is without rash or lesion. Neurologic examination is brief but nonfocal. - Labs CBC & Chem 7: 11/04/17 05:45 11/04/17 05:45 Labs: Abnormal Lab Results - Last 24 Hours (Table) 11/04/17 11/04/17 Range/Units 05:45 05:45 RBC 2.95 L (3.80-5.40) m/uL Hgb 9.1 L (11.4-16.0) gm/dL Hct 30.2 L (34.0-46.0) % MCV 102.1 H (80.0-100.0) fL MCHC 30.0 L (31.0-37.0) g/dL Plt Count 106 L (150-450) k/uL Neutrophils # (Manual) 0.87 L (1.3-7.7) k/uL Chloride 114 H (98-107) mmol/L Carbon Dioxide 20 L (22-30) mmol/L Glucose 113 H (74-99) mg/dL Assessment and Plan Assessment: Assessment Hypotension, secondary to dehydration, resolved. Hypoxemic respiratory failure, in large part due to a large right-sided pleural effusion, status post large-volume thoracentesis Recurrent right-sided pleural effusion, positive cytologically for lymphocytes consistent with the patient's known diagnosis of CLL History of atrial fibrillation History of hypertension History of arthritis Plan: Plan dated 11/04/2017 We will ask cardiothoracic surgeons to place a Pleurx catheter and to the right pleural space. I believe long-term, that will be the best way to manage this fluid. Her previous thoracentesis was done on October 29. The fluid has returned rather quickly. She becomes quite symptomatic. We'll continue to follow. Time with Patient: Less than 30
[2017-11-04] MEDS: ONDANSETRON 4 MG/2 ML VIAL IVP PRN (11:15)
--- NOTE | 2017-11-04 12:15 | P.PN ---
Subjective Progress Note Date: 11/04/17 Principal diagnosis: Right pleural effusion, chronic lymphocytic leukemia, hypertension, osteoarthritis, depression, remote history of smoking, history of kidney stones , vitamin D deficiency, GERD, macular degeneration, new onset paroxysmal atrial fibrillation and ITP. The patient is currently sitting up to the edge of the bed. She is in no acute distress. Her daughter Shelia is at her bedside with questions. Questions answered to the best my ability. Oxygen saturation are 92% on room air. Dr. Killian discussed with the patient and her daughter about the plan for Pleurx catheter placement tomorrow 11/05/2017. She is complaining of decreased appetite and weakness. She reports that she is not eating much. Objective - Vital Signs Vital signs: Vital Signs Temp 97.7 F 11/04/17 09:21 Pulse 94 11/04/17 09:21 Resp 19 11/04/17 09:21 BP 107/54 11/04/17 09:21 Pulse Ox 92 L 11/04/17 09:21 Intake & Output 11/03/17 11/04/17 11/04/17 18:59 06:59 18:59 Intake Total 720 520 Output Total 800 100 Balance -80 420 Weight 68 kg Intake: Intake, IV Titration 40 Amount Sodium Chloride 0.9% 1, 40 000 ml @ 20 mls/hr IV . Q24H [facility] Rx#:[id number] Oral 720 480 Output: Urine 800 100 Other: Voiding Method Toilet Toilet # Voids 1 2 - Constitutional Constitutional Comment(s): Cachectic General appearance: Present: cooperative, no acute distress, thin - EENT ENT: Present: hard of hearing - Neck Details: No JVD, no lymphadenopathy. Neck is supple. - Respiratory Details: Lung sounds are essentially clear throughout, diminished to her right lobes. Respirations are symmetrical and nonlabored. She is currently on room air oxygen saturations 92%. She is achieving 1000 L on her incentive spirometry. - Cardiovascular Details: Regular rhythm and rate. S1 and S2 present, negative for S3, gallop or murmur. Remote telemetry showing normal sinus rhythm heart rate 94. No edema present. - Gastrointestinal Gastrointestinal Comment(s): Abdomen is soft, nontender and nondistended. Active bowel sounds all 4 abdominal quadrants. No appetite. - Genitourinary Genitourinary Comment(s): Urine output adequate, ambulating to the bathroom with assistance. - Integumentary Integumentary Comment(s): Skin is warm, dry and intact. No rashes or growths. - Neurologic Neurologic: Present: CNII-XII intact - Musculoskeletal Musculoskeletal: Present: gait normal, generalized weakness, strength equal bilaterally - Psychiatric Psychiatric: Present: A&O x's 3, appropriate affect, intact judgment & insight - Allied health notes Allied health notes reviewed: nursing - Labs CBC & Chem 7: 11/04/17 05:45 11/04/17 05:45 Labs: Abnormal Lab Results - Last 24 Hours (Table) 11/04/17 11/04/17 Range/Units 05:45 05:45 RBC 2.95 L (3.80-5.40) m/uL Hgb 9.1 L (11.4-16.0) gm/dL Hct 30.2 L (34.0-46.0) % MCV 102.1 H (80.0-100.0) fL MCHC 30.0 L (31.0-37.0) g/dL Plt Count 106 L (150-450) k/uL Neutrophils # (Manual) 0.87 L (1.3-7.7) k/uL Chloride 114 H (98-107) mmol/L Carbon Dioxide 20 L (22-30) mmol/L Glucose 113 H (74-99) mg/dL - Imaging and Cardiology Chest x-ray: report reviewed, image reviewed Assessment and Plan (1) Pleural effusion, right Current Visit: Yes Status: Acute Priority: High Code(s): J90 - PLEURAL EFFUSION, NOT ELSEWHERE CLASSIFIED SNOMED Code(s): 36131509 (2) History of ITP Current Visit: No Status: Chronic Code(s): Z86.2 - PRSNL HISTORY OF DIS OF THE BLD/BLD-FORM ORG/IMMUN [facility] SNOMED Code(s): 135543404 (3) History of hypertension Current Visit: Yes Status: Chronic Code(s): Z86.79 - PERSONAL HISTORY OF OTHER DISEASES OF THE CIRCULATORY SYSTEM SNOMED Code(s): 532637205 (4) Anemia Current Visit: Yes Status: Acute Priority: Medium Code(s): D64.9 - ANEMIA , UNSPECIFIED SNOMED Code(s): 545495274 (5) Atrial fibrillation with RVR Current Visit: Yes Status: Acute Code(s): I48.91 - UNSPECIFIED ATRIAL FIBRILLATION SNOMED Code(s): 689702943792245 (6) CLL (chronic lymphocytic leukemia) Current Visit: Yes Status: Chronic Priority: High Code(s): C91.90 - LYMPHOID LEUKEMIA, UNSPECIFIED NOT HAVING ACHIEVED REMISSION SNOMED Code(s): 58461123 (7) Weakness Current Visit: Yes Status: Acute Priority: Medium Code(s): R53.1 - WEAKNESS SNOMED Code(s): 35216416 Plan: 1. Atrial fibrillation management per cardiology. 2. Chronic lymphocytic leukemia management per oncology. 3. DVT and GI prophylaxis. 4. She will be scheduled for a right Pleurx catheter placement tomorrow 2017. Performed by Dr. Rohit Romo. 5. Medical management per primary care service. 6. Cytology pleural fluid showing positive result for chronic lymphocytic leukemia. 7. More recommendations to follow as patient progresses in her care. Time with Patient: Greater than 30
[2017-11-04 12:53] LABS: INR 1.3 (<1.2); Partial Thromboplastin Time 26.5 sec (22.0-30.0); Prothrombin Time 12.1 sec (9.0-12.0)
[2017-11-04] MEDS: ACETAMINOPHEN TAB 500 MG TAB PO PRN (13:57)
[2017-11-04] MEDS: SODIUM CHLORIDE 0.9% 1,000 ML IV SCH (16:22)
[2017-11-04] MEDS: MONTELUKAST 10 MG TAB PO SCH (20:34)
[2017-11-04] MEDS: ALLOPURINOL 100 MG TAB PO SCH (20:34)
[2017-11-05] MEDS: LORazepam 0.5 MG TAB PO PRN ×2 (03:36→20:20)
[2017-11-05] MEDS ORDERED: ONDANSETRON 4 MG/2 ML VIAL IVP ONE (05:36)
[2017-11-05] MEDS ORDERED: DEXAMETHASONE SOD PHOSPHATE 10 MG/ML 1 ML VIAL IV ONE (05:36)
[2017-11-05] MEDS ORDERED: fentaNYL (PF) 50 MCG/ML 20 ML VIAL IVP PRN (05:36)
[2017-11-05] MEDS: PANTOPRAZOLE 40 MG TABLET PO SCH (06:37)
[2017-11-05] MEDS: amLODIPine 5 MG TAB PO SCH (06:37)
[2017-11-05] MEDS: METOPROLOL TARTRATE 25 MG TAB PO SCH ×3 (06:38→20:14)
[2017-11-05] MEDS: CITALOPRAM HYDROBROMIDE 20 MG TAB PO SCH (06:38)
[2017-11-05 06:56] LABS: HCT 33.8 % (34.0-46.0); HGB 10.4 gm/dL (11.4-16.0); Hypochromasia Moderate; MCH 31.5 pg (25.0-35.0); MCHC 30.8 g/dL (31.0-37.0); MCV 102.1 fL (80.0-100.0); Macrocytosis Slight; Mean Platelet Volume 9.5; Platelet Count 104 k/uL (150-450); Poikilocytosis Slight; RBC 3.31 m/uL (3.80-5.40); RDW 15.1 % (11.5-15.5)
[2017-11-05 07:26] LABS: Calcium 8.8 mg/dL (8.4-10.2); Phosphorus 3.3 mg/dL (2.5-4.5); Potassium 3.8 mmol/L (3.5-5.1)
[2017-11-05] MEDS ORDERED: LIDOCAINE 1% 20 ML VIAL (10MG/ML) FOR IV START INTRADERMA ONE (07:27)
[2017-11-05] MEDS: LACTATED RINGERS 1,000 ML IV SCH (07:27)
[2017-11-05] MEDS: ONDANSETRON 4 MG/2 ML VIAL IVP PRN (07:28)
[2017-11-05] MEDS ORDERED: fentaNYL (PF) 50 MCG/ML 2 ML AMP ONE (07:55)
[2017-11-05] MEDS ORDERED: ceFAZolin 1,000 MG VIAL ONE (07:55)
[2017-11-05] MEDS ORDERED: PROPOFOL 10 MG/ML 20 ML VIAL IV ONE (07:55)
[2017-11-05] MEDS ORDERED: ceFAZolin IN SWFI 2 GM/20 ML SYRINGE IVP ONE (08:00)
[2017-11-05] MEDS ORDERED: ceFAZolin 2,000 MG in DEXTROSE/WATER 1 50ML.BAG IVPB ONE (08:00)
[2017-11-05] MEDS ORDERED: ceFAZolin 1,000 MG/50 ML BAG (PMX) IV ONE (08:05)
[2017-11-05] MEDS ORDERED: LIDOCAINE 1% INJ 10MG/ML (20 ML MDV) SQ ONE ×2 (08:22)
--- NOTE | 2017-11-05 08:27 | P.PN ---
Subjective Progress Note Date: 11/04/17 This is a 76-year-old female patient of Dr. Yuen and Dr. Garcia with past medical history significant for CLL, hypertension, osteoarthritis, ITP. A Chin gives history that she has been treated for pneumonia about [address] Yuen and placed on antibiotic. She underwent a CAT scan at [facility] and was then placed on another course of antibiotics and also steroids. During this time she also was started on water pills possibly by Dr. Garcia. She was known to have a right-sided pleural effusion. Patient was at Dr. Garcia's office yesterday and her blood pressure was low. She received IV fluids the blood pressure continued to be low and she was sent to [facility] emergency center for evaluation. Patient states that she did have a cough that was nonproductive but this is resolved. She does complain of weakness but no lightheadedness or dizziness. She denies any dysuria. She states that she cannot get enough air and she has been very short of breath. She had a chest x-ray that shows moderate to large right-sided pleural effusion. There could be underlying adjacent atelectasis and/or consolidation. White count was 14.1, hemoglobin 10, platelet count 172, potassium 3.2, BUN 23 and creatinine 1.13. Troponin was 0.016. Total bilirubin 2.4 and liver enzymes within normal limits. ProBNP 874. Patient was found to be in atrial fibrillation with RVR running in the 120s which is new onset. Daughter states the patient has had a 30 pound weight loss since August. She has not eating well and in general not feeling good. Ensure has been ordered. Patient is also scheduled for IVIG next week which she receives about 2 times per year.\ 10/30: Patient underwent large-volume thoracenteses of over 2 L on the right lung on 10/29/2017, patient has improved dyspnea, dyspnea improving, patient denies any chest discomfort or palpitations. Oxygen saturations improving, Pleural effusion sent for cytology and cultures, exudative effusion is suspected anticoagulation for A. fib is still on hold, awaiting final plans for possible repeat thoracentesis in the future 10/31: Patient is clinically better without any significant shortness of breath, patient did not have any PND last night,events, no hypoxemia, patient's chest x- ray seems to be worse compared to previous, pulmonary is following closely, awaiting final cytologies, patient might need repeat thoracenteses vs pleurx catheter placement 11/01: Chest x-ray from yesterday showed worsening effusion. Will ask for cardiothoracic consult to evaluate for Pleurx catheter. Repeat chest x-ray ordered today. Prescription has been signed for walker for home. 11/02: Repeat chest x-ray shows minimal improvement in the moderate right pleural effusion and right-sided airspace disease likely compressive atelectasis. Patient has been seen by cardiothoracic surgery. Cytology report remains pending. Patient is scheduled for IVIG by oncology. Patient feels like her breathing is a little better from yesterday. 11/03: Repeat chest x-ray shows moderate right-sided pleural effusion persists and is essentially unchanged. Underlying infiltrate, mass or atelectasis not excluded. Cytology report remains pending. Pulse ox is 94% on room air. Heart rate this morning was elevated at 152 the patient remains in a sinus rhythm and repeat HR improved. Patient states that she feels the lung is siu again as she has an odd sensation when she swallows. No dysphagia or choking. 11/04: Right pleural fluid pathology report is consistent with chronic lymphocytic leukemia. Repeat chest x-ray shows persistent moderate to large sized pleural effusion on the right. No significant change from one day earlier. Cardiothoracic surgery is planning for Pleurx catheter placement tomorrow. Patient has had decreased appetite we are changing her diet to regular diet and patient family may bring food into her. She did have some nausea and vomiting this morning for which Zofran was ordered. Patient is complaining of chills. Objective - Vital Signs Vital signs: Vital Signs Temp 97.7 F 11/04/17 09:21 Pulse 94 11/04/17 09:21 Resp 19 11/04/17 09:21 BP 107/54 11/04/17 09:21 Pulse Ox 92 L 11/04/17 09:21 Intake & Output 11/03/17 11/04/17 11/04/17 18:59 06:59 18:59 Intake Total 720 520 Output Total 800 100 Balance -80 420 Weight 68 kg Intake: Intake, IV Titration 40 Amount Sodium Chloride 0.9% 1, 40 000 ml @ 20 mls/hr IV . Q24H [facility] Rx#:[id number] Oral 720 480 Output: Urine 800 100 Other: Voiding Method Toilet Toilet # Voids 1 - Exam General appearance: Present: average body habitus, cooperative, no acute distress. Absent: disheveled, mild distress, morbidly obese, obese, severe distress, thin - EENT Eyes: Present: anicteric sclerae, EOMI, PERRLA, dentition normal, normal appearance. Absent: abnormal pupil, disc margins sharp, edentulous, fundus normal, photophobia, poor dentition, ptosis, scleral icterus ENT: Present: NA/AT, normal oropharynx - Neck Neck: Present: normal ROM - Respiratory Respiratory: right: diminished, dullness, left: CTA, negative: rales, rhonchi, wheezing, prolonged expiration, prolonged inspiration - Cardiovascular Rhythm: regular Heart sounds: normal: S1, S2 - Gastrointestinal General gastrointestinal: Present: normal bowel sounds, soft - Integumentary Integumentary: Present: normal, normal turgor - Neurologic Neurologic: Present: CNII-XII intact - Psychiatric Psychiatric: Present: A&O x's 3, appropriate affect, intact judgment & insight - Labs CBC & Chem 7: 11/05/17 06:05 11/05/17 06:05 Labs: Abnormal Lab Results - Last 24 Hours (Table) 11/04/17 11/04/17 Range/Units 05:45 05:45 RBC 2.95 L (3.80-5.40) m/uL Hgb 9.1 L (11.4-16.0) gm/dL Hct 30.2 L (34.0-46.0) % MCV 102.1 H (80.0-100.0) fL MCHC 30.0 L (31.0-37.0) g/dL Plt Count 106 L (150-450) k/uL Neutrophils # (Manual) 0.87 L (1.3-7.7) k/uL Chloride 114 H (98-107) mmol/L Carbon Dioxide 20 L (22-30) mmol/L Glucose 113 H (74-99) mg/dL Assessment and Plan Plan: 1. Hypotension secondary to a combination of dehydration and atrial fibrillation with RVR. 2. New onset atrial fibrillation with rapid ventricular response, converted to sinus rhythm. Cardiology consult is appreciated. IV Cardizem discontinued. Patient started on Lopressor. No anticoagulation in case patient needs thoracentesis.. 3. Acute hypoxic respiratory failure secondary to a large right-sided pleural effusion. Consult with Dr. Chavez. Status post right-sided thoracentesis. Continue oxygen therapy. Consult with cardiothoracic surgery for Pleurx catheter placement to be done on November 05. 4. Chronic lymphocytic leukemia under the care of Dr Garcia. Patient is on Imbruvica. 5. Gastroesophageal reflux disease and GI prophylaxis. Continue omeprazole. 6. Hypertension. Continue amlodipine 5 mg daily. 7. Anemia of chronic disease. Continue ferrous sulfate. 8. Gout. Continue allopurinol. 9. General anxiety disorder and recurrent depression. Continue Ativan as needed and Celexa 20 mg daily. 10. Acute kidney failure with chronic kidney disease stage II. 11. Chemotherapy-induced bicytopenia, megalocytosis. Oncology is following. 12. DVT prophylaxis. KAMERON geovannie and SCDs. 13. 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 IVIG ordered by oncology. Discharge plan: Return home, patient may benefit from home care. Walker ordered by case management. Impression and plan of care have been directed as dictated by the signing physician. Maggi Watson nurse practitioner acting as scribe for signing physician.
[2017-11-05 08:29] LABS: Eosinophils # (M) 0.07 k/uL (0-0.7); Metamyelocytes # (M) 0.07 k/uL (0); Metamyelocytes % 1 %; Monocytes # (M) 0.14 k/uL (0-1.0); Neutrophils # (M) 1.19 k/uL (1.3-7.7); Neutrophils % (M) 17 %; Nucleated Red Blood Cells 0 /100 WBC (0-0); Total Cells Counted 200
[2017-11-05 08:32] LABS: Ovalocytes Present
--- NOTE | 2017-11-05 09:14 | OP ---
OPERATIVE REPORT DATE OF THE PROCEDURE: 11/05/2017. SURGEON: Dr. Rohit Romo. PREOPERATIVE DIAGNOSIS: Recurrent right pleural malignant effusion due to chronic lymphocytic leukemia. POSTOPERATIVE DIAGNOSIS: Recurrent right pleural malignant effusion due to chronic lymphocytic leukemia. PROCEDURE: Insertion of a right PleurX catheter. INDICATION FOR SURGERY: The patient is a 76-year-old lady with a diagnosis of chronic lymphocytic leukemia who presents with shortness of breath and a large right-sided pleural effusion. This was drained by Pulmonary and the results were consistent with chronic lymphocytic leukemia. Discussion followed with the oncologist and decision was made to proceed with a right PleurX catheter. The evident increased risk of infection in view of her primary diagnosis were discussed with the patient and her daughter who is a nurse. I understood them and agreed to proceed. DESCRIPTION OF PROCEDURE: The patient was brought to the operating room and intravenous sedation was administered. The chest and right upper quadrant were prepped and draped using ChloraPrep. Ioban was not used. Initially, local anesthesia was secured with a lidocaine 1% with a total of 10 mL used for the case. Access to the right pleural cavity was done with the finding needle and we had a reina affluent. At this point, the tunnel from the access point, which was at the mid axillary line of the 4th intercostal space to the right upper quadrant was anesthetized and 1 incision at the right upper quadrant and another counter incision after inserting a wire into the chest via Seldinger technique was performed. The PleurX catheter was tunneled and a dilator then a peel-away sheath were introduced in the pleural access site and the dilator and the wire withdrawn and the catheter pushed into the peel-away sheath that was withdrawn. The catheter went in without torsion and with no kinking. We proved good position by connecting the catheter to a negative pressure bottle and we drained a total of 2 L. The exit site was closed with a silk 2-0 that was used to secure the catheter also. The pleural access site was closed with 2-0 Vicryl subcutaneous and skin glue. The patient tolerated procedure well, was transferred to recovery room in stable condition. MMODL / IJN: [id number] /
--- NOTE | 2017-11-05 09:25 | XR ---
EXAMINATION TYPE: XR chest 1V portable DATE OF EXAM: 11/05/2017 CLINICAL HISTORY: Pleural catheter insertion. TECHNIQUE: Single AP portable upright view of the chest is obtained. COMPARISON: Chest x-ray from one day earlier FINDINGS: There is new right-sided basilar pleural drainage catheter with 5 ports, 3 are within pleu ral space, two are external. There is marked interval improvement in right basilar opacity. Some resi dual right basilar linear atelectasis is identified. Left lung remains clear. No mediastinal shift is evident. Cardiac silhouette size is stable and within normal limits with atherosclerotic thoracic ao rta. Degenerative change right acromioclavicular joint is noted. Underlying scoliosis is redemonstrat ed. IMPRESSION: Interval placement of basilar drainage catheter as detailed above with marked improvement in right-sided effusion.
[2017-11-05] MEDS: ACETAMINOPHEN TAB 500 MG TAB PO PRN ×2 (10:13→16:53)
--- NOTE | 2017-11-05 12:06 | P.PN ---
Subjective Progress Note Date: 11/05/17 Principal diagnosis: Right pleural effusion Progress note dated 11/04/2017 This is a 76-year-old female who was initially admitted with a diagnosis of hypotension, secondary to dehydration. That has improved. In addition, she has a history of acute hypoxemic respiratory failure secondary to a large right- sided pleural effusion which has been recurrent. She did have a large-volume thoracentesis performed on the in 2 L was removed. The fluid was sent for cytologic evaluation and did get back positive showing lymphocytes consistent with her diagnosis of chronic lymphocytic leukemia. Hence, I think the proper treatment for her would include a Pleurx catheter. Thoracentesis would only solved to palliate the problem and the fluid will return each time. We'll make sure that cardiothoracic know about that. In addition, the patient does have a history of atrial fibrillation and arthritis and hypertension. Progress note dated 11/05/2017 This is a 76-year-old female who was initially admitted with a diagnosis of hypotension secondary to dehydration. That has improved. In addition, she has a history of hypoxemic respiratory failure in part related to a large right- sided pleural effusion. My partner did do a large-volume thoracentesis on the and removed about 2 L of fluid. The cytology came back consistent with her known diagnosis of chronic lymphocytic. For that reason, we asked thoracic surgery to put a Pleurx catheter in. They did do that today. Her chest x-ray post Pleurx catheter placement looks good. 3 of the 5 ports are within the pleural space. The right-sided pleural effusion is substantially decreased. She looks pretty comfortable although she is a little sore. She should do reasonably well. She does have a history of atrial fibrillation arthritis and hypertension. Objective - Vital Signs Vital signs: Vital Signs Temp 97.5 F L 11/05/17 09:50 Pulse 65 11/05/17 09:22 Resp 18 11/05/17 09:50 BP 87/53 11/05/17 09:50 Pulse Ox 94 L 11/05/17 09:50 Intake & Output 11/04/17 11/05/17 11/05/17 18:59 06:59 18:59 Intake Total 100 120 675 Output Total 300 2 Balance 100 -180 673 Weight 68 kg Intake: IV 675 Oral 100 120 Output: Urine 300 Estimated Blood Loss 2 Other: Voiding Method Toilet Toilet Toilet # Voids 2 1 - Exam No acute distress, oriented 3. HEENT examination is grossly unremarkable. Mucous membranes are moist. No oral lesions. Neck supple. Full range of motion. No adenopathy thyromegaly or neck vein distention. Cardiovascular examination reveals irregular rhythm rate. S1-S2 normal. No S3 or S4. No discernible murmur noted. Lungs reveal improved breath sounds in the right lung. No wheezes. No crackles. Minimal rhonchi. Abdomen soft bowel sounds are heard. No masses or tenderness. Extremities are intact. No cyanosis clubbing or edema. Skin is without rash or lesion. Neurologic examination is brief but nonfocal. - Labs CBC & Chem 7: 11/05/17 06:05 11/05/17 06:05 Labs: Abnormal Lab Results - Last 24 Hours (Table) 11/04/17 11/05/17 11/05/17 Range/Units 12:14 06:05 06:05 RBC 3.31 L (3.80-5.40) m/uL Hgb 10.4 L (11.4-16.0) gm/dL Hct 33.8 L (34.0-46.0) % MCV 102.1 H (80.0-100.0) fL MCHC 30.8 L (31.0-37.0) g/dL Plt Count 104 L (150-450) k/uL Neutrophils # (Manual) 1.19 L (1.3-7.7) k/uL Lymphocytes # (Manual) 5.60 H (1.0-4.8) k/uL Metamyelocytes # (Man) 0.07 H (0) k/uL PT 12.1 H (9.0-12.0) sec INR 1.3 H (<1.2) Chloride 114 H (98-107) mmol/L Carbon Dioxide 20 L (22-30) mmol/L BUN 21 H (7-17) mg/dL Creatinine 1.84 H (0.52-1.04) mg/dL Glucose 100 H (74-99) mg/dL Assessment and Plan Assessment: Assessment Hypotension, secondary to dehydration, resolved. Hypoxemic respiratory failure, in large part due to a large right-sided pleural effusion, status post large-volume thoracentesis, and today, the patient had a Pleurx catheter placed in the right pleural space (11/05/2017) Recurrent right-sided pleural effusion, positive cytologically for lymphocytes consistent with the patient's known diagnosis of CLL History of atrial fibrillation History of hypertension History of arthritis Plan: Plan dated 11/04/2017 We will ask cardiothoracic surgeons to place a Pleurx catheter and to the right pleural space. I believe long-term, that will be the best way to manage this fluid. Her previous thoracentesis was done on October 29. The fluid has returned rather quickly. She becomes quite symptomatic. We'll continue to follow. Plan dated 11/05/2017 The patient should do much better. The Pleurx catheter was placed today by thoracic surgery. The right pleural space is almost completely free of fluid. Although the patient's sore, this will be a better outcome for the patient will provide her with additional relief. Otherwise, she would have to have repeated thoracentesis over and over. Hopeful discharge soon. Additional recommendations are made. Time with Patient: Less than 30
--- NOTE | 2017-11-05 12:24 | P.PN ---
Subjective Progress Note Date: 11/05/17 This is a 76-year-old female patient of Dr. Yuen and Dr. Garcia with past medical history significant for CLL, hypertension, osteoarthritis, ITP. A Chin gives history that she has been treated for pneumonia about [address] Yuen and placed on antibiotic. She underwent a CAT scan at [facility] and was then placed on another course of antibiotics and also steroids. During this time she also was started on water pills possibly by Dr. Garcia. She was known to have a right-sided pleural effusion. Patient was at Dr. Garcia's office yesterday and her blood pressure was low. She received IV fluids the blood pressure continued to be low and she was sent to [facility] emergency center for evaluation. Patient states that she did have a cough that was nonproductive but this is resolved. She does complain of weakness but no lightheadedness or dizziness. She denies any dysuria. She states that she cannot get enough air and she has been very short of breath. She had a chest x-ray that shows moderate to large right-sided pleural effusion. There could be underlying adjacent atelectasis and/or consolidation. White count was 14.1, hemoglobin 10, platelet count 172, potassium 3.2, BUN 23 and creatinine 1.13. Troponin was 0.016. Total bilirubin 2.4 and liver enzymes within normal limits. ProBNP 874. Patient was found to be in atrial fibrillation with RVR running in the 120s which is new onset. Daughter states the patient has had a 30 pound weight loss since August. She has not eating well and in general not feeling good. Ensure has been ordered. Patient is also scheduled for IVIG next week which she receives about 2 times per year.\ 10/30: Patient underwent large-volume thoracenteses of over 2 L on the right lung on 10/29/2017, patient has improved dyspnea, dyspnea improving, patient denies any chest discomfort or palpitations. Oxygen saturations improving, Pleural effusion sent for cytology and cultures, exudative effusion is suspected anticoagulation for A. fib is still on hold, awaiting final plans for possible repeat thoracentesis in the future 10/31: Patient is clinically better without any significant shortness of breath, patient did not have any PND last night,events, no hypoxemia, patient's chest x- ray seems to be worse compared to previous, pulmonary is following closely, awaiting final cytologies, patient might need repeat thoracenteses vs pleurx catheter placement 11/01: Chest x-ray from yesterday showed worsening effusion. Will ask for cardiothoracic consult to evaluate for Pleurx catheter. Repeat chest x-ray ordered today. Prescription has been signed for walker for home. 11/02: Repeat chest x-ray shows minimal improvement in the moderate right pleural effusion and right-sided airspace disease likely compressive atelectasis. Patient has been seen by cardiothoracic surgery. Cytology report remains pending. Patient is scheduled for IVIG by oncology. Patient feels like her breathing is a little better from yesterday. 11/03: Repeat chest x-ray shows moderate right-sided pleural effusion persists and is essentially unchanged. Underlying infiltrate, mass or atelectasis not excluded. Cytology report remains pending. Pulse ox is 94% on room air. Heart rate this morning was elevated at 152 the patient remains in a sinus rhythm and repeat HR improved. Patient states that she feels the lung is siu again as she has an odd sensation when she swallows. No dysphagia or choking. 11/04: Right pleural fluid pathology report is consistent with chronic lymphocytic leukemia. Repeat chest x-ray shows persistent moderate to large sized pleural effusion on the right. No significant change from one day earlier. Cardiothoracic surgery is planning for Pleurx catheter placement tomorrow. Patient has had decreased appetite we are changing her diet to regular diet and patient family may bring food into her. She did have some nausea and vomiting this morning for which Zofran was ordered. Patient is complaining of chills. 11/05: Patient underwent Pleurx placement today with Dr. Graf with marked improvement of pleural effusion. Patient continues to eat very poorly. Offered any type of supplement to the patient. Anticipate possible discharge by tomorrow. We will request anticoagulation recommendations from cardiology regarding A. fib. Objective - Vital Signs Vital signs: Vital Signs Temp 99 F 11/05/17 07:02 Pulse 90 11/05/17 07:02 Resp 16 11/05/17 07:02 BP 93/62 11/05/17 07:02 Pulse Ox 96 11/05/17 07:02 Intake & Output 11/04/17 11/05/17 11/05/17 18:59 06:59 18:59 Intake Total 100 120 100 Output Total 300 Balance 100 -180 100 Weight 68 kg Intake: IV 100 Oral 100 120 Output: Urine 300 Other: Voiding Method Toilet Toilet # Voids 2 1 - Exam General appearance: Present: average body habitus, cooperative, no acute distress. Absent: disheveled, mild distress, morbidly obese, obese, severe distress, thin - EENT Eyes: Present: anicteric sclerae, EOMI, PERRLA, dentition normal, normal appearance. Absent: abnormal pupil, disc margins sharp, edentulous, fundus normal, photophobia, poor dentition, ptosis, scleral icterus ENT: Present: NA/AT, normal oropharynx - Neck Neck: Present: normal ROM - Respiratory Respiratory: right: diminished, dullness, left: CTA, negative: rales, rhonchi, wheezing, prolonged expiration, prolonged inspiration - Cardiovascular Rhythm: regular Heart sounds: normal: S1, S2 - Gastrointestinal General gastrointestinal: Present: normal bowel sounds, soft - Integumentary Integumentary: Present: normal, normal turgor - Neurologic Neurologic: Present: CNII-XII intact - Psychiatric Psychiatric: Present: A&O x's 3, appropriate affect, intact judgment & insight - Labs CBC & Chem 7: 11/05/17 06:05 11/05/17 06:05 Labs: Abnormal Lab Results - Last 24 Hours (Table) 11/04/17 11/05/17 11/05/17 Range/Units 12:14 06:05 06:05 RBC 3.31 L (3.80-5.40) m/uL Hgb 10.4 L (11.4-16.0) gm/dL Hct 33.8 L (34.0-46.0) % MCV 102.1 H (80.0-100.0) fL MCHC 30.8 L (31.0-37.0) g/dL Plt Count 104 L (150-450) k/uL PT 12.1 H (9.0-12.0) sec INR 1.3 H (<1.2) Chloride 114 H (98-107) mmol/L Carbon Dioxide 20 L (22-30) mmol/L BUN 21 H (7-17) mg/dL Creatinine 1.84 H (0.52-1.04) mg/dL Glucose 100 H (74-99) mg/dL Assessment and Plan Plan: 1. Hypotension secondary to a combination of dehydration and atrial fibrillation with RVR. 2. New onset atrial fibrillation with rapid ventricular response, converted to sinus rhythm. Cardiology consult is appreciated. IV Cardizem discontinued. Patient started on Lopressor. Anticoagulation per cardiology. 3. Acute hypoxic respiratory failure secondary to a large right-sided pleural effusion. Consult with Dr. Chavez. Status post right-sided thoracentesis. Continue oxygen therapy. Consult with cardiothoracic surgery for Pleurx catheter placement to be done on November 05. 4. Chronic lymphocytic leukemia under the care of Dr Garcia. Patient is on Imbruvica. 5. Gastroesophageal reflux disease and GI prophylaxis. Continue omeprazole. 6. Hypertension. Continue amlodipine 5 mg daily. 7. Anemia of chronic disease. Continue ferrous sulfate. 8. Gout. Continue allopurinol. 9. General anxiety disorder and recurrent depression. Continue Ativan as needed and Celexa 20 mg daily. 10. Acute kidney failure with chronic kidney disease stage II. 11. Chemotherapy-induced bicytopenia, megalocytosis. Oncology is following. 12. DVT prophylaxis. KAMERON hose and SCDs. 13. 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 IVIG ordered by oncology. Discharge plan: Return home, patient may benefit from home care. Walker ordered by case management. Impression and plan of care have been directed as dictated by the signing physician. Maggi Watson nurse practitioner acting as scribe for signing physician.
[2017-11-05] MEDS: CALCIUM CARB-VIT D 500MG-200UN 1 EACH TAB PO SCH (14:44)
[2017-11-05] MEDS: CHOLECALCIFEROL 1,000 UNIT TAB PO SCH (14:45)
[2017-11-05] MEDS: FERROUS SULFATE 325 MG TAB PO SCH (14:45)
[2017-11-05] MEDS: MULTIVITAMINS, THERA 1 EACH TAB PO SCH (14:45)
[2017-11-05] MEDS: APIXABAN 2.5 MG TABLET PO SCH ×2 (15:01→20:14)
[2017-11-05] MEDS: SODIUM CHLORIDE 0.9% 1,000 ML IV SCH (16:57)
[2017-11-05] MEDS: ALLOPURINOL 100 MG TAB PO SCH (20:14)
[2017-11-05] MEDS: MONTELUKAST 10 MG TAB PO SCH (20:14)
[2017-11-06 06:41] LABS: HCT 32.2 % (34.0-46.0); HGB 9.7 gm/dL (11.4-16.0); Hypochromasia Moderate; MCH 30.7 pg (25.0-35.0); MCHC 30.1 g/dL (31.0-37.0); MCV 101.9 fL (80.0-100.0); Macrocytosis Slight; Mean Platelet Volume 9.3; Platelet Count 95 k/uL (150-450); Poikilocytosis Slight; RBC 3.16 m/uL (3.80-5.40); RDW 15.1 % (11.5-15.5); WBC 8.1 k/uL (3.8-10.6)
[2017-11-06] MEDS: LACTATED RINGERS 1,000 ML IV SCH (07:45)
--- NOTE | 2017-11-06 08:00 | XR ---
EXAMINATION TYPE: XR chest 2V DATE OF EXAM: 11/06/2017 COMPARISON: NONE INDICATION: Pleural catheter placement TECHNIQUE: Frontal and lateral views of the chest are obtained. FINDINGS: The heart size is normal. The pulmonary vasculature is normal. There is a small right pleural effusion. There is a catheter present on the right. As previously desc ribed 5 ports 3 within the pleural space, currently at the level of the diaphragm with 3 ports in the extrathoracic space suggesting this is pulled back somewhat from prior exam. IMPRESSION: 1. Small right pleural effusion. 2. Catheter present on the right, this may been pulled back slightly with 3 ports now outside of the thoracic cavity.
[2017-11-06 08:27] LABS: Monocytes # (M) 0.32 k/uL (0-1.0); Neutrophils # (M) 1.38 k/uL (1.3-7.7); Neutrophils % (M) 17 %; Nucleated Red Blood Cells 0 /100 WBC (0-0); Total Cells Counted 100
[2017-11-06 08:30] LABS: Ovalocytes Present
[2017-11-06] MEDS: ACETAMINOPHEN TAB 500 MG TAB PO PRN (08:37)
[2017-11-06] MEDS: PANTOPRAZOLE 40 MG TABLET PO SCH (08:37)
[2017-11-06] MEDS: METOPROLOL TARTRATE 25 MG TAB PO SCH (08:38)
[2017-11-06] MEDS: CITALOPRAM HYDROBROMIDE 20 MG TAB PO SCH (08:38)
[2017-11-06] MEDS: APIXABAN 2.5 MG TABLET PO SCH (08:38)
[2017-11-06] MEDS: amLODIPine 5 MG TAB PO SCH (08:38)
[2017-11-06 08:43] VITALS: RESP 16; TEMP 97.6
[2017-11-06] MEDS ORDERED: SODIUM CHLORIDE 0.9% 500 ML IV ONE (09:39)
[2017-11-06 09:48] LABS: Calcium 8.8 mg/dL (8.4-10.2); Potassium 3.8 mmol/L (3.5-5.1)
--- NOTE | 2017-11-06 11:19 | P.DS ---
Providers Date of admission: 10/28/17 15:49 Expected date of discharge: 11/06/17 Attending physician: Franck Reyes Consults: 10/28/17 15:50 Consult Physician Urgent Consulting Provider: Polina Garcia Consult Reason/Comments: Oncological care Do you want consulting provider notified?: Yes Consult Physician Urgent Consulting Provider: Thomas Martin Consult Reason/Comments: a fib w rvr Do you want consulting provider notified?: Yes 10/28/17 16:25 Consult Physician Urgent Consulting Provider: Chapis Chavez Consult Reason/Comments: effusion Do you want consulting provider notified?: Yes 11/01/17 13:39 Consult Physician Routine Consulting Provider: Juma Killian Consult Reason/Comments: Pleurx eval Do you want consulting provider notified?: Yes Primary care physician: [facility] Course: This is a 76-year-old female patient of Dr. Yuen and Dr. Garcia with past medical history significant for CLL, hypertension, osteoarthritis, ITP. A Chin gives history that she has been treated for pneumonia about [address] Yuen and placed on antibiotic. She underwent a CAT scan at [facility] and was then placed on another course of antibiotics and also steroids. During this time she also was started on water pills possibly by Dr. Garcia. She was known to have a right-sided pleural effusion. Patient was at Dr. Garcia's office yesterday and her blood pressure was low. She received IV fluids the blood pressure continued to be low and she was sent to [facility] emergency center for evaluation. Patient states that she did have a cough that was nonproductive but this is resolved. She does complain of weakness but no lightheadedness or dizziness. She denies any dysuria. She states that she cannot get enough air and she has been very short of breath. She had a chest x-ray that shows moderate to large right-sided pleural effusion. There could be underlying adjacent atelectasis and/or consolidation. White count was 14.1, hemoglobin 10, platelet count 172, potassium 3.2, BUN 23 and creatinine 1.13. Troponin was 0.016. Total bilirubin 2.4 and liver enzymes within normal limits. ProBNP 874. Patient was found to be in atrial fibrillation with RVR running in the 120s which is new onset. Daughter states the patient has had a 30 pound weight loss since August. She has not eating well and in general not feeling good. Ensure has been ordered. Patient is also scheduled for IVIG next week which she receives about 2 times per year.\ 10/30: Patient underwent large-volume thoracenteses of over 2 L on the right lung on 10/29/2017, patient has improved dyspnea, dyspnea improving, patient denies any chest discomfort or palpitations. Oxygen saturations improving, Pleural effusion sent for cytology and cultures, exudative effusion is suspected anticoagulation for A. fib is still on hold, awaiting final plans for possible repeat thoracentesis in the future 10/31: Patient is clinically better without any significant shortness of breath, patient did not have any PND last night,events, no hypoxemia, patient's chest x- ray seems to be worse compared to previous, pulmonary is following closely, awaiting final cytologies, patient might need repeat thoracenteses vs pleurx catheter placement 11/01: Chest x-ray from yesterday showed worsening effusion. Will ask for cardiothoracic consult to evaluate for Pleurx catheter. Repeat chest x-ray ordered today. Prescription has been signed for walker for home. 11/02: Repeat chest x-ray shows minimal improvement in the moderate right pleural effusion and right-sided airspace disease likely compressive atelectasis. Patient has been seen by cardiothoracic surgery. Cytology report remains pending. Patient is scheduled for IVIG by oncology. Patient feels like her breathing is a little better from yesterday. 11/03: Repeat chest x-ray shows moderate right-sided pleural effusion persists and is essentially unchanged. Underlying infiltrate, mass or atelectasis not excluded. Cytology report remains pending. Pulse ox is 94% on room air. Heart rate this morning was elevated at 152 the patient remains in a sinus rhythm and repeat HR improved. Patient states that she feels the lung is siu again as she has an odd sensation when she swallows. No dysphagia or choking. 11/04: Right pleural fluid pathology report is consistent with chronic lymphocytic leukemia. Repeat chest x-ray shows persistent moderate to large sized pleural effusion on the right. No significant change from one day earlier. Cardiothoracic surgery is planning for Pleurx catheter placement tomorrow. Patient has had decreased appetite we are changing her diet to regular diet and patient family may bring food into her. She did have some nausea and vomiting this morning for which Zofran was ordered. Patient is complaining of chills. 11/05: Patient underwent Pleurx placement today with Dr. Graf with marked improvement of pleural effusion. Patient continues to eat very poorly. Offered any type of supplement to the patient. Anticipate possible discharge by tomorrow. We will request anticoagulation recommendations from cardiology regarding A. fib. 11/06: Hemoglobin is stable at 9.7. BUN 24 and creatinine 2.19. Patient continues to eat very little and stated that she has no appetite. She denies any nausea or vomiting. She did have 1 loose stool yesterday. Patient has been encouraged increased oral intake especially water hourly basis. She has no new complaints. Breathing status is stable. Chest x-ray does show small right pleural effusion. Catheter may have been pulled back slightly with reports outside of the thoracic cavity. Once patient is evaluated by cardiothoracic surgery, plan discharge home. Discussed with patient, that she may consider hospice care in the near future. Patient will be discharged home today in stable condition. Discharge diagnoses: 1. Hypotension secondary to a combination of dehydration and atrial fibrillation with RVR. 2. New onset atrial fibrillation with rapid ventricular response, converted to sinus rhythm. 3. Acute hypoxic respiratory failure secondary to a large right-sided pleural effusion. Status post Pleurx catheter placement to be done on November 05. 4. Chronic lymphocytic leukemia under the care of Dr Garcia. 5. Gastroesophageal reflux disease 6. Hypertension. 7. Anemia of chronic disease. 8. Gout unspecified 9. General anxiety disorder and recurrent depression. 10. Acute kidney failure with chronic kidney disease stage II. 11. Chemotherapy-induced bicytopenia, megalocytosis. 12. 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 I Discharge plan: Return home with VNA. Walker ordered by case management. Impression and plan of care have been directed as dictated by the signing physician. Maggi Watson nurse practitioner acting as scribe for signing physician. Patient Condition at Discharge: Stable Plan - Discharge Summary Discharge Rx Participant: No New Discharge Prescriptions: New Apixaban [Eliquis] 2.5 mg PO BID #60 tablet Metoprolol Tartrate [Lopressor] 25 mg PO TID #90 tab Continue amLODIPine BESYLATE [Amlodipine Besylate] 5 mg PO DAILY Allopurinol 100 mg PO HS Meclizine [Antivert] 25 mg PO TID PRN PRN Reason: Motion Sickness LORazepam [Ativan] 0.5 mg PO BID PRN PRN Reason: Anxiety Calcium Carbonate/Vitamin D3 [Caltrate 600 Plus D3 Tablet] 1 tab PO DAILY Ferrous Sulfate [Feosol] 325 mg PO DAILY Lutein 10 mg PO DAILY Multivitamins, Thera [Multivitamin (formulary)] 1 tab PO DAILY Omeprazole [PriLOSEC] 20 mg PO DAILY Cholecalciferol [Vitamin D3] 1,000 unit PO DAILY Citalopram Hydrobromide [CeleXA] 20 mg PO DAILY Imbruvica 140mg 420 mg PO DAILY Montelukast [Singulair] 10 mg PO HS Discharge Medication List Allopurinol 100 mg PO HS 07/20/14 [History] Calcium Carbonate/Vitamin D3 [Caltrate 600 Plus D3 Tablet] 1 tab PO DAILY [History] Cholecalciferol [Vitamin D3] 1,000 unit PO DAILY 07/20/14 [History] Ferrous Sulfate [Feosol] 325 mg PO DAILY 07/20/14 [History] LORazepam [Ativan] 0.5 mg PO BID PRN 07/20/14 [History] Lutein 10 mg PO DAILY 07/20/14 [History] Meclizine [Antivert] 25 mg PO TID PRN 07/20/14 [History] Multivitamins, Thera [Multivitamin (formulary)] 1 tab PO DAILY 07/20/14 [History ] Omeprazole [PriLOSEC] 20 mg PO DAILY 07/20/14 [History] amLODIPine BESYLATE [Amlodipine Besylate] 5 mg PO DAILY 07/20/14 [History] Citalopram Hydrobromide [CeleXA] 20 mg PO DAILY 10/28/17 [History] Imbruvica 140mg 420 mg PO DAILY 10/28/17 [History] Montelukast [Singulair] 10 mg PO HS 10/28/17 [History] Apixaban [Eliquis] 2.5 mg PO BID #60 tablet 11/06/17 [Rx] Metoprolol Tartrate [Lopressor] 25 mg PO TID #90 tab 11/06/17 [Rx] Follow up Appointment(s)/Referral(s): Rohit Romo MD [STAFF PHYSICIAN] - 1 Week Jake Yuen MD [Primary Care Provider] - 11/12/17 12:00 pm Robbie Roues DO [Doctor of Osteopathic Medicine] - 1 Week [facility] Visiting Nurse, [NON-STAFF] - Polina Garcia MD [STAFF PHYSICIAN] - 1 Week Activity/Diet/Wound Care/Special Instructions: [facility] - [phone] - will deliver to bedside before discharge. PleurX kits ordered: #[phone], fax#[phone] Discharge Disposition: HOME WITH HOME HEALTH SERVICES
[2017-11-06 12:59] VITALS: BP 106/57; PULSE 65
--- NOTE | 2017-11-06 13:47 | P.PN ---
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 History of chronic lymphocytic leukemia, hypertension, osteoarthritis, depression, remote tobacco dependence, vitamin D deficiency, GERD, macular degeneration, ITP. New onset paroxysmal atrial fibrillation. POD #1 insertion of right Pleurx catheter. Patient's currently sitting up in the bed in no acute distress. Remains on room air and states she feels significantly better than when she came in. Denies any pain. States her children have been trained for Pleurx catheter drainage and she feels comfortable that they know how to perform the procedure. Objective - Vital Signs Vital signs: Vital Signs Temp 97.6 F 11/06/17 08:30 Pulse 65 11/06/17 11:10 Resp 16 11/06/17 11:10 BP 106/57 11/06/17 11:10 Pulse Ox 97 11/06/17 11:10 Intake & Output 11/05/17 11/06/17 11/06/17 18:59 06:59 18:59 Intake Total 915 240 Output Total 2 700 Balance 913 -460 Weight 66.4 kg Intake: IV 675 Intake, IV Titration 240 Amount Lactated Ringers 1,000 ml 240 @ 20 mls/hr IV .Q24H FRANCK Rx#:[id number] Oral 240 Output: Urine 700 Estimated Blood Loss 2 Other: Voiding Method Toilet Toilet # Voids 3 2 - Constitutional General appearance: Present: cooperative, no acute distress - Respiratory Details: Lungs sounds diminished bilaterally, right greater than left. Respirations even , nonlabored. Currently on room air with oxygen saturation 97%. Able to achieve 1000 mL on her incentive spirometry. Right Pleurx catheter present, occlusive dressing present. - Cardiovascular Details: S1, S2 present. Regular rate and rhythm, sinus rhythm on telemetry. Palpable peripheral pulses bilaterally. No edema present. No calf pain or tenderness noted. - Gastrointestinal Gastrointestinal Comment(s): Abdomen soft, nontender, nondistended. Active bowel sounds 4 quadrants. Tolerating minimal diet. - Genitourinary Genitourinary Comment(s): Continues to void. - Integumentary Integumentary Comment(s): Skin is warm and dry with evidence of good perfusion. - Neurologic Neurologic: Present: CNII-XII intact - Musculoskeletal Musculoskeletal: Present: gait normal, strength equal bilaterally - Psychiatric Psychiatric: Present: A&O x's 3, appropriate affect, intact judgment & insight - Allied health notes Allied health notes reviewed: nursing - Labs CBC & Chem 7: 11/06/17 06:21 11/06/17 06:21 Labs: Abnormal Lab Results - Last 24 Hours (Table) 11/06/17 11/06/17 Range/Units 06:21 06:21 RBC 3.16 L (3.80-5.40) m/uL Hgb 9.7 L (11.4-16.0) gm/dL Hct 32.2 L (34.0-46.0) % MCV 101.9 H (80.0-100.0) fL MCHC 30.1 L (31.0-37.0) g/dL Plt Count 95 L (150-450) k/uL Lymphocytes # (Manual) 6.40 H (1.0-4.8) k/uL Chloride 112 H (98-107) mmol/L BUN 24 H (7-17) mg/dL Creatinine 2.19 H (0.52-1.04) mg/dL - Imaging and Cardiology Chest x-ray: report reviewed, image reviewed Assessment and Plan (1) CLL (chronic lymphocytic leukemia) Current Visit: Yes Status: Chronic Priority: High Code(s): C91.90 - LYMPHOID LEUKEMIA, UNSPECIFIED NOT HAVING ACHIEVED REMISSION SNOMED Code(s): 62189659 (2) History of ITP Current Visit: No Status: Chronic Code(s): Z86.2 - PRSNL HISTORY OF DIS OF THE BLD[facility]BLD[facility]FORM [facility] Code(s): 362224017 (3) History of hypertension Current Visit: Yes Status: Chronic Code(s): Z86.79 - PERSONAL HISTORY OF OTHER DISEASES OF THE CIRCULATORY SYSTEM SNOMED Code(s): 396294002 (4) Pleural effusion, right Current Visit: Yes Status: Acute Priority: High Code(s): J90 - PLEURAL EFFUSION, NOT ELSEWHERE CLASSIFIED SNOMED Code(s): 14643274 Plan: 1. Pleurx catheter placed yesterday. Two of the patient's children have been oriented to drainage procedure, one daughter is a nurse with home care experience and Pleurx catheter drainage experience. 2. Cytology positive for chronic lymphocytic leukemia. Management per oncology. 3. Rhythm, rate management per cardiology. 4. May be discharged home with home care from our standpoint once okay with other services. Home care should call our office weekly with drainage amounts to determine timing of discontinuation of Pleurx catheter. Time with Patient: Greater than 30
[2017-11-06] MEDS: FERROUS SULFATE 325 MG TAB PO SCH (14:33)
[2017-11-06] MEDS: CHOLECALCIFEROL 1,000 UNIT TAB PO SCH (14:33)
[2017-11-06] MEDS: CALCIUM CARB-VIT D 500MG-200UN 1 EACH TAB PO SCH (14:33)
[2017-11-06] MEDS: MULTIVITAMINS, THERA 1 EACH TAB PO SCH (14:33)
--- NOTE | 2017-11-06 14:48 | PN ---
PROGRESS NOTE DATE OF SERVICE: 11/06/2017 CHIEF COMPLAINT: Tired. Keiry is seen today as a followup. She feels tired. She had another thoracentesis yesterday and PleurX catheter was placed on the right side. But overall she has been relatively stable and about to be discharged home. PHYSICAL EXAMINATION: She is alert and oriented x3. She does not appear to be in acute distress. Her vital signs, temperature 97.6 afebrile, pulse 65, respiration 18, blood pressure 106/57. HEENT: Normocephalic, atraumatic. Neck is supple. Chest equal expansion bilaterally. Lungs reveal decreased breath sounds right base about care home up. Heart is regular rate and rhythm. Abdomen is soft. No tenderness. Extremities reveal no edema. MEDICATION: Reviewed in her electronic medical record. LABORATORY DATA: From today, WBC are 8.1, hemoglobin 9.7, hematocrit is 32.2, platelets are 95. IMPRESSION: 1. Chronic lymphocytic leukemia. The patient has progressed on oral Imbruvica after she has been on it for about 40 years. 2. Recurrent pleural effusion related to her underlying chronic lymphocytic leukemia. 3. Anemia also related to above. RECOMMENDATION: 1. I agree with discharging patient home today. 2. We would obtain additional fresh analysis on her recent flow cytometry in the outpatient setting. 3. Next line of systemic treatment will be determined in the outpatient setting. I did discuss that with the patient at bedside and she will see me in the office shortly after discharge. MMODL / IJN: [id number] /
== END 2017-11-06 15:00 | disposition home health service (06) | DRG 840 ==
LOC: EC 13:43 → 6SEL 15:49
PROVIDERS: ADMIT Internal Medicine; ATTEND Internal Medicine
PROC: 0W993ZZ Drainage of Right Pleural Cavity, Percutaneous Approach (ICD-10-PCS; principal; 2017-10-29)
PROC: 0B9N30Z Drainage of Right Pleura with Drainage Device, Percutaneous Approach (ICD-10-PCS; 2017-11-05)
DX: C91.10 Chronic lymphocytic leukemia of B-cell type not having achieved remission (principal); J96.01 Acute respiratory failure with hypoxia; N17.9 Acute kidney failure, unspecified; J91.0 Malignant pleural effusion; D69.3 Immune thrombocytopenic purpura; D80.1 Nonfamilial hypogammaglobulinemia; F33.9 Major depressive disorder, recurrent, unspecified; I08.3 Combined rheumatic disorders of mitral, aortic and tricuspid valves; E86.0 Dehydration; I48.0 Paroxysmal atrial fibrillation; J98.11 Atelectasis; I27.20 Pulmonary hypertension, unspecified; D63.0 Anemia in neoplastic disease; F41.1 Generalized anxiety disorder; H35.30 Unspecified macular degeneration; H91.90 Unspecified hearing loss, unspecified ear; I12.9 Hypertensive chronic kidney disease with stage 1 through stage 4 chronic kidney disease, or unspecified chronic kidney disease; K21.9 Gastro-esophageal reflux disease without esophagitis; M10.9 Gout, unspecified; M19.90 Unspecified osteoarthritis, unspecified site; N18.2 Chronic kidney disease, stage 2 (mild); T45.1X5A Adverse effect of antineoplastic and immunosuppressive drugs, initial encounter; Z82.0 Family history of epilepsy and other diseases of the nervous system; Z79.899 Other long term (current) drug therapy; Z82.49 Family history of ischemic heart disease and other diseases of the circulatory system; Z87.442 Personal history of urinary calculi; Z87.891 Personal history of nicotine dependence; Z90.710 Acquired absence of both cervix and uterus; Z98.84 Bariatric surgery status; Z88.5 Allergy status to narcotic agent
CPT/HCPCS: 36415; 71045; 71046; 76604; 80048; 80053; 82550; 82553; 82945; 83010; 83615; 83735; 83880; 84100; 84132; 84157; 84484; 85025; 85027; 85045; 85610; 85730; 86850; 86900; 86901; 87070; 87075; 87102; 87116; 87205; 87206; 88108; 88305; 89050; 93005; 93306; 96361; 96365; 99291